=== PATIENT | female | born 1960 | race Caucasian/White ===

== ENCOUNTER 2017-07-09 08:04 | Inpatient (IN) | payer OTHER ==
[2017-07-09] MEDS ORDERED: FUROSEMIDE 40 MG/4 ML VIAL ONE (08:46)
[2017-07-09 08:59] LABS: Absolute Lymphocytes (CBC) 2.3 K/uL (0.7-4.9); Absolute Monocytes 1.1 K/uL (0.1-1.3); Absolute Neutrophil 6.8 K/uL (1.8-8.0); Basophils % 0.7 % (0-1.3); Eosinophils % 1.8 % (0-4.4); Hematocrit 38.8 % (36.0-45.0); Lymphocytes % 22.2 % (15.3-44.8); MCH 28.9 pg (27.0-35.0); MPV 8.7 fL (7.6-11.3); Monocytes % 10.4 % (3.3-12.3); RBC Red Blood Cell Count 4.31 M/uL (3.86-4.86)
[2017-07-09 09:05] LABS: Arterial Blood Carboxyhemoglob 4.2 % (0-1.5); Blood Gas Oxyhemoglobin 83.3 % (94-97)
[2017-07-09 09:08] LABS: Protime INR 0.97
--- NOTE | 2017-07-09 09:11 | RAD REPORT ---
EXAM DESCRIPTION: RAD - Chest Single View - 07/09/2017 9:00 am CLINICAL HISTORY: Shortness of breath, lower extremity swelling COMPARISON: July 2014 TECHNIQUE: AP portable chest image was obtained 0844 hours . FINDINGS: The interstitial markings are prominent and there are patchy alveolar opacities throughout the lung verma. Cardiomegaly is present even for portable imaging. Heart size is not substantially different from the prior study. Vascular engorgement is present. No pneumothorax seen. No large pleur al effusions seen. Small posterior gutter pleural effusions could still be present. Trachea is midlin e. No gross bony abnormality seen. No acute aortic findings suspected. IMPRESSION: Moderate CHF/ volume overload pattern.
--- NOTE | 2017-07-09 09:26 | RAD REPORT ---
EXAM DESCRIPTION: CT - Head Brain Wo Cont - 07/09/2017 9:20 am CLINICAL HISTORY: Trauma, transient alteration of awareness COMPARISON: CT head May 2008 TECHNIQUE: Axial 5 mm thick images of the head were obtained without IV contrast. All CT scans are performed using dose optimization technique as appropriate and may include automated exposure control or mA/KV adjustment according to patient size. FINDINGS: No intracranial hemorrhage, mass, edema or shift of mid-line structures. No acute infarcti on changes seen. No abnormal extra-axial fluid collections. Ventricles are normal. Mastoid air cells and visualized portions of the paranasal sinuses are clear. No acute bony findings. No significant change from the comparison. IMPRESSION: Negative non-contrast CT head examination.
[2017-07-09] MEDS ORDERED: ALBUTEROL 2.5 MG/3 ML NEB SOL ONE (09:49)
[2017-07-09 10:01] LABS: Urine Blood NEGATIVE (NEG); Urine Glucose NEGATIVE (NEG); Urine Protein NEGATIVE (NEG); Urine Specific Gravity 1.015 (1.005-1.030); Urine pH 5.5 (5.0-7.0)
[2017-07-09] MEDS ORDERED: LIDOCAINE JELLY 2%- 5 ML TUBE ONE (10:17)
[2017-07-09] MEDS ORDERED: LORazepam 2 MG/ML VIAL ONE ×3 (10:17→14:13)
--- NOTE | 2017-07-09 10:40 | EDPHYS ---
Physician Documentation [facility] Name: Harriet Perera Age: 56 yrs Sex: Female : 1960 Arrival Date: 07/09/2017 Time: 08:07 Bed 8 Private MD: Néstor Givens E ED Physician Wil Gorman HPI: 07/09 10:41 This 56 yrs old Female presents to ER via Ambulatory with complaints of Feet snw Swelling, Shortness Of Breath, Confusion. 10:41 The patient has shortness of breath at rest. Onset: The symptoms/episode began/occurred snw suddenly. Duration: The symptoms are continuous, and are steadily getting worse. Associated signs and symptoms: Pertinent positives: non-productive cough, NUGENT. Severity of symptoms: At their worst the symptoms were severe this morning. The patient has not experienced similar symptoms in the past. The patient has been recently seen by a physician: the patient's primary care provider, Dr. Sony Pickett with similar presenting complaints, outpt labs and added lasix 20mg po daily. Historical: - Allergies: 08:30 surgical tape; hb 08:30 Motrin; hb - Home Meds: 08:54 tramadol 50 mg Oral tab twice a day [Active]; bupropion HCl 100 mg Oral tab daily iw [Active]; furosemide 20 mg Oral tab 1 tab once daily [Active]; metformin 500 mg Oral tr24 twice a day [Active]; metoprolol tartrate 50 mg Oral tab 1 tab 2 times per day [Active]; Ambien 10 mg Oral tab 1 tab once daily [Active]; - PMHx: 08:30 Diabetes - NIDDM; Hypertension; hb - PSHx: 08:30 Cholecystectomy; hb - Immunization history:: Adult Immunizations up to date. - Social history:: Smoking status: Patient uses tobacco products, smokes one pack cigarettes per day. - Ebola Screening: : No symptoms or risks identified at this time. ROS: 10:21 Eyes: Negative for injury, pain, redness, and discharge, ENT: Negative for injury, snw pain, and discharge, Neck: Negative for injury, pain, and swelling, Cardiovascular: Negative for chest pain, palpitations, and edema. 10:21 Abdomen/GI: Negative for abdominal pain, nausea, vomiting, diarrhea, and constipation, Back: Negative for injury and pain, : Negative for injury, bleeding, discharge, and swelling, MS/Extremity: Negative for injury and deformity, Skin: Negative for injury, rash, and discoloration, Neuro: Negative for headache, weakness, numbness, tingling, and seizure, Psych: Negative for depression, anxiety, suicide ideation, homicidal ideation, and hallucinations. 10:21 Constitutional: Positive for body aches, fatigue, malaise, poor PO intake. 10:21 Respiratory: Positive for shortness of breath, on exertion. Exam: 08:37 Eyes: Pupils equal round and reactive to light, extra-ocular motions intact. Lids and snw lashes normal. Conjunctiva and sclera are non-icteric and not injected. Cornea within normal limits. Periorbital areas with no swelling, redness, or edema. ENT: Nares patent. No nasal discharge, no septal abnormalities noted. Tympanic membranes are normal and external auditory canals are clear. Oropharynx with no redness, swelling, or masses, exudates, or evidence of obstruction, uvula midline. Mucous membranes moist. Neck: Trachea midline, no thyromegaly or masses palpated, and no cervical lymphadenopathy. Supple, full range of motion without nuchal rigidity, or vertebral point tenderness. No Meningismus. Chest/axilla: Normal chest wall appearance and motion. Nontender with no deformity. No lesions are appreciated. 08:37 Abdomen/GI: Soft, non-tender, with normal bowel sounds. No distension or tympany. No guarding or rebound. No evidence of tenderness throughout. Back: No spinal tenderness. No costovertebral tenderness. Full range of motion. 08:37 Constitutional: The patient appears awake, obese, in obvious distress, obviously ill, unkempt. 08:37 Constitutional: The patient appears diaphoretic. 08:37 Head/face: Noted is abrasion(s), that are moderate, of the right cheek. 08:37 Cardiovascular: Rhythm: regular, Pulses: no pulse deficits are appreciated, Heart sounds: murmur, Edema: 3+ edema to level of , JVD: is noted bilaterally. 08:37 Respiratory: moderate respiratory distress is noted, Respirations: shallow respirations, tachypnea, Breath sounds: decreased breath sounds, are located in both bases. 08:37 Skin: lower extremities bilaterally with erythema, warmth. 08:37 Neuro: Orientation: to person, confused, awake and talking but speech does not flow and pt has difficulty answering questions, Motor: Vital Signs: 08:23 BP 130 / 78; Pulse 74; Resp 21; Temp 98.1(O); Pulse Ox 75% on R/A; Pain 4/10; hb 08:30 Pulse Ox 90% on 3 lpm NC; hb 09:25 BP 130 / 75; Pulse 76; Resp 17; Pulse Ox 96% on 35% BiPAP; hb 10:06 BP 126 / 67; Pulse 64; Resp 20; Pulse Ox 93% on 35% BiPAP; hb 11:00 BP 120 / 65; Pulse 69; Resp 68; Pulse Ox 92% on 35% BiPAP; hb 11:45 BP 154 / 65; Pulse 66; Resp 22; Pulse Ox 92% on 35% BiPAP; hb 12:30 BP 141 / 73; Pulse 77; Resp 22; Pulse Ox 95% on 35% BiPAP; hb MDM: 08:20 Patient medically screened. snw 10:39 Data reviewed: vital signs, nurses notes. Data interpreted: Pulse oximetry: on room air snw is 77 %. Interpretation: hypoxia. Plan: will initiate a nebulizer treatment. placed on bi-pap. Counseling: I had a detailed discussion with the patient and/or guardian regarding: the historical points, exam findings, and any diagnostic results supporting the discharge/admit diagnosis, lab results, radiology results, the need for further work-up and treatment in the hospital. Physician consultation: Citlaly Medina MD was called at 10:00, was contacted at 10:00, regarding admission, to the ICU, patient's condition. 07/09 08:35 Order name: Basic Metabolic Panel; Complete Time: 11:28 snw 07/09 08:35 Order name: Blood Culture Adult (2) snw 07/09 08:35 Order name: BNP; Complete Time: 09:20 snw 07/09 08:35 Order name: C-Reactive Protein; Complete Time: 11:28 snw 07/09 08:35 Order name: CBC with Diff; Complete Time: 09:07 snw 07/09 08:35 Order name: Ckmb; Complete Time: 11:28 snw 07/09 08:35 Order name: CPK; Complete Time: 11:28 snw 07/09 08:35 Order name: Lactate; Complete Time: 09:16 snw 07/09 08:35 Order name: LFT's; Complete Time: 11:28 snw 07/09 08:35 Order name: Lipase; Complete Time: 11:28 snw 07/09 08:35 Order name: Procalcitonin; Complete Time: 10:18 snw 07/09 08:35 Order name: Protime (+inr); Complete Time: 09:16 snw 07/09 08:35 Order name: Ptt, Activated; Complete Time: 09:16 snw 07/09 08:35 Order name: Troponin (emerg Dept Use Only); Complete Time: 09:18 snw 07/09 08:35 Order name: CT Head Brain wo Cont; Complete Time: 09:29 snw 07/09 08:35 Order name: Chest Single View XRAY; Complete Time: 09:16 snw 07/09 08:43 Order name: Glucose, Ancillary Testing; Complete Time: 08:44 EDMS 07/09 08:58 Order name: BIPAP snw 07/09 09:05 Order name: ABG Arterial Blood Gas; Complete Time: 09:07 EDMS 07/09 09:13 Order name: Urine Dipstick--Ancillary (enter results); Complete Time: 10:13 bd 07/09 09:53 Order name: Echo w/ Doppler snw 07/09 10:45 Order name: CONS Physician Consult EDMS 07/09 10:45 Order name: CONS Physician Consult EDMS 07/09 12:35 Order name: Glucose, Ancillary Testing; Complete Time: 12:45 EDMS 07/09 12:55 Order name: Lactate Sepsis 2 HR Follow-up; Complete Time: 13:04 EDMS 07/09 08:35 Order name: Accucheck; Complete Time: 08:42 snw 07/09 08:35 Order name: Cardiac monitoring; Complete Time: 08:42 snw 07/09 08:35 Order name: EKG - Nurse/Tech; Complete Time: 08:42 snw 07/09 08:35 Order name: IV Saline Lock - Large Bore; Complete Time: 08:42 snw 07/09 08:35 Order name: Labs collected and sent; Complete Time: 08:42 snw 07/09 08:35 Order name: O2 Per Protocol; Complete Time: 08:42 snw 07/09 08:35 Order name: O2 Sat Monitoring; Complete Time: 08:42 [facility] 07/09 08:35 Order name: Urine Dipstick-Ancillary (obtain specimen); Complete Time: 09:06 [facility] 07/09 08:35 Order name: Watkins; Complete Time: 09:06 [facility] 07/09 10:45 Order name: NPO EDMS Administered Medications: 08:45 Drug: Lasix 40 mg Route: IVP; Site: right antecubital; hb 09:28 Follow up: Response: No adverse reaction hb 09:53 Drug: Albuterol 2.5 mg Route: Inhalation; ph 10:20 Drug: Albuterol 2.5 mg Route: Inhalation; hb 10:20 Drug: Lidocaine Solution (4%) 1 application Route: Topical; Site: affected area; hb 10:22 Drug: Ativan 1 mg Route: IVP; Site: right antecubital; hb 10:45 Follow up: Response: No adverse reaction hb 10:44 Drug: Albuterol 2.5 mg Route: Inhalation; hb 11:42 Drug: Ativan 1 mg Route: IVP; Site: right antecubital; hb Point of Care Testing: Blood Glucose: 08:42 Blood Glucose: 141 mg/dL; hb 12:34 Blood Glucose: 132 mg/dL; hb Ranges: Critical Glucose Levels:Adult <50 mg/dl or >400 mg/dl <40 mg/dl or >180 mg/dl Disposition: 15:14 Co-signature as Attending Physician, Wil Gorman MD I agree with the assessment and pao plan of care. Disposition: 07/09/17 10:39 Hospitalization ordered by Citlaly Medina for Inpatient Admission. Preliminary diagnosis are Unspecified systolic (congestive) heart failure, Respiratory failure, unspecified with hypoxia. - Bed requested for Intensive Care Unit. - Status is Inpatient Admission. hb - Condition is Serious. - Problem is an acute exacerbation. - Symptoms are unchanged. UTI on Admission? No Signatures: Dispatcher [employer] EDMS Nia Gong Corey, MD MD cha Therrien, Shelly, QUILL WINDER-C QUILL WINDER-Csnw Shayna Espinosa RN RN Diane Bunch RN RN ph Baxter, Heather, RN RN hb Corrections: (The following items were deleted from the chart) 11:42 10:39 Hospitalization Ordered by Citlaly Medina MD for Inpatient Admission. Preliminary bd diagnosis is Unspecified systolic (congestive) heart failure; Respiratory failure, unspecified with hypoxia. Bed requested for Intensive Care Unit. Status is Inpatient Admission. Condition is Serious. Problem is an acute exacerbation. Symptoms are unchanged. UTI on Admission? No. snw 13:04 11:42 07/09/2017 10:39 Hospitalization Ordered by Citlaly Medina MD for Inpatient hb Admission. Preliminary diagnosis is Unspecified systolic (congestive) heart failure; Respiratory failure, unspecified with hypoxia. Bed requested for Intensive Care Unit. Status is Inpatient Admission. Condition is Serious. Problem is an acute exacerbation. Symptoms are unchanged. UTI on Admission? No. bd
--- NOTE | 2017-07-09 10:40 | ER ---
Nurse's Notes [facility] Name: Harriet Perera Age: 56 yrs Sex: Female : 1960 Arrival Date: 07/09/2017 Time: 08:07 Bed 8 Private MD: Néstor Givens E Diagnosis: Unspecified systolic (congestive) heart failure;Respiratory failure, unspecified with hypoxia Presentation: 07/09 08:27 Presenting complaint: Patient states: BLE swelling and SOB x 2-3 days. at bedside also reports pt seems confused, home SpO2 60s, does not use home O2. Transition of care: patient was not received from another setting of care. Onset of symptoms is unknown. Risk Assessment: Do you want to hurt yourself or someone else? Patient reports no desire to harm self or others. Note Diaphoretic, SpO2 75% on RA. Care prior to arrival: None. 08:27 Method Of Arrival: Ambulatory 08:27 Acuity: CHRIS 2 hb Historical: - Allergies: 08:30 surgical tape; hb 08:30 Motrin; hb - Home Meds: 08:54 tramadol 50 mg Oral tab twice a day [Active]; bupropion HCl 100 mg Oral tab daily iw [Active]; furosemide 20 mg Oral tab 1 tab once daily [Active]; metformin 500 mg Oral tr24 twice a day [Active]; metoprolol tartrate 50 mg Oral tab 1 tab 2 times per day [Active]; Ambien 10 mg Oral tab 1 tab once daily [Active]; - PMHx: 08:30 Diabetes - NIDDM; Hypertension; hb - PSHx: 08:30 Cholecystectomy; hb - Immunization history:: Adult Immunizations up to date. - Social history:: Smoking status: Patient uses tobacco products, smokes one pack cigarettes per day. - Ebola Screening: : No symptoms or risks identified at this time. Screenin:31 Abuse screen: Denies threats or abuse. Denies injuries from another. Nutritional hb screening: No deficits noted. Tuberculosis screening: No symptoms or risk factors identified. Fall Risk Total Glasgow Fall Scale indicates Low Risk Score (25-44 pts). Fall prevention measures have been instituted. Side Rails Up X 2 Frequent Obs/Assesments occuring Family Present and informed to notify staff if they need to leave bedside As available Patient and Family Educated on Fall Prevention Program and strategies. Assessment: 08:25 General: Appears distressed, ill, Behavior is cooperative, anxious. Pain: Complains of hb pain in right leg and left leg Pain currently is 4 out of 10 on a pain scale. Neuro: Level of Consciousness is awake, obeys commands, confused, Oriented to person, Pupils are PERRLA. Cardiovascular: Heart tones S1 S2 present Capillary refill < 3 seconds Edema is 4+ to left ankle and right ankle Rhythm is regular. Respiratory: Airway is patent Trachea midline Respiratory effort is labored, Respiratory pattern is tachypnea Breath sounds are diminished bilaterally. GI: No signs and/or symptoms were reported involving the gastrointestinal system. : No signs and/or symptoms were reported regarding the genitourinary system. EENT: No signs and/or symptoms were reported regarding the EENT system. Derm: No signs and/or symptoms reported regarding the dermatologic system. Skin has blisters on left lower leg Skin is diaphoretic, Skin is pale, Skin temperature is cool. Musculoskeletal: No signs and/or symptoms reported regarding the musculoskeletal system. 09:00 Reassessment: Pt to CT via stretcher with tech. hb 09:16 Reassessment: Pt returned from CT via stretcher with tech. BIPAP applied. hb 10:07 Reassessment: No changes from previously documented assessment. Patient and/or family hb updated on plan of care and expected duration. Pain level reassessed. Lactate 24, sepsis bolus not ordered due to fluid overload per RIRI العراقي. 10:40 Reassessment: Pt agitated, confused, attempting to to climb out of bed, says she is hb fine and wants to go home, SpO2 70s after she pulled of BIPAP. SUSTAINABLE SYSTEMS ANALYST Dulce Maria notified, Ativan administered as ordered. remains at bedside. 11:39 Reassessment: Pt trying to get out of bed, insisting she has to urinate, refusing to hb keep BIPAP on, says she wants to go home now. at bedside attempting to reorient pt and keep her in bed. SpO2 70s without BIPAP. RIRI العراقي notified, repeat Ativan administered as ordered. Pt placed on bedpan and BIPAP reapplied. remains at bedside. Admission ordered, awaiting room assignment. 12:30 Reassessment: No changes from previously documented assessment. Patient and/or family hb updated on plan of care and expected duration. Pain level reassessed. Vital Signs: 08:23 BP 130 / 78; Pulse 74; Resp 21; Temp 98.1(O); Pulse Ox 75% on R/A; Pain 4/10; hb 08:30 Pulse Ox 90% on 3 lpm NC; hb 09:25 BP 130 / 75; Pulse 76; Resp 17; Pulse Ox 96% on 35% BiPAP; hb 10:06 BP 126 / 67; Pulse 64; Resp 20; Pulse Ox 93% on 35% BiPAP; hb 11:00 BP 120 / 65; Pulse 69; Resp 68; Pulse Ox 92% on 35% BiPAP; hb 11:45 BP 154 / 65; Pulse 66; Resp 22; Pulse Ox 92% on 35% BiPAP; hb 12:30 BP 141 / 73; Pulse 77; Resp 22; Pulse Ox 95% on 35% BiPAP; hb ED Course: 08:07 Patient arrived in ED. mr 08:08 Néstor Givens MD is Private Physician. mr 08:20 Dulce Maria Loomis [facility]C [facility] snw 08:20 Wil Gorman MD is Attending Physician. snw 08:26 Patient has correct armband on for positive identification. Placed in gown. Bed in low hb position. Call light in reach. Side rails up X2. Adult w/ patient. 08:29 Triage completed. hb 08:30 First set of blood cultures drawn by me. jb1 08:31 Arm band placed on right wrist. hb 08:41 Arabella Izaguirre, RN is Primary Nurse. hb 08:45 Second set of blood cultures drawn by me. jb1 08:47 Initial lab(s) drawn, by me, sent to lab. Inserted saline lock: 22 gauge in right jb1 forearm, using aseptic technique. Blood collected. 08:52 X-ray completed. Portable x-ray completed in exam room. Patient tolerated procedure jb2 well. 08:53 Chest Single View XRAY In Process Unspecified. EDMS 09:01 Watkins cath inserted, using sterile technique, 16 Fr., by me, balloon inflated, to ph gravity drainage, urine specimen collected. returned clear yellow urine. Patient tolerated well. 09:20 CT Head Brain wo Cont In Process Unspecified. EDMS 09:20 Notified Nurse Practitioner and/or Physician Pad Making Machine Operator of a critical lab result(s), iw Lactate=24. 10:38 Citlaly Medina MD is Hospitalizing Provider. snw 11:43 BIPAP Sent. hb 12:39 Dr. Bruce was notified about the consult. bd Administered Medications: 08:45 Drug: Lasix 40 mg Route: IVP; Site: right antecubital; hb 09:28 Follow up: Response: No adverse reaction hb 09:53 Drug: Albuterol 2.5 mg Route: Inhalation; ph 10:20 Drug: Albuterol 2.5 mg Route: Inhalation; hb 10:20 Drug: Lidocaine Solution (4%) 1 application Route: Topical; Site: affected area; hb 10:22 Drug: Ativan 1 mg Route: IVP; Site: right antecubital; hb 10:45 Follow up: Response: No adverse reaction hb 10:44 Drug: Albuterol 2.5 mg Route: Inhalation; hb 11:42 Drug: Ativan 1 mg Route: IVP; Site: right antecubital; hb Point of Care Testing: Blood Glucose: 08:42 Blood Glucose: 141 mg/dL; hb 12:34 Blood Glucose: 132 mg/dL; hb Ranges: Output: 10:06 Urine: 1200ml (Watkins); Total: 1200ml. hb 11:54 Urine: 1400ml (Watkins); Total: 2600ml. hb Outcome: 10:39 Decision to Hospitalize by Provider. snw 13:04 Patient left the ED. hb Signatures: Dispatcher [employer] EDMS Heath Duckworth jb1 Nia Gong Shelly, INTEGRITY ANALYST-C INTEGRITY ANALYST-Xenia Hazel Montrell Donnelly pranay2 Shayna Espinosa, SARA RUIZ iw Diane Bunch RN RN ph Baxter, Heather, RN RN hb Corrections: (The following items were deleted from the chart) 08:30 08:25 BP 130 / 78; Pulse 74bpm; Resp 21bpm; Pulse Ox 75% RA; Temp 98.1F Oral; Pain hb 4/10; hb 09:32 09:25 BP 130 / 75; Pulse 76bpm; Resp 17bpm; Pulse Ox 97% 02 35% BiPAP; hb hb
[2017-07-09] MEDS ORDERED: ACETAMINOPHEN 500 MG TAB PO PRN (10:41)
[2017-07-09] MEDS ORDERED: ONDANSETRON 4 MG/2 ML VIAL IV PRN (10:41)
[2017-07-09 11:19] LABS: CKMB Creatine Kinase MB 5.5 ng/ml (0.3-4.0); Potassium 4.5 mEq/L (3.6-5.0)
[2017-07-09 11:27] LABS: Albumin 3.9 g/dL (3.2-5.5); Bilirubin Direct 0.1 mg/dL (0-0.2); Bilirubin Total 0.4 mg/dL (0.3-1.2); C-Reactive Protein 40.2 mg/L (<10.0); Protein, Total 7.9 g/dL (6.0-8.3)
[2017-07-09] MEDS: INSULIN -REGULAR HUMAN 50 UNIT/0.5 ML ML SQ SCH ×3 (11:30→20:10)
--- NOTE | 2017-07-09 11:30 | P.HP ---
Certification for Inpatient Patient admitted to: Inpatient With expected LOS: >2 Midnights Patient will require the following post-hospital care: None Practitioner: I am a practitioner with admitting privileges, knowledge of patient current condition, hospital course, and medical plan of care. Services: Services provided to patient in accordance with Admission requirements found in Title 42 Section 412.3 of the Code of Federal Regulations Patient History Date of Service: 07/09/17 Primary Care Provider: Dr Givens Reason for admission: Dyspnea and AMS History of Present Illness: This is a 56-year-old female with significant past medical history of obstructive sleep apnea, hypertension, diabetes, obesity, generalized anxiety disorder who presented to the ED with altered mental status and dyspnea. Patient's was at bedside who provided most of the history. Per the at bedside patient has been on altered and Dyspnea for about 1-2 weeks which has gotten progressively worse. Patient started acting different since last night and thus he decided to bring her in to the hospital today. Patient has been sleeping more during the day time and has been appearing more confused for past 1 week. Patient has a long history of obstructive sleep apnea however does not wearing the CPAP machine at night time and has not got her sleep study done which was recommended for her for years ago per . also complains of BL LE and UE swelling. Family member called the primary care office and told them about the swelling. PCP prescribed furosemide 20 mg, however the swelling did not go down and thus was brought over to the ER for further care. In the ER patient was hypoxic very lethargic and was thus placed on BiPAP. Initial ABG was consistent with hypercapnic respiratory failure. Generalized anasarca was also noted. Patient was then referred for admission for acute respiratory failure and AMS. Allergies ibuprofen Allergy (Intermediate, Verified 07/14/14 22:01) Hives/Rash surgical tape Allergy (Uncoded 05/11/16 08:10) Unknown Home Medications: Metoprolol Tartrate [Lopressor*] 25 mg PO BID #60 tab 07/19/14 - Past Medical/Surgical History Diabetic: No -: HTN -: CHRONIC BACK PAIN -: DEUARDA - Family History Mother Notes: DENIES ANY FAMILY HISTORY - Social History Alcohol use: No CD- Drugs: No Caffeine use: No Review of Systems General: As per HPI Physical Examination - Physical Exam General: Alert, Moderate distress, Confused, Obese, Other (On BIPAP) HEENT: Atraumatic, Other (Dilated Pupils BL), EOMI Neck: Supple, JVD distended Respiratory: Normal air movement, Crackles/rales Cardiovascular: Regular rate/rhythm, Normal S1 S2, Systolic murmur Gastrointestinal: Normal bowel sounds, No tenderness, Distended Musculoskeletal: No tenderness, Swelling (BL UE and LE 2+ Edema ), Other ( Generalzied Anasarca) Integumentary: No rashes Neurological: Normal speech, Normal tone, Abnormal strength Lymphatics: No axilla or inguinal lymphadenopathy - Studies Laboratory Data (last 24 hrs) 07/09/17 08:45: PT 11.5, INR 0.97, APTT 24.9 07/09/17 08:45: WBC 10.5, Hgb 12.5, Hct 38.8, Plt Count 242 07/09/17 08:45: B-Natriuretic Peptide 82 07/09/17 08:45: Sodium 137, Potassium 4.5, Glucose 156 H, Lipase 30 Assessment and Plan - Problems (Diagnosis) (1) Acute respiratory failure Current Visit: Yes Status: Acute Plan: Hypercapnic Hyoxemic Respiratory Failure, Most likely related to her NELLY vs CHF exacerbation -Currently on BIPAP. Will try to wean to NC -Pulmonology consulted. Reccs awaiting -Pt will need an Outpt Sleep study done. She was advised to get it done in 2014 but has not done so. she has been using home oxygen at night time. Pt is noncompliant with her medication as well. -Educated on Diet modification and life modification to improve quality of life. Qualifiers: Respiratory failure complication: hypoxia and hypercapnia Qualified Code(s) : J96.01 - Acute respiratory failure with hypoxia; J96.02 - Acute respiratory failure with hypercapnia (2) Altered mental status Current Visit: Yes Status: Acute Plan: Lethargic and AAOx 2. Most Likely 2.2 to Hypercapnic RF. -See # 1 -UA negative for acute infectious process -Xray with Volume overload. -Blood culture pending Qualifiers: Altered mental status type: disorientation Qualified Code(s): R41.0 - Disorientation, unspecified (3) NELLY (obstructive sleep apnea) Current Visit: Yes Status: Acute Plan: See # 1 (4) Acute exacerbation of CHF (congestive heart failure) Current Visit: Yes Status: Acute Plan: Acute Exacerbation of CHF. -Last Echo in 2014 was WNL with EF of 56% and no Diastolic dysfunction. Patient however does have severe cardiomegaly on the xray and Volume overload pattern on the xray. Pt's Dyspnea most likely is 2.2 to hypercapnia resulting from her NELLY and her noncompliance with CPAP. However at this time Pt may need to be evaluated again for CHF. -Will repeat ECHO at this time -Lasix 40mg BID for now -Cardiology consulted. Will Await Reccs -Pt on BB but noncompliant with medication. 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
[2017-07-09 13:22] VITALS: BMI 55.0
--- NOTE | 2017-07-09 14:37 | ECHO ---
HEIGHT: 5 ft 5 in WEIGHT: 331 lb 2 oz DATE OF STUDY: 07/09/[address]: Dulce Maria Loomis STUDIO ASSOCIATE-BC 2-DIMENSIONAL: YES M.MODE: YES DOPPLER: YES COLOR FLOW: YES TDS: YES PORTABLE: YES DEFINITY: NO BUBBLE STUDY: NO DIAGNOSIS: MURMUR, CONGESTIVE HEART FAILURE CARDIAC HISTORY: CATHERIZATION: SURGERY: PROSTHETIC VALVE: PACEMAKER: MEASUREMENTS (cm) DIASTOLIC (NORMALS) SYSTOLIC (NORMALS) IVSd 1.3 (0.6-1.2) LA Diam 4.7 (1.9-4.0) LVEF 60-69% LVIDd 5.0 (3.5-5.7) LVIDs 3.4 (2.0-3.5) %FS 31% LVPWd 1.4 (0.6-1.2) Ao Diam 2.8 (2.0-3.7) 2 DIMENSIONAL ASSESSMENT: RIGHT ATRIUM: NORMAL LEFT ATRIUM: DILATED RIGHT VENTRICLE: NORMAL LEFT VENTRICLE: LEFT VENTRICULAR HYPERTROPHY TRICUSPID VALVE: NORMAL MITRAL VALVE: NORMAL PULMONIC VALVE: NORMAL AORTIC VALVE: NORMAL PERICARDIAL EFFUSION: NONE AORTIC ROOT: NORMAL LEFT VENTRICULAR WALL MOTION: NORMAL DOPPLER/COLOR FLOW: MILD TRICUSPID REGURGITATION. NORMAL RIGHT VENTRICULAR SYSTOLIC PRESSURE. COMMENTS: NORMAL LEFT VENTRICULAR EJECTION FRACTION. LEFT VENTRICULAR HYPERTROPHY. DILATED LEFT ATRIUM. MILD TRICUSPID REGURGITATION. TECHNOLOGIST: Bernie RAMIREZ
[2017-07-09] MEDS: FUROSEMIDE 40 MG/4 ML VIAL IV SCH (16:55)
[2017-07-09] MEDS: LORazepam 2 MG/ML VIAL IV PRN ×2 (16:56→22:23)
[2017-07-09] MEDS: ENOXAPARIN 40 MG/0.4 ML SQ SCH (16:56)
--- NOTE | 2017-07-09 18:00 | CON ---
History Of Present Illness: Ms. Perera is very confused. She cannot provide a history or review of sy stems herself. Reports from the emergency room and from the nurses who spoke with family. Family is not here. Note that the main reason for coming here was swelling, but I think the actually brought her because she was getting more confused. The patient has a history of sleep apnea and Pick wickian syndrome. She is morbidly obese. She has underlying hypertension. She uses CPAP machine. She uses Lasix as an outpatient, but just 20 mg once a day, apparently does not use that sometimes. She also uses tramadol, bupropion, metoprolol 50 b.i.d., Ambien. She apparently has not required mor e aggressive therapy and metformin 500 mg twice a day for her diabetes. Physical Examination: General: The patient is morbidly obese. She is somnolent, easily arousable. She will speak, does n ot make much sense. Lungs: Reveal normal breath sounds on both sides. Heart: Unremarkable. Her chest x-ray does not reveal pulmonary edema. There is a lot of tissue to penetrate and I think t here may be a little bit of interstitial fluid, but certainly not much. A CAT scan of the head is un remarkable. It is without contrast. The patient's laboratory exam is quite revealing. She has a normal hemoglobin and hematocrit. Her B -natriuretic peptide and troponins are all normal, but she has a very elevated partial pressure of CO 2. It was 78.4. Her pH was 7.31, base excess 11.8, so she has a severe respiratory acidosis with pa rtial compensation metabolically and I believe right now she is probably CO2 narcotic. She will prob ably need to be on BiPAP or intubated fairly soon if these things do not improve. The patient's ejec tion fraction is normal both today and 3 years ago. She has never had myocardial infarction, stroke. She uses no tobacco. No illegal drugs, rare alcohol. I suspect the patient's main problem now is respiratory failure from Pickwickian syndrome, CO2 retention, and resulting respi ratory acidosis and CO2 narcosis. SH/MODL Voice ID: [id number] Report ID: [id number]
[2017-07-09 19:36] LABS: Arterial Blood Carboxyhemoglob 3.1 % (0-1.5); Blood Gas Oxyhemoglobin 87.8 % (94-97); Blood O2 Saturation 91.5 % (92-98.5)
[2017-07-09] MEDS: GABAPENTIN 300 MG CAP PO SCH (20:09)
[2017-07-09] MEDS: METOPROLOL TAR 50 MG TAB PO SCH (20:09)
[2017-07-09] MEDS: ZOLPIDEM TARTRATE 10 MG TABLET PO SCH (20:09)
[2017-07-10] MEDS: LORazepam 2 MG/ML VIAL IV PRN (04:48)
[2017-07-10 05:06] LABS: Absolute Lymphocytes (CBC) 1.7 K/uL (0.7-4.9); Absolute Monocytes 0.8 K/uL (0.1-1.3); Absolute Neutrophil 6.2 K/uL (1.8-8.0); Basophils % 0.4 % (0-1.3); Eosinophils % 2.1 % (0-4.4); Hematocrit 39.2 % (36.0-45.0); Lymphocytes % 19.1 % (15.3-44.8); MCV 89.6 fL (80-100); MPV 8.3 fL (7.6-11.3); RBC Red Blood Cell Count 4.37 M/uL (3.86-4.86)
[2017-07-10 05:14] LABS: ALT/SGPT 29 IU/L (10-60); AST/SGOT 29 IU/L (10-42); Albumin 3.7 g/dL (3.2-5.5); Alkaline Phosphatase 61 IU/L (42-121); BUN Blood Urea Nitrogen 17 mg/dL (6-20); Bicarbonate 40 mEq/L (21-31); Bilirubin Total 0.9 mg/dL (0.3-1.2); Glucose Level 144 mg/dL (65-120); Potassium 4.1 mEq/L (3.6-5.0); Protein, Total 7.4 g/dL (6.0-8.3); Sodium Level 137 mEq/L (135-145)
[2017-07-10] MEDS: INSULIN -REGULAR HUMAN 50 UNIT/0.5 ML ML SQ SCH ×4 (07:30→21:00)
--- NOTE | 2017-07-10 07:53 | P.CNS ---
Date of Consult: 07/10/17 Reason for Consult: Respiratory failure Primary Care Provider: Dr Givens Chief Complaint: Dyspnea and AMS History of Present Illness: Patient is 56 years of age a poor historian apparently he came here [place] and then ended up here in the ICU patient does not recall the events that precipitated her admission and she denies shortness of breath. Review of for medical record stated that her shortness of breath altered mental status and got progressively worse excessive daytime somnolence. Patient has oxygen at home was informed to have a sleep study done does not have CPAP at home sleeps in a recliner Allergies ibuprofen Allergy (Intermediate, Verified 07/14/14 22:01) Hives/Rash surgical tape Allergy (Uncoded 05/11/16 08:10) Unknown Home Medications: Bupropion HCl 100 mg PO DAILY 07/09/17 Furosemide [Lasix] 20 mg PO DAILY 07/09/17 Gabapentin [Neurontin] 300 mg PO BID 07/09/17 Lisinopril 20 mg PO DAILY 07/09/17 Metformin HCl 500 mg PO BID 07/09/17 Metoprolol Tartrate [Lopressor] 50 mg PO BID 07/09/17 Tramadol HCl [Ultram] 50 mg PO BID PRN 07/09/17 Zolpidem Tartrate [Ambien] 10 mg PO BEDTIME 07/09/17 - Past Medical/Surgical History Diabetic: Yes -: HTN -: CHRONIC BACK PAIN -: dm -: 1ppd smoker -: obstructive sleep apnea -: obesity -: anxiety -: back pain -: oxygen use at night -: EDUARDA - Family History Mother Notes: DENIES ANY FAMILY HISTORY - Social History Smoking Status: Current every day smoker Alcohol use: Yes CD- Drugs: Yes Caffeine use: Yes Place of Residence: Home Review of Systems 10-point ROS is otherwise unremarkable General: Weakness Respiratory: Shortness of Breath Physical Examination Temp Pulse Resp BP Pulse Ox 98.6 F 76 16 126/72 98 07/10/17 04:00 07/10/17 07:00 07/10/17 07:00 07/10/17 07:00 07/10/17 07:00 General: Alert, Oriented x2 Neck: Supple Respiratory: Clear to auscultation bilaterally, Diminished Cardiovascular: No edema, Regular rate/rhythm Gastrointestinal: Normal bowel sounds, Soft and benign Laboratory Data (last 24 hrs) 07/09/17 08:45: PT 11.5, INR 0.97, APTT 24.9 07/09/17 08:45: WBC 10.5, Hgb 12.5, Hct 38.8, Plt Count 242 07/09/17 08:45: B-Natriuretic Peptide 82 07/09/17 08:45: Sodium 137, Potassium 4.5, BUN 21 H, Creatinine 0.70, Glucose 156 H, Total Bilirubin 0.4, AST 31, ALT 30, Alkaline Phosphatase 69, Lipase 30 - Problems (1) Respiratory failure Current Visit: Yes Status: Acute Plan: Patient is 56 years of age has respiratory failure I suspect chronic is hypercapnic active smoker history of COPD probably has obesity hyperventilation syndrome including obstructive airways disease chest x-ray bilateral haziness for bypass suspect from our obesity echocardiogram left ventricular function is normal left ventricular hypertrophy BNP normal patient is bronchodilators. Patient will qualify for home O2 she will need an outpatient sleep study high risk for obstructive sleep apnea Qualifiers: Chronicity: acute on chronic Respiratory failure complication: hypoxia and hypercapnia Qualified Code(s): J96.21 - Acute and chronic respiratory failure with hypoxia; J96.22 - Acute and chronic respiratory failure with hypercapnia
[2017-07-10] MEDS: GABAPENTIN 300 MG CAP PO SCH ×2 (08:03→20:25)
[2017-07-10] MEDS: METOPROLOL TAR 50 MG TAB PO SCH ×2 (08:03→20:25)
[2017-07-10] MEDS: LISINOPRIL 20 MG TAB PO SCH (08:04)
[2017-07-10] MEDS: FUROSEMIDE 40 MG/4 ML VIAL IV SCH ×2 (08:06→17:59)
[2017-07-10] MEDS: acetaZOLAMIDE 250 MG TAB PO SCH ×2 (08:08→20:25)
[2017-07-10] MEDS: buPROPion HCl 100 MG TAB PO SCH (08:10)
[2017-07-10] MEDS ORDERED: PANTOPRAZOLE 40 MG INJ IVP SCH (09:00)
--- NOTE | 2017-07-10 09:27 | RAD REPORT ---
EXAM DESCRIPTION: RAD - Chest Single View - 07/10/2017 6:28 am CLINICAL HISTORY: Shortness of breath. COMPARISON: 07/09/2017 FINDINGS: Portable technique limits examination quality. Mild improvement in these pulmonary edema pattern is seen. The heart is moderately enlarged in size. No displaced fractures. IMPRESSION: Mild improvement in CHF/ volume overload since the prior study.
[2017-07-10] MEDS: ARFORMOTEROL TARTRATE 15 MCG/2 ML VIAL.NEB NEB SCH ×2 (09:46→20:04)
[2017-07-10] MEDS: IPRATROPIUM BROM 0.5MG/2.5ML NEB SCH ×3 (09:46→20:05)
[2017-07-10 10:10] LABS: Phosphorus 4.4 mg/dL (2.5-4.3)
[2017-07-10 10:30] LABS: Arterial Blood Carboxyhemoglob 2.4 % (0-1.5); Blood Gas Oxyhemoglobin 78.6 % (94-97); Blood O2 Saturation 81.1 % (92-98.5)
--- NOTE | 2017-07-10 11:57 | P.PN ---
Subjective Date of Service: 07/10/17 Primary Care Provider: Dr Givens Chief Complaint: Dyspnea and AMS Patient seen and examined at bedside with RN. Chart reviewed. Case discussed with pulmonology and cardiology at this time. Patient currently has been weaned off to nasal cannula doing well overall. Patient states that she does not remember what happen yesterday but however feels much better today and is ready to go home. Patient educated on the importance of staying here in the hospital for appropriate diuresis. Patient also educated extensively on smoking cessation. Review of Systems General: As per HPI Physical Examination - Vital Signs Temperature: 98.0 F Blood Pressure: 116/81 Pulse: 75 Respirations: 21 Pulse Ox (%): 99 - Physical Exam General: Alert, Oriented x3, Mild distress, Obese HEENT: Atraumatic Neck: Supple, JVD not distended Respiratory: Normal air movement, Rhonchi/gurgles Cardiovascular: Regular rate/rhythm, Normal S1 S2 Gastrointestinal: Normal bowel sounds, Soft and benign, No tenderness, Distended Musculoskeletal: No tenderness, Swelling Integumentary: No rashes Neurological: Normal speech, Normal tone, Normal affect Lymphatics: No axilla or inguinal lymphadenopathy - Studies Medications List Reviewed: Yes Assessment & Plan - Problems (Diagnosis) (1) Acute respiratory failure Onset Date: 07/10/17 Current Visit: Yes Status: Acute Plan: Hypercapnic Hyoxemic Respiratory Failure, Most likely related to her NELLY vs OHS vs CHF exacerbation -Currently on NC. ABG pending -Pulmonology consulted. Reccs Appreciated -Sleep study for CPAP at home -Tranfer to floor -Diamox for Diuersis -Pt will need an Outpt Sleep study done. She was advised to get it done in 2014 but has not done so. she has been using home oxygen at night time. Pt is noncompliant with her medication as well. -Educated on Diet modification and life modification to improve quality of life. Qualifiers: Respiratory failure complication: hypoxia and hypercapnia Qualified Code(s) : J96.01 - Acute respiratory failure with hypoxia; J96.02 - Acute respiratory failure with hypercapnia (2) Altered mental status Onset Date: 07/10/17 Current Visit: Yes Status: Resolved Plan: Lethargic and AAOx 2 in ED. Most Likely 2.2 to Hypercapnic RF. Now AAO x 3 -See # 1 -UA negative for acute infectious process -Xray with Volume overload. -Blood culture pending Qualifiers: Altered mental status type: disorientation Qualified Code(s): R41.0 - Disorientation, unspecified (3) NELLY (obstructive sleep apnea) Onset Date: 07/10/17 Current Visit: Yes Status: Acute Plan: NELLY vs OHS -See # 1 (4) Acute exacerbation of CHF (congestive heart failure) Onset Date: 07/10/17 Current Visit: Yes Status: Acute Plan: Acute Exacerbation of CHF. -Patient does have severe cardiomegaly on the xray and Volume overload pattern on the xray. Pt's Dyspnea most likely is 2.2 to hypercapnia resulting from her NELLY and her noncompliance with CPAP. However at this time Pt may need to be evaluated again for CHF. -ECHO with Diastolic Dysfunction with Preserved EF function -Lasix 40mg BID and Diamox for now -Cardiology consulted. Reccs appreciated. -Pt on BB but noncompliant with medication. Last taken unknown. Will Hold in lieu of Respiratory Distress -Low NA and Fluid restriction in diet Qualifiers: Heart failure type: unspecified Qualified Code(s): I50.9 - Heart failure, unspecified (5) Anasarca Onset Date: 07/10/17 Current Visit: Yes Status: Acute Plan: Generalized Anasarca most likely related to her NELLY vs CHF -lasix BID 40mg and Diamox for now (6) Diabetes Onset Date: 07/10/17 Current Visit: Yes Status: Chronic Plan: ISS Qualifiers: Diabetes mellitus type: type 2 Diabetes mellitus [facility] insulin use: without long term care social worker use Diabetes mellitus complication status: without complication Qualified Code(s): E11.9 - Type 2 diabetes mellitus without complications (7) KEVIN (generalized anxiety disorder) Onset Date: 07/10/17 Current Visit: Yes Status: Chronic Plan: Restart Home medication (8) Morbid obesity Onset Date: 07/10/17 Current Visit: Yes Status: Chronic Discharge Plan: Home Plan to discharge in: 48 Hours - Code Status/Comfort Care Code Status Assessed: Yes Critical Care: Yes
[2017-07-10] MEDS: ENOXAPARIN 40 MG/0.4 ML SQ SCH (18:00)
[2017-07-10] MEDS: ZOLPIDEM TARTRATE 10 MG TABLET PO SCH (20:24)
--- NOTE | 2017-07-10 22:13 | PN ---
Date of Progress Note: 07/10/2017 Subjective: Ms. Perera was seen yesterday by Dr. Bruce for hypoxia, hypercapnia, and respiratory acid osis. She was on facial BiPAP. Overnight off the BiPAP on nasal cannula. No further arrhythmias no citlali. Echocardiogram did not reveal any congestive heart failure. Her problem included COPD and CO2 retention secondary to Pickwickian syndrome. We will sign off her case. SALVADOR/JOHN Voice ID: [id number] Report ID: [id number]
[2017-07-11] MEDS: IPRATROPIUM BROM 0.5MG/2.5ML NEB SCH ×3 (01:43→13:32)
[2017-07-11 05:20] LABS: Absolute Lymphocytes (CBC) 1.9 K/uL (0.7-4.9); Absolute Monocytes 0.9 K/uL (0.1-1.3); Absolute Neutrophil 6.9 K/uL (1.8-8.0); Basophils % 0.4 % (0-1.3); Eosinophils % 1.6 % (0-4.4); Hematocrit 41.1 % (36.0-45.0); Lymphocytes % 19.3 % (15.3-44.8); MCH 29.3 pg (27.0-35.0); MCV 89.7 fL (80-100); MPV 8.5 fL (7.6-11.3); RBC Red Blood Cell Count 4.59 M/uL (3.86-4.86)
[2017-07-11 05:51] LABS: Albumin 3.8 g/dL (3.2-5.5); Bilirubin Total 0.7 mg/dL (0.3-1.2); Potassium 4.5 mEq/L (3.6-5.0); Protein, Total 7.7 g/dL (6.0-8.3)
[2017-07-11] MEDS: INSULIN -REGULAR HUMAN 50 UNIT/0.5 ML ML SQ SCH ×2 (07:30→11:30)
--- NOTE | 2017-07-11 07:36 | RAD REPORT ---
EXAM DESCRIPTION: Binh Single View07/11/2017 6:55 am CLINICAL HISTORY: Shortness of breath COMPARISON: July 10, 2017 FINDINGS: The l pulmonary opacities appear resolved. The heart is moderately enlarged IMPRESSION: No acute abnormalities displayed
[2017-07-11] MEDS: ARFORMOTEROL TARTRATE 15 MCG/2 ML VIAL.NEB NEB SCH (07:57)
[2017-07-11 08:30] VITALS: O2SAT 96
[2017-07-11] MEDS: buPROPion HCl 100 MG TAB PO SCH (08:51)
[2017-07-11] MEDS: METOPROLOL TAR 50 MG TAB PO SCH (08:52)
[2017-07-11] MEDS: acetaZOLAMIDE 250 MG TAB PO SCH (08:53)
[2017-07-11] MEDS: LISINOPRIL 20 MG TAB PO SCH (08:53)
[2017-07-11] MEDS: GABAPENTIN 300 MG CAP PO SCH (08:53)
[2017-07-11] MEDS: FUROSEMIDE 40 MG/4 ML VIAL IV SCH (09:00)
[2017-07-11] MEDS ORDERED: NICOTINE 21 MG/PAT TD SCH (09:00)
--- NOTE | 2017-07-11 14:30 | P.DS ---
Admission Date: 07/09/17 Discharge Date: 07/11/17 Primary Care Provider: Dr Givens Disposition: ROUTINE DISCHARGE Discharge Condition: GOOD Reason for Admission: Dyspnea and AMS Consultations: Pulmonology Cardiology - Problems (1) Acute respiratory failure Onset Date: 07/10/17 Current Visit: Yes Status: Resolved Qualifiers: Respiratory failure complication: hypoxia and hypercapnia Qualified Code(s) : J96.01 - Acute respiratory failure with hypoxia; J96.02 - Acute respiratory failure with hypercapnia (2) Altered mental status Onset Date: 07/10/17 Current Visit: Yes Status: Resolved Qualifiers: Altered mental status type: disorientation Qualified Code(s): R41.0 - Disorientation, unspecified (3) NELLY (obstructive sleep apnea) Onset Date: 07/10/17 Current Visit: Yes Status: Chronic (4) Acute exacerbation of CHF (congestive heart failure) Onset Date: 07/10/17 Current Visit: Yes Status: Ruled-out Qualifiers: Heart failure type: unspecified Qualified Code(s): I50.9 - Heart failure, unspecified (5) Anasarca Onset Date: 07/10/17 Current Visit: Yes Status: Resolved (6) Diabetes Onset Date: 07/10/17 Current Visit: Yes Status: Chronic Qualifiers: Diabetes mellitus type: type 2 Diabetes mellitus technician terminal and repeater insulin use: without custodial use Diabetes mellitus complication status: without complication Qualified Code(s): E11.9 - Type 2 diabetes mellitus without complications (7) KEVIN (generalized anxiety disorder) Onset Date: 07/10/17 Current Visit: Yes Status: Chronic (8) Morbid obesity Onset Date: 07/10/17 Current Visit: Yes Status: Chronic Brief History of Present Illness: This is a 56-year-old female with significant past medical history of obstructive sleep apnea, hypertension, diabetes, obesity, generalized anxiety disorder who presented to the ED with altered mental status and dyspnea. Patient's was at bedside who provided most of the history. Per the at bedside patient has been on altered and Dyspnea for about 1-2 weeks which has gotten progressively worse. Patient started acting different since last night and thus he decided to bring her in to the hospital today. Patient has been sleeping more during the day time and has been appearing more confused for past 1 week. Patient has a long history of obstructive sleep apnea however does not wearing the CPAP machine at night time and has not got her sleep study done which was recommended for her for years ago per . also complains of BL LE and UE swelling. Family member called the primary care office and told them about the swelling. PCP prescribed furosemide 20 mg, however the swelling did not go down and thus was brought over to the ER for further care. In the ER patient was hypoxic very lethargic and was thus placed on BiPAP. Initial ABG was consistent with hypercapnic respiratory failure. Generalized anasarca was also noted. Patient was then referred for admission for acute respiratory failure and AMS. Hospital Course: Overall during the hospital stay patient remained stable Patient was initially admitted to the hospital for altered mental status and acute respiratory failure. For patient's acute respiratory failure which was most likely secondary to hypercapnia due to patient not having a CPAP machine at home due to her noncompliance with the study. Patient was found to have elevated CO2 on ABGs and was initially placed on BiPAP in the ER. Patient was initially very combative and was not able to keep the BiPAP on however as her CO2 went down she was more cooperative with a BiPAP machine and kept it on for a full 24 hr. Patient was then successfully be able to weaned off to nasal cannula and was transferred to the floor for further care. On the floor patient was educated extensively on the importance of getting a sleep study done to the that she came qualified to get a CPAP machine due to her history of NELLY which is most likely causing her chronic hypercapnia failure respiratory failure. Patient demonstrated understanding and stated that she would go get her sleep study done. Patient was initially altered mental due to hypercapnic respiratory failure which resolved once her respiratory failure resolved as well. Vital Signs/Physical Exam: Temp Pulse Resp BP Pulse Ox 97.8 F 65 20 96/42 L 93 07/11/17 08:00 07/11/17 08:53 07/11/17 08:00 07/11/17 08:53 07/11/17 08:00 General: Alert, In no apparent distress, Obese HEENT: Atraumatic, PERRLA, EOMI Neck: Supple, JVD not distended Respiratory: Clear to auscultation bilaterally, Normal air movement Cardiovascular: Regular rate/rhythm, Normal S1 S2 Gastrointestinal: Normal bowel sounds, No tenderness Musculoskeletal: No tenderness Integumentary: No rashes Neurological: Normal speech, Normal tone, Normal affect Lymphatics: No axilla or inguinal lymphadenopathy Laboratory Data at Discharge: WBC 9.9 K/uL (4.3-10.9) 07/11/17 04:49 Hgb 13.4 g/dL (12.0-15.0) 07/11/17 04:49 Hct 41.1 % (36.0-45.0) 07/11/17 04:49 Plt Count 249 K/uL (152-406) 07/11/17 04:49 PT 11.5 SECONDS (9.5-12.5) 07/09/17 08:45 INR 0.97 07/09/17 08:45 APTT 24.9 SECONDS (24.3-36.9) 07/09/17 08:45 Sodium 137 mEq/L (135-145) 07/11/17 04:49 Potassium 4.5 mEq/L (3.6-5.0) 07/11/17 04:49 BUN 25 mg/dL (6-20) H 07/11/17 04:49 Creatinine 1.03 mg/dL (0.44-1.00) H 07/11/17 04:49 Glucose 164 mg/dL (65-120) H 07/11/17 04:49 Phosphorus 4.4 mg/dL (2.5-4.3) H 07/10/17 04:50 Magnesium 2.0 mg/dL (1.8-2.5) 07/10/17 04:50 Total Bilirubin 0.7 mg/dL (0.3-1.2) 07/11/17 04:49 AST 29 IU/L (10-42) 07/11/17 04:49 ALT 32 IU/L (10-60) 07/11/17 04:49 Alkaline Phosphatase 69 IU/L (42-121) 07/11/17 04:49 B-Natriuretic Peptide 82 pg/ml (<=100) 07/09/17 08:45 Lipase 30 U/L (22-51) 07/09/17 08:45 Home Medications: Furosemide [Lasix*] 20 mg PO DAILY 07/09/17 Gabapentin [Neurontin*] 300 mg PO BID 07/09/17 Lisinopril 20 mg PO DAILY 07/09/17 Metformin HCl 500 mg PO BID 07/09/17 Metoprolol Tartrate [Lopressor*] 50 mg PO BID 07/09/17 Tramadol HCl [Ultram] 50 mg PO BID PRN 07/09/17 Zolpidem Tartrate [Ambien*] 10 mg PO BEDTIME 07/09/17 buPROPion HCl [Bupropion HCl] 100 mg PO DAILY 07/09/17 acetaZOLAMIDE [Diamox*] 125 mg PO BID #60 tab 07/11/17 New Medications: acetaZOLAMIDE [Diamox*] 125 mg PO BID #60 tab Patient Discharge Instructions: Please f.u with PCP to be setup for sleep study to get CPAP machine for your NELLY. New medication. Lasix 20mg Daily. Diamox 125mg BID. Continue taking. Metoprolol and lisinopril as prescribed by PCP. Call PCP if you need refills on them. Diet: Regular Activity: Ad silva Followup: Watson Mosher MD [ACTIVE - CAN ADMIT] - 1 Week (Call for appointment)
[2017-07-11 14:50] VITALS: BP 100/51; TEMP 97.6
== END 2017-07-11 14:15 | disposition home or self-care (01) | DRG 189 ==
LOC: ER 08:04 → ERHOLD 10:43 → 3RD-ICU 12:26 → 2ND 07-10 10:50
PROVIDERS: ADMIT Family Medicine; ATTEND Family Medicine
PROC: 5A09457 Assistance with Respiratory Ventilation, 24-96 Consecutive Hours, Continuous Positive Airway Pressure (ICD-10-PCS; principal; 2017-07-09)
DX: J96.02 Acute respiratory failure with hypercapnia (principal); Z68.43 Body mass index [BMI] 50.0-59.9, adult; J96.01 Acute respiratory failure with hypoxia; R41.82 Altered mental status, unspecified; G47.33 Obstructive sleep apnea (adult) (pediatric); E11.9 Type 2 diabetes mellitus without complications; F41.1 Generalized anxiety disorder; R60.1 Generalized edema; E66.01 Morbid (severe) obesity due to excess calories; F17.210 Nicotine dependence, cigarettes, uncomplicated; I10 Essential (primary) hypertension
CPT/HCPCS: 36415; 51702; 70450; 71045; 80048; 80053; 80076; 81003; 82550; 82553; 82805; 82962; 83605; 83690; 83735; 83880; 84100; 84145; 84443; 84484; 85025; 85610; 85730; 86140; 87040; 93306; 94640; 94660; 94760; 96374; 96375; 97163; 99285; C9113; J1650; J2405; J7605

== ENCOUNTER 2021-01-26 06:01 | Emergency (ER) | payer OTHER ==
[2021-01-26 07:19] LABS: Absolute Lymphocytes (CBC) 2.1 K/uL (0.7-4.9); Basophils % 0.7 % (0-1.3); Hematocrit 37.6 % (36.0-45.0); MPV 10.9 fL (7.6-11.3); RBC Red Blood Cell Count 4.22 M/uL (3.86-4.86)
[2021-01-26 07:20] LABS: Protime INR 0.99
[2021-01-26 07:46] LABS: ALT/SGPT 45 U/L (12-78); Albumin 3.1 g/dL (3.4-5.0); Alkaline Phosphatase 79 U/L (45-117); BUN Blood Urea Nitrogen 21 mg/dL (7-18); Bicarbonate 26 mmol/L (21-32); Bilirubin Direct < 0.1 mg/dL (0-0.2); Bilirubin Total 0.3 mg/dL (0.2-1.0); Glucose Level 200 mg/dL (74-106); NT PRO-BNP 2023 pg/mL (<125); Potassium 4.3 mmol/L (3.5-5.1); Protein, Total 7.9 g/dL (6.4-8.2); Sodium Level 138 mmol/L (136-145); Troponin (Emerg Dept Use Only) 0.02 ng/mL (0.0-0.045)
[2021-01-26 07:47] LABS: AST/SGOT 28 U/L (15-37); Magnesium 1.6 mg/dL (1.8-2.4)
[2021-01-26] MEDS ORDERED: Magnesium Sulfate 2gm IVPB 2 G/50 ML BAG IV ONE (07:59)
--- NOTE | 2021-01-26 08:40 | RAD REPORT ---
EXAM DESCRIPTION: RAD - Chest Single View - 01/26/2021 6:50 am CLINICAL HISTORY: DYSPNEA Chest pain. COMPARISON: Chest Pa And Lat (2 Views) dated 08/18/2020; Chest Single View dated 07/11/2017; Chest Sing le View dated 07/10/2017; Chest Single View dated 07/09/2017 FINDINGS: Portable technique limits examination quality. Mild to moderate pulmonary edema is seen. The heart is enlarged. No displaced fractures. IMPRESSION: Mild to moderate CHF.
[2021-01-26] MEDS ORDERED: FUROSEMIDE 40 MG/4 ML VIAL ONE (08:52)
--- NOTE | 2021-01-26 08:53 | ER ---
Nurse's Notes [facility] Name: Harriet Perera Age: 60 yrs Sex: Female : 1960 Arrival Date: 01/26/2021 Time: 06:05 Bed 14 Private MD: Diagnosis: Bradycardia, unspecified;Other specified heart block;Acute systolic (congestive) heart failure Presentation: 01/26 06:09 Chief complaint: Patient states: "I am having dizziness, tonight I got so light headed tw5 I felt like I was going to faint.". Coronavirus screen: Vaccine status: Patient reports receiving the 2nd dose of the covid vaccine. ASYM III. Ebola Screen: Patient negative for fever greater than or equal to 101.5 degrees Fahrenheit, and additional compatible Ebola Virus Disease symptoms Patient denies exposure to infectious person. Patient denies travel to an Ebola-affected area in the 21 days before illness onset. Initial Sepsis Screen: Does the patient meet any 2 criteria? No. Patient's initial sepsis screen is negative. Does the patient have a suspected source of infection? No. Patient's initial sepsis screen is negative. Risk Assessment: Do you want to hurt yourself or someone else? Patient reports no desire to harm self or others. Onset of symptoms was January 25, 2021. 06:09 Method Of Arrival: Wheelchair tw5 06:09 Acuity: CHRIS 3 tw5 Triage Assessment: 06:14 General: Appears in no apparent distress. obese, Behavior is calm, cooperative. Pain: tw5 Denies pain. Historical: - Allergies: 06:14 Motrin; tw5 06:14 surgical tape; tw5 - Home Meds: 06:14 metformin 750 mg oral Tb24 [Active]; metoprolol tartrate 50 mg Oral tab 1 tab 2 times tw5 per day [Active]; lisinopril 20 mg Oral tab 1 tab once daily [Active]; gabapentin 100 mg oral cap 1 cap 3 times per day [Active]; glipizide 10 mg Oral tab 1 tab once daily [Active]; Ozempic 0.25 mg or 0.5 mg(2 mg/1.5 mL) subcutaneous pnij 0.2 mL every two weeks [Active]; Chantix 0.5 mg oral tab 1 tab 2 times per day [Active]; - PMHx: 06:14 Diabetes - NIDDM; Hypertension; tw5 - PSHx: 06:14 Cholecystectomy; tw5 - Immunization history:: Adult Immunizations up to date. - Social history:: Smoking status: Patient reports the use of cigarette tobacco products, smokes one-half pack cigarettes per day. Screenin:17 Abuse screen: Denies threats or abuse. Denies injuries from another. Nutritional tw5 screening: No deficits noted. Tuberculosis screening: No symptoms or risk factors identified. Fall Risk Fall in past 12 months (25 points). Secondary diagnosis (15 points) Assessment: 07:38 General: Appears in no apparent distress. obese, unkempt, Behavior is cooperative, tw2 appropriate for age. Pain: Denies pain. Neuro: Level of Consciousness is awake, alert, obeys commands, Oriented to person, place, time, situation, Reports dizziness. Cardiovascular: Patient's skin is warm and dry. Respiratory: Airway is patent Respiratory effort is even, unlabored, Respiratory pattern is regular, symmetrical. Derm: Skin is dry. Musculoskeletal: Range of motion: intact in all extremities. 07:56 Reassessment: provider at bedside at this time going over results and POC. tw2 08:39 Reassessment: Patient appears in no apparent distress at this time. Patient and/or tw2 family updated on plan of care and expected duration. Pain level reassessed. Patient is alert, oriented x 3, equal unlabored respirations, skin warm/dry/pink. 09:51 Reassessment: Patient appears in no apparent distress at this time. Patient and/or tw2 family updated on plan of care and expected duration. Pain level reassessed. Patient is alert, oriented x 3, equal unlabored respirations, skin warm/dry/pink. Vital Signs: 06:09 BP 132 / 92; Pulse 86; Resp 18; Temp 98.6; Pulse Ox 93% on R/A; Weight 136.08 kg; tw5 Height 5 ft. 6 in. (167.64 cm); Pain 0/10; 07:07 BP 130 / 63; Pulse 50; Resp 18; Pulse Ox 92% ; sv1 07:26 BP 165 / 57; Pulse 69; Resp 17; Pulse Ox 94% on R/A; tw2 08:38 BP 150 / 68; Pulse 75; Resp 17; Pulse Ox 94% on R/A; tw2 09:50 BP 158 / 97; Pulse 71; Resp 17; Pulse Ox 96% on R/A; tw2 06:09 Body Mass Index 48.42 (136.08 kg, 167.64 cm) tw5 ED Course: 06:05 Patient arrived in ED. ja2 06:13 Triage completed. tw5 06:14 Arm band placed on left wrist. tw5 06:18 Sanjeev Moreau PA is PHCP. jr8 06:18 Lito Oscar MD is Attending Physician. jr8 06:24 Yaya Murillo, RN is Primary Nurse. sv1 06:50 XRAY Chest (1 view) In Process Unspecified. EDMS 07:06 Basic Metabolic Panel Sent. sv1 07:06 CBC with Diff Sent. sv1 07:06 LFT's Sent. sv1 07:06 Magnesium Sent. sv1 07:06 NT PRO-BNP Sent. sv1 07:07 PT-INR Sent. sv1 07:07 Troponin (emerg Dept Use Only) Sent. sv1 07:08 Patient has correct armband on for positive identification. Placed in gown. Bed in low sv1 position. Call light in reach. Side rails up X 1. Adult w/ patient. 07:08 Inserted saline lock: 20 gauge in right hand, using aseptic technique. sv1 07:10 Watkins cath inserted, using sterile technique, 18 Fr., by ca, balloon inflated, to tw2 gravity drainage, other Rachael, Tech served as sand mixer machine. 07:17 Primary Nurse role handed off by Yaya Murillo, SARA tw2 07:17 Shirley Sylvester RN is Primary Nurse. tw2 09:08 Report given to SARA [facility]. tw2 09:18 No provider procedures requiring assistance completed. Patient transferred, IV remains tw2 in place. Administered Medications: 08:04 Drug: Magnesium Sulfate 2 grams Route: IVPB; Infused Over: 2 hrs; Site: right hand; tw2 09:59 Follow up: Response: No adverse reaction; IV Status: Completed infusion; IV Intake: [id number] 08:55 Drug: Lasix (furosemide) 40 mg Route: IVP; Site: right hand; tw2 09:13 Follow up: Response: No adverse reaction tw2 Intake: 09:59 IV: 50ml; Total: 50ml. tw2 Output: 09:08 Urine: 800ml (Watkins); Total: 800ml. tw2 10:18 Urine: 900ml (Watkins); Total: 1700ml. tw2 Outcome: 08:52 ER care complete, transfer ordered by MD. mcgraw 10:19 Transferred by ground EMS to [facility]. tw2 10:19 Condition: stable 10:19 Instructed on the need for transfer. 10:19 Patient left the ED. tw2 Signatures: Dispatcher [employer] EDMS Sanjeev Moreau PA PA jr8 Shirley Sylvester, RN RN tw2 Ann Marie Tatum Tiffany tw5 Yaya Murillo RN RN sv1
--- NOTE | 2021-01-26 08:53 | EDPHYS ---
Physician Documentation [facility] Name: Harriet Perera Age: 60 yrs Sex: Female : 1960 Arrival Date: 01/26/2021 Time: 06:05 Bed 14 Private MD: ED Physician Lito Oscar HPI: 01/26 08:01 This 60 yrs old Female presents to ER via Wheelchair with complaints of High Blood jr8 Pressure, Dizziness, Fainting. 08:01 This is a 60-year-old female with a history of chronic obstructive pulmonary disease jr8 the presents to the emergency room with 24-hour history of Shortness of breath with exertion along with dizziness and the feeling of near syncope. Patient denies having similar symptoms in the past. Patient denies any recent med change, recent travel, recent sick contacts. . Historical: - Allergies: 06:14 Motrin; tw5 06:14 surgical tape; tw5 - Home Meds: 06:14 metformin 750 mg oral Tb24 [Active]; metoprolol tartrate 50 mg Oral tab 1 tab 2 times tw5 per day [Active]; lisinopril 20 mg Oral tab 1 tab once daily [Active]; gabapentin 100 mg oral cap 1 cap 3 times per day [Active]; glipizide 10 mg Oral tab 1 tab once daily [Active]; Ozempic 0.25 mg or 0.5 mg(2 mg/1.5 mL) subcutaneous pnij 0.2 mL every two weeks [Active]; Chantix 0.5 mg oral tab 1 tab 2 times per day [Active]; - PMHx: 06:14 Diabetes - NIDDM; Hypertension; tw5 - PSHx: 06:14 Cholecystectomy; tw5 - Immunization history:: Adult Immunizations up to date. - Social history:: Smoking status: Patient reports the use of cigarette tobacco products, smokes one-half pack cigarettes per day. ROS: 08:01 Eyes: Negative for injury, pain, redness, and discharge, ENT: Negative for injury, jr8 pain, and discharge, Neck: Negative for injury, pain, and swelling, Cardiovascular: Negative for chest pain, palpitations, and edema, Abdomen/GI: Negative for abdominal pain, nausea, vomiting, diarrhea, and constipation, Back: Negative for injury and pain, MS/Extremity: Negative for injury and deformity, Skin: Negative for injury, rash, and discoloration. 08:01 Respiratory: Positive for dyspnea on exertion, Negative for shortness of breath, sputum production, wheezing. 08:01 Neuro: Positive for dizziness, near syncope. Exam: 08:01 Constitutional: This is a well developed, well nourished patient who is awake, alert, jr8 and in no acute distress. Neck: Trachea midline, no thyromegaly or masses palpated, and no cervical lymphadenopathy. Supple, full range of motion without nuchal rigidity, or vertebral point tenderness. No Meningismus. 08:01 Abdomen/GI: Soft, non-tender, with normal bowel sounds. No distension or tympany. No guarding or rebound. No evidence of tenderness throughout. Skin: Warm, dry with normal turgor. Normal color with no rashes, no lesions, and no evidence of cellulitis. MS/ Extremity: Pulses equal, no cyanosis. Neurovascular intact. Full, normal range of motion. Neuro: Awake and alert, GCS 15, oriented to person, place, time, and situation. Cranial nerves II-XII grossly intact. Motor strength 5/5 in all extremities. Sensory grossly intact. 08:01 Cardiovascular: Rate: bradycardic, Rhythm: irregular, Pulses: Pulses are 2+ in right radial artery and left radial artery. Heart sounds: murmur, systolic, grade 3 over 6, Edema: is not appreciated, JVD: is not appreciated. 08:01 Respiratory: the patient does not display signs of respiratory distress, Respirations: normal, Breath sounds: are clear throughout, no bronchial sounds, no decreased breath sounds, no rales, rhonchi, no stridor, no wheezing. Vital Signs: 06:09 BP 132 / 92; Pulse 86; Resp 18; Temp 98.6; Pulse Ox 93% on R/A; Weight 136.08 kg; tw5 Height 5 ft. 6 in. (167.64 cm); Pain 0/10; 07:07 BP 130 / 63; Pulse 50; Resp 18; Pulse Ox 92% ; sv1 07:26 BP 165 / 57; Pulse 69; Resp 17; Pulse Ox 94% on R/A; tw2 08:38 BP 150 / 68; Pulse 75; Resp 17; Pulse Ox 94% on R/A; tw2 09:50 BP 158 / 97; Pulse 71; Resp 17; Pulse Ox 96% on R/A; tw2 06:09 Body Mass Index 48.42 (136.08 kg, 167.64 cm) tw5 MDM: 06:18 Patient medically screened. [facility] 08:01 Data reviewed: vital signs, nurses notes, lab test result(s), EKG, radiologic studies, jr8 plain films. Data interpreted: Pulse oximetry: on room air is 93 %. Interpretation: acceptable. Counseling: I had a detailed discussion with the patient and/or guardian regarding: the historical points, exam findings, and any diagnostic results supporting the discharge/admit diagnosis, lab results, radiology results, the need to transfer to another facility, [facility] does not immediately have the required specialist. ED course: Spoke with her occupational analyst about EKG obtained. At this time would be best to send to the [facility] in case patient needs a pacemaker.. 01/26 06:32 Order name: Basic Metabolic Panel; Complete Time: 07:50 01/26 06:32 Order name: CBC with Diff; Complete Time: 07:35 01/26 06:32 Order name: LFT's; Complete Time: 07:50 01/26 06:32 Order name: Magnesium; Complete Time: 07:50 01/26 06:32 Order name: NT PRO-BNP; Complete Time: 07:50 01/26 06:32 Order name: PT-INR; Complete Time: 07:35 01/26 06:32 Order name: Troponin (emerg Dept Use Only); Complete Time: 07:50 01/26 06:32 Order name: XRAY Chest (1 view); Complete Time: 08:45 01/26 06:32 Order name: Cardiac monitoring; Complete Time: 07:05 01/26 06:32 Order name: EKG - Nurse/Tech; Complete Time: 07:06 01/26 06:32 Order name: COVID-19 SARS RT PCR (Document "Date of Onset" if Symptomatic); Complete Time: 07:50 01/26 06:32 Order name: IV Saline Lock; Complete Time: 07:06 01/26 06:32 Order name: Labs collected and sent; Complete Time: 07:06 01/26 06:32 Order name: O2 Per Protocol; Complete Time: 07:06 8 01/26 06:32 Order name: O2 Sat Monitoring; Complete Time: 07:06 8 01/26 07:16 Order name: Watkins; Complete Time: 07:17 tw2 Administered Medications: 08:04 Drug: Magnesium Sulfate 2 grams Route: IVPB; Infused Over: 2 hrs; Site: right hand; tw2 09:59 Follow up: Response: No adverse reaction; IV Status: Completed infusion; IV Intake: [id number] 08:55 Drug: Lasix (furosemide) 40 mg Route: IVP; Site: right hand; tw2 09:13 Follow up: Response: No adverse reaction tw2 Disposition Summary: 01/26/21 08:52 Transfer Ordered Transfer Location: [facility] jr8 Reason: Higher level of care jr8 Condition: Stable jr8 Problem: new jr8 Symptoms: have improved jr8 Accepting Physician: Dr. Jon (01/26/21 10:19) tw2 Diagnosis - Bradycardia, unspecified jr8 - Other specified heart block jr8 - Acute systolic (congestive) heart failure jr8 Discharge Instructions: - Discharge Summary Sheet tw2 Forms: - Medication Reconciliation Form jr8 - SBAR form tw2 Signatures: Dispatcher [employer] EDSanjeev Chowdary PA PA jr8 Shirley Sylvester RN RN tw2 Michelle Sampson tw5 Corrections: (The following items were deleted from the chart) 10:19 08:52 Dr. Jon jr8 tw2
[2021-01-26 10:31] VITALS: TEMP 98.6
[2021-01-26 10:37] VITALS: BP 158/97; O2SAT 96
== END 2021-01-26 10:19 | disposition short-term general hospital (02) ==
LOC: ER 06:01
DX: I45.5 Other specified heart block (principal); I50.21 Acute systolic (congestive) heart failure; R00.1 Bradycardia, unspecified; E11.9 Type 2 diabetes mellitus without complications; I10 Essential (primary) hypertension; F17.210 Nicotine dependence, cigarettes, uncomplicated; Z20.822 Contact with and (suspected) exposure to COVID-19
CPT/HCPCS: 96365; 93005 ×4; 85025; 80048; 36415; 83735; 85610; 80076; 84484; 83880; 71045; 51702; 96375; 99285; 96366; U0003; J1940; J3475

== ENCOUNTER 2022-02-07 13:48 | Emergency (ER) | payer OTHER ==
[2022-02-07] MEDS ORDERED: ETOMIDATE 20 MG/10 ML VIAL IV ONE (13:49)
[2022-02-07] MEDS ORDERED: ROCURONIUM 50 MG/5 ML VIAL IV ONE ×2 (13:49→18:14)
--- OUTSIDE RECORDS SUMMARY | 2022-02-07 13:50 | XMS REPORT | Continuity of Care Document ---
:1960 Author Organization [facility] t Address [address] [place] [address] Care Team Providers Name Role Phone ARMIDA GIBSON Attending Clinician Unavailable DALY PENN Attending Clinician Unavailable GRISEL GARCIA Admitting Clinician Unavailable Payers Payer Name Policy Type Policy Number Effective Date Expiration Date Danielle SMITH [id number] 2021 00:00:00 Problems Condition Condition Condition Status Onset Resolution Last Treating Co mments Source Name Details Category Date Date Treatment Clinician Date Hypertensi Hypertensi Disease Active 2020-[address] [facility] 00 [place] Type 2 Type 2 Disease Active 2020-[address] [facility] diabetes diabetes 03-29 [facility] mellitus mellitus 00:00: Medica l 00 Center Diabetic Diabetic Disease Active 2020[facility] neuropathy [facility] 00:[facility]: [facility] 00 [place] Tobacco Tobacco Disease Active 2020-[address] [facility] abuse abuse 03-29 [facility] 00 [place] Chronic Chronic Disease Active 2020-[address] [facility] respirator respirator 03-29 [facility] y failure y failure 00:00: Medi yung with with 00 Center hypoxia hypoxia AV block AV block Disease Active 2020-02 [facility] Center Allergies, Adverse Reactions, Alerts Allergy Allergy Status Severity Reaction(s) Onset Inactive Treating Comm ents Source Name Type Date Date Clinician IBUPROFE Allergy Active Low Itching 2020-02 [facility] N-OXYCOD 2-23 ONE 00:00: 00 NO KNOWN Allergy Active [facility] Social History Social Habit Start Date Stop Date Quantity Comments Source Cigarettes smoked 2021-01-26 2021-01-[address] [facility] current (pack per 00:00:00 00:00:00 Medical Center day) - Reported Cigarette 2021-01-26 2021-01-[address] [facility] pack-years 00:00:00 00:00:00 [facility] Tobacco use and 2021-01-26 2021-01-[address] [facility] exposure 00:00:00 00:00:00 [facility] Center History of tobacco 1979-10-07 2021-01-[address] [facility] use [facility]00:00 [facility] Sex Assigned At [address] [facility] 00:00:00 00:00:00 [facility] Center Smoking Status Start Date Stop Date Source Former smoker 2021-01-26 00:00:00 2021-01-26 00:00:00 [facility] Medications Ordered Filled Start Stop Current Ordering Indication Dosage Frequency Signature Comments Components Source Medication Medication Date Date Medication? Clinician (SIG) Name Name metoprolol 2020-02 Yes 50mg Q.5D Take [address] tartrate 2-24 by mouth 2 [facility] (LOPRESSOR) 12:31: (two) Medic al 50 MG 19 times Center tablet daily. lisinopriL 2020-02 Yes 20mg QD Take [address] (PRINIVIL,Z 2-24 by mouth Luke s ESTRIL) 20 12:31: daily. Medic al MG tablet 19 Center metFORMIN 2020-02 Yes 750mg Take [address] [facility] [address] (GLUCOPHAGE 2-24 mg by [facility] -XR) 750 MG 12:31: mouth Medic al 24 hr 19 daily with Center tablet breakfast. gabapentin 2020-02 Yes 300mg Q.5D Take [address] (NEURONTIN) 2-24 mg by [facility] 100 MG 12:31: mouth 2 Medical capsule 19 (two) Center times daily . gabapentin 2020-02 Yes 200mg QD Take [address] (NEURONTIN) 2-24 mg by [facility] 100 MG 12:31: mouth Medical capsule 19 nightly. Center glipiZIDE 2020-02 Yes 10mg Take [address] (GLUCOTROL) 2-24 by mouth 2 [facility] 10 MG 12:31: (two) Medical tablet 19 times Center daily before meals. semaglutide 2020-[address] [facility] (Ozempic) 2-24 subcutaneo Luke s 0.25 mg or 12:31: usly. Medica l 0.5 mg(2 19 Center mg/1.5 mL) PnIj varenicline 2020-02 Yes .5mg Q.5D Take 0.[address] (CHANTIX) 2-24 mg by [facility] 0.5 MG 12:31: mouth 2 Medical tablet 19 (two) Center times daily Give with meals and with a full glass of water. . fluticasone 2020-02 Yes QD Inhale [address] -umeclidin- 2-24 Inhalation [facility] vilanter 12:31: by mouth Medic al (Trelegy 19 via Center Ellipta) inhaler 200-62.5-25 daily. mcg DsDv aspirin 81 2020-02 Yes 81mg QD Take [address] MG EC 2-24 by mouth [facility] tablet 12:31: daily. Medical 19 Center furosemide 2020-02- No 20mg Take [address] (LASIX) 20 2-24 12-24 tablet (20 [facility] MG tablet 00:00: 23:59 mg total) Me dical 00 :00 by mouth 2 Center (two) times daily. HYDROcodone 2020-02- No 1{tbl} Take [address] -acetaminop 2-24 -03 tablet by [facility] (NORCO 00:00: 23:59 mouth Medic al 5-325) 00 :00 every 6 Center 5-325 mg (six) per tablet hours as needed for up to 10 days. Max Daily Amount: 4 tablets Immunizations Ordered Immunization Filled Immunization Date Status Commen ts Source Name Name Covid-19 Vaccine 2021-01-[address] [facility] MRNA (PF) 12yr+ 00:00:00 Medical C enter ([employer]reezy)(IM M601) Vital Signs Vital Name Observation Time Observation Value Comments Source HEIGHT 2021-01-26 15:00:00 167.6 cm WEIGHT 2021-01-26 15:00:00 144.3 kg HEIGHT 2021-01-26 15:00:00 167.6 cm WEIGHT 2021-01-26 15:00:00 144.3 kg Procedures This patient has no known procedures. Plan of Care Planned Activity Planned Date Details Comments Source Future Scheduled 2024-01-28 Lipid panel (procedure) [facility] Test 00:00:00 [code = 78721391] Medical Ce nter Future Scheduled 2021-10-06 INFLUENZA VACCINE (#1) [facility] 00:00:00 [code = INFLUENZA Medical Ce nter VACCINE (#1)] Future Scheduled 2021-05-29 COVID-19 VACCINE (4 - [facility] Test 00:00:00 Booster for Pfizer Medical C enter series) [code = COVID-19 VACCINE (4 - Booster for Pfizer series)] Future Scheduled 2021-04-[address] [facility] Test 00:00:00 measurement (procedure) [facility] [code = 03224724] Future Scheduled 2021-02-[address] [facility] Test 00:00:00 (12+) [code = Medical Center DEPRESSION SCREENING (12+)] Future Scheduled 2012 SHINGLES VACCINES ([address] [facility] Test 00:00:00 2) [code = SHINGLES Medical Center VACCINES (1 of 2)] Future Scheduled 1983-10-03 Screening for malignant [facility] Test 00:00:00 neoplasm of cervix Medical C enter (procedure) [code = 907444636] Future Scheduled 1981 DTAP/TDAP/TD VACCINES [facility] 00:00:00 (1 - Tdap) [code = Medical C enter DTAP/TDAP/TD VACCINES (1 - Tdap)] Future Scheduled 1980 HEPATITIS C SCREENING [facility] 00:00:00 [code = HEPATITIS C Medical Center SCREENING] Future Scheduled [address] [facility] Test 00:00:00 Counseling and Medical Cente r Screening (12+) [code = Tobacco Cessation Counseling and Screening (12+)] Future Scheduled 1972 DIABETIC EYE EXAM [code [facility] 00:00:00 = DIABETIC EYE EXAM] Medical Center Future Scheduled [address] [facility] Test 00:00:00 examination Medical Center (regime/therapy) [code = 531310560] Future Scheduled 1972 Urine screening for [facility] Test 00:00:00 protein (procedure) Medical Center [code = 188643621] Future Scheduled [address] [facility] Test 00:00:00 0-64 YRS (1 - PCV) Medical C enter [code = PNEUMOCOCCAL VACCINE 0-64 YRS (1 - PCV)] Future Scheduled 1962 Screening for malignant [facility] Test 00:00:00 neoplasm of breast Medical C enter (procedure) [code = 735795488] Future Scheduled 1962 CT Colonography (combo) [facility] Test 00:00:00 [code = CT Colonography [facility] Center (combo)] Future Scheduled 1962 Screening for malignant [facility] Test 00:00:00 neoplasm of colon Medical Ce nter (procedure) [code = 793234551] Future Scheduled 1962 Screening for malignant [facility] Test 00:00:00 neoplasm of colon Medical Ce nter (procedure) [code = 101898591] Future Scheduled 1962 Screening for malignant [facility] Test 00:00:00 neoplasm of colon Medical Ce nter (procedure) [code = 697230350] Future Scheduled 1962 Screening for malignant [facility] Test 00:00:00 neoplasm of colon Medical Ce nter (procedure) [code = 587871175] Future Scheduled 1960 Sigmoidoscopy [code = [facility] 00:[facility]:00 Sigmoidoscopy] Medical Cente r Encounters Start End Encounter Admission Attending Care Care Encounter Source Date/Time Date/Time Type Type Clinicians Facility Department ID 2021-01-26 2021-01-28 Inpatient ER PUMA PENN Cardiology 2 [id number] [facility] 11:30:00 10:48:00 DALY 2021-01-27 2021-01-27 Outpatient [facility] [id number] [facility] 00:00:00 23[facility]59:00 [facility] 2021-01-26 2021-01-26 Outpatient [facility] [id number] [facility] 11:30:00 23:59:00 [facility] Results Test Description Test Time Test Comments Results Result Comments Source MISCELLANEOUS LAB ORDER 2021-02-03 09:26:42 Test Item Value Reference Range Interpretation Comme nts SCAN RESULT (test code = 4657029) POCT-GLUCOSE [id number] 12:32:49 Test Item Value Reference Range Interpretation Comments POC-GLUCOSE METER 139 mg/dL 70-110 H : TESTED A T [facility] 6720 (BEAKER) (test code = [facility], 1538) 36643: Engineering Surveyor/Techni roseline ID = [id number] for Desi Cox POCT-GLUCOSE [id number] 08:13:43 Test Item Value Reference Range Interpretation Comments POC-GLUCOSE METER 171 mg/dL 70-110 H : TESTED A T [facility] 6720 (BEAKER) (test code = [facility], 1538) 50086: Engineering Surveyor/Techni roseline ID = [id number] for ARA MAZA POCT-GLUCOSE [id number] 17:39:20 Test Item Value Reference Range Interpretation Comments POC-GLUCOSE METER 251 mg/dL 70-110 H : TESTED A T [facility] 6720 ([employer]) (test code = [facility], 1538) 41505: Engineering Surveyor/Techni roseline ID = [id number] for Sa ntos, Nallely RAD, CHEST, 1 VIEW, NON [id number] 15:39:00Reason for exam:->pacemaker implantShould this be performed at the bedside?->[facility] 1960 Sex: FFINAL REPORT TECHNIQUE: Frontal view of the chest. INDICATION: pacemaker implant COMPARISON: None. FINDINGS: LINES/TUBES: There is a left subclavian approach pacer device.. LUNGS: There are increased interstitial opacities in the bilateral lungs.. No focal consolidation.. PLEURA: No pneumothorax or significant pleural effusion. HEART AND MEDIASTINUM: The cardiomediastinal silhouetteis enlarged. SOFT TISSUES AND BONES: Unremarkable. IMPRESSION:Status post placement of left subclavian approach pacer device. No pneumothorax Cardiomegaly with Pulmonary edema. No significant pleural effusion.. Signed: Macy [place] MDReport Verified Date/Time: 01/27/2021 15:39:28 Reading Location: [address] Consult Reading Room POCT-GLUCOSE [id number] 10:00:32 Test Item Value Reference Range Interpretation Comments POC-GLUCOSE METER 137 mg/dL 70-110 H : TESTED A T [facility] 6720 (BEAKER) (test code = [facility] [place], 1538) 055[address]: Engineering Surveyor/Techni roseline ID = [id number] for [place] Fry [id number] 08:10:27 Test Item Value Reference Range Interpretation Comments PHOSPHORUS (BEAKER) (test code = 4.9 mg/dL 2.3-4.7 H 604) Engineering Surveyor ID - BETTIE MLIPID [id number] 08:10:27 Test Item Value Reference Range Interpretation Comments TRIGLYCERIDES (BEAKER) (test code = 146 mg/dL 540) CHOLESTEROL (BEAKER) (test code = 122 mg/dL 631) HDL CHOLESTEROL (BEAKER) (test code 37 mg/dL = 976) LDL CHOLESTEROL CALCULATED (BEAKER) 56 mg/dL (test code = 633) Triglyceride Reference Range: Low Risk <150 Borderline 150-199 High Risk 200- 499 Very High Risk >=500Cholesterol Reference Range: Low Risk <200 Borderline 200-239 High Risk >240HDL Cholesterol Reference Range: Low Risk >=60 High Risk <40LDL Cholesterol Reference Range: Optimal <100 Near Optimal 100-129 Borderline 130-159 High 160-189 Very High >=190 Engineering Surveyor ID - BETTIE [id number] 08:10:26 Test Item Value Reference Range Interpretation Comments MAGNESIUM (BEAKER) (test code = 1.5 mg/dL 1.6-2.6 L 627) Engineering Surveyor ID - BETTIE MBASIC METABOLIC [id number] 08:10:25 Test Item Value Reference Range Interpretation Comments SODIUM (BEAKER) 139 meq/L 136-145 (test code = 381) POTASSIUM (BEAKER) 3.6 meq/L 3.5-5.1 (test code = 379) CHLORIDE (BEAKER) 102 meq/L 98-107 (test code = 382) CO2 (BEAKER) (test 25 meq/L 22-29 code = 355) BLOOD UREA NITROGEN 14 mg/dL 7-21 (BEAKER) (test code = 354) CREATININE (BEAKER) 0.77 mg/dL 0.57-1.25 (test code = 358) GLUCOSE RANDOM 132 mg/dL 70-105 H (BEAKER) (test code = 652) CALCIUM (BEAKER) 9.0 mg/dL 8.4-10.2 (test code = 697) EGFR (BEAKER) (test 77 mL/min/1.73 ESTIMA MICHELLE GFR IS code = 1092) sq m NOT ACCURATE CREATININE CLEARANCE IN PREDICTING GLOMERULAR FILTRATION RATE . ESTIMATED GFR I S NOT APPLICABLE FOR DIALYSIS PATIEN TS. Engineering Surveyor ID - BETTIE MPROTHROMBIN [id number] 04:58:03 Test Item Value Reference Range Interpretation Comments PROTIME (BEAKER) 14.6 seconds 11.9-14.2 H (test code = 759) INR (BEAKER) (test 1.16 See_Comment [Automat ed message] code = 370) The system [employer] generated this result transmitted ref erence range: <=5.90. The reference range was not used to int erpret this result as normal/abnormal . RECOMMENDED COUMADIN/WARFARIN INR THERAPY RANGESSTANDARD DOSE: 2.0 - 3.0 Includes: PROPHYLAXIS for venous thrombosis, systemic embolization; TREATMENT for venous thrombosis and/or pulmonary embolus.HIGH RISK: Target INR is 2.5-3.5 for patients with mechanical heart valves.CBC W/PLT COUNT & AUTO [id number] 04:49:23 Test Item Value Reference Range Interpretation Comments WHITE BLOOD CELL COUNT (BEAKER) 8.8 K/ L 3.5-10.5 (test code = 775) RED BLOOD CELL COUNT (BEAKER) 4.21 M/ L 3.93-5.22 (test code = 761) HEMOGLOBIN (BEAKER) (test code = 11.8 GM/DL 11.2-15.7 410) HEMATOCRIT (BEAKER) (test code = 38.7 % 34.1-44.9 411) MEAN CORPUSCULAR VOLUME (BEAKER) 91.9 fL 79.4-94.8 (test code = 753) MEAN CORPUSCULAR HEMOGLOBIN 28.0 pg 25.6-32.2 (BEAKER) (test code = 751) MEAN CORPUSCULAR HEMOGLOBIN CONC 30.5 GM/DL 32.2-35.5 L (BEAKER) (test code = 752) RED CELL DISTRIBUTION WIDTH 14.9 % 11.7-14.4 H (BEAKER) (test code = 412) PLATELET COUNT (BEAKER) (test 199 K/CU MM 150-450 code = 756) MEAN PLATELET VOLUME (BEAKER) 11.8 fL 9.4-12.3 (test code = 754) NUCLEATED RED BLOOD CELLS 0 /100 WBC 0-0 (BEAKER) (test code = 413) NEUTROPHILS RELATIVE PERCENT 64 % (BEAKER) (test code = 429) LYMPHOCYTES RELATIVE PERCENT 26 % (BEAKER) (test code = 430) MONOCYTES RELATIVE PERCENT 9 % (BEAKER) (test code = 431) EOSINOPHILS RELATIVE PERCENT 2 % (BEAKER) (test code = 432) BASOPHILS RELATIVE PERCENT 0 % (BEAKER) (test code = 437) NEUTROPHILS ABSOLUTE COUNT 5.56 K/ L 1.56-6.13 (BEAKER) (test code = 670) LYMPHOCYTES ABSOLUTE COUNT 2.23 K/ L 1.18-3.74 (BEAKER) (test code = 414) MONOCYTES ABSOLUTE COUNT (BEAKER) 0.75 K/ L 0.24-0.36 H (test code = 415) EOSINOPHILS ABSOLUTE COUNT 0.15 K/ L 0.04-0.36 (BEAKER) (test code = 416) BASOPHILS ABSOLUTE COUNT (BEAKER) 0.02 K/ L 0.01-0.08 (test code = 417) IMMATURE GRANULOCYTES-RELATIVE 1 % 0-1 PERCENT (BEAKER) (test code = 2801) SARS-COV2/RT-PCR ([facility])2021-01-26 22:45:28 Test Item Value Reference Range Interpretation Comments SARS-COV2/RT-PCR (test Negative Not Detected, Negative, code = 9708596) See external report for linked test SARS-COV-2 PERFORMING LAB [facility] (test code = 4506961) Negative result for this test determines that SARS-CoV-2 RNA was not present in the specimen above the Limit of Detection (LOD). However, Negative results do not preclude SARS-CoV-2 infection and should not be used as the sole basis for treatment or patient management decisions. Negative results must be combined with clinical observations, patient history, and epidemiological information. A false negative result may occur if a specimen is improperly collected, transported or handled. A false negative result should be considered if patient's recent exposures or clinical presentation indicate that COVID-19 (SARS-CoV-2) is likely and diagnostic tests for other causes of illness are negative. Re-testing should be considered in cases of suspected false negatives.The limit of detection for this assay is 800 copies/mL.This SARS CoV-2 test is a real-time RT-PCR test intended for the qualitative detection of nucleic acid from SARS-CoV-2 in a nasopharyngeal swab specimen collected from individuals suspected of COVID-19 by their healthcare provider.This test has not been Food and Drug Administration (FDA) cleared or approved. This is a modified version of an approved Emergency Use Authorization (EUA) and is in the process of review by the FDA. Once authorized by the FDA, the issued EUA will be effective until the declaration that circumstances exist justifying the authorization of the emergency use ofin vitro diagnostic tests for detection and/or diagnosis of COVID-19 is terminated under Section 564(b)(2) of the Act or the EUA is revoked under Section 564(g) of the Act.Fact Sheet for Healthcare Prov iders:https://www.[employer]/sites/default/files/product/documents/Fact_Sheet_HC _Runlppohf_Phor_SYIO-OjV-9.pdfFact Sheet for Healthcare Patients:https://www.[employer]/sites/default/files/product/docume nts/Owys_Briys_Ptgoagaw_Syrm_JPSF-HcO-9.pdfPerforming Laboratory:[place] [address], [place] [address]VQHI-JJDREVR METER 2021-01-26 21:59:27 Test Item Value Reference Range Interpretation Comments POC-GLUCOSE METER 153 mg/dL 70-110 H : [facility] (BEAKER) (test code = [facility], 1538) 23606: Engineering Surveyor/Techni roseline ID = [id number] for MADHURI CRISTINA HEMOGLOBIN [id number] 21:33:53 Test Item Value Reference Range Interpretation Comments HEMOGLOBIN A1C (BEAKER) (test code = 10.3 % 4.3-6.1 H 368) TSH/FREE T4 IF [id number] 18:15:41 Test Item Value Reference Range Interpretation Comments THYROID STIMULATING HORMONE 0.816 uIU/mL 0.350-4.940 (BEAKER) (test code = 772) Engineering Surveyor ID - [id number] 17:57:59 Test Item Value Reference Range Interpretation Comments MAGNESIUM (BEAKER) (test code = 1.5 mg/dL 1.6-2.6 L 627) Engineering Surveyor ID - [id number] 17:57:59 Test Item Value Reference Range Interpretation Comments PHOSPHORUS (BEAKER) (test code = 3.1 mg/dL 2.3-4.7 604) Engineering Surveyor ID - BSBASIC METABOLIC [id number] 17:57:58 Test Item Value Reference Range Interpretation Comments SODIUM (BEAKER) 141 meq/L 136-145 (test code = 381) POTASSIUM (BEAKER) 4.1 meq/L 3.5-5.1 (test code = 379) CHLORIDE (BEAKER) 101 meq/L 98-107 (test code = 382) CO2 (BEAKER) (test 29 meq/L 22-29 code = 355) BLOOD UREA NITROGEN 15 mg/dL 7-21 (BEAKER) (test code = 354) CREATININE (BEAKER) 0.84 mg/dL 0.57-1.25 (test code = 358) GLUCOSE RANDOM 213 mg/dL 70-105 H (BEAKER) (test code = 652) CALCIUM (BEAKER) 9.4 mg/dL 8.4-10.2 (test code = 697) EGFR (BEAKER) (test 70 mL/min/1.73 ESTIMA MICHELLE GFR IS code = 1092) sq m NOT ACCURATE CREATININE CLEARANCE IN PREDICTING GLOMERULAR FILTRATION RATE . ESTIMATED GFR I S NOT APPLICABLE FOR DIALYSIS PATIEN TS. Engineering Surveyor ID - BSPOCT-GLUCOSE [id number] 17:44:45 Test Item Value Reference Range Interpretation Comments POC-GLUCOSE METER 199 mg/dL 70-110 H : Notified RN/MD: (WAQAS) (test code = TESTED AT [facility] [id number]) [facility], [address]: Engineering Surveyor/Techni roseline ID = [id number] for GABI MYLES
[2022-02-07] MEDS ORDERED: METHYLPREDNISOLONE 125 MG INJ ONE (14:42)
[2022-02-07] MEDS ORDERED: IPRATROPIUM BROM 0.5MG/2.5ML ONE (14:43)
[2022-02-07] MEDS ORDERED: ALBUTEROL 2.5 MG/3 ML NEB SOL ONE (14:43)
[2022-02-07 15:27] LABS: Albumin 3.3 g/dL (3.4-5.0); Bilirubin Total 0.3 mg/dL (0.2-1.0); Protein, Total 8.7 g/dL (6.4-8.2)
--- NOTE | 2022-02-07 15:27 | RAD REPORT ---
EXAM DESCRIPTION: RAD - Chest Single View - 02/07/2022 3:21 pm CLINICAL HISTORY: COPD COMPARISON: Chest Single View dated 01/26/2021; Chest Pa And Lat (2 Views) dated 08/18/2020; Chest Si ngle View dated 07/11/2017; Chest Single View dated 07/10/2017 FINDINGS: Lines: None. Lungs: Diffuse bilateral hazy opacities. Pleural: Small effusions difficult to exclude. Cardiac: Cardiomegaly. Pacemaker. Mediastinum: Within normal limits. Bones: No acute fractures. Other: None IMPRESSION: Moderate pulmonary edema.
[2022-02-07 15:28] LABS: Potassium 5.2 mmol/L (3.5-5.1)
[2022-02-07 15:29] LABS: Absolute Lymphocytes (CBC) 1.2 K/uL (0.7-4.9); Hematocrit 43.2 % (36.0-45.0); Lymphocytes % 8.6 % (15.3-44.8); MCV 88.9 fL (80-100); RBC Red Blood Cell Count 4.86 M/uL (3.86-4.86)
[2022-02-07 15:40] LABS: Troponin High Sensitivity 113.6 pg/mL (<58.9)
--- NOTE | 2022-02-07 16:22 | ER ---
Nurse's Notes [facility] Name: Harriet Perera Age: 61 yrs Sex: Female : 1960 Arrival Date: 02/07/2022 Time: 14:26 Bed 3 Private MD: Diagnosis: Respiratory failure, CHF Presentation: 02/07 14:46 Chief complaint: EMS states: clients left to the grocery store at about 9am kc6 this morning, she wwas connected to her home O2. returned at about 11:30am, O2 was no longer connected, client was 80%. FSBS 173 en route. Coronavirus screen: Vaccine status: Patient reports receiving the 2nd dose of the covid vaccine. Ebola Screen: No symptoms or risks identified at this time. Initial Sepsis Screen: Does the patient meet any 2 criteria? No. Patient's initial sepsis screen is negative. Does the patient have a suspected source of infection? No. Patient's initial sepsis screen is negative. Risk Assessment: Do you want to hurt yourself or someone else? Patient reports no desire to harm self or others. Onset of symptoms was February 07, 2022. 14:46 Method Of Arrival: EMS: [facility] kc6 14:46 Acuity: CHRIS 2 kc6 Triage Assessment: 14:50 General: Appears distressed, obese, Behavior is unresponsive. Pain: Denies pain. EENT: kc6 No signs and/or symptoms were reported regarding the EENT system. Neuro: [place] Agitation-Sedation Scale (RASS): -1 Drowsy Level of Consciousness is unresponsive, Oriented to person, place. Cardiovascular: Heart tones S1 S2 present Capillary refill < 3 seconds. Respiratory: Airway is patent Trachea midline Respiratory effort is even, unlabored, Respiratory pattern is regular, symmetrical, Breath sounds with crackles bilaterally. GI: No signs and/or symptoms were reported involving the gastrointestinal system. : No signs and/or symptoms were reported regarding the genitourinary system. Derm: No signs and/or symptoms reported regarding the dermatologic system. Skin is intact, Skin is pink, warm \T\ dry. Musculoskeletal: No signs and/or symptoms reported regarding the musculoskeletal system. Circulation, motion, and sensation intact. Capillary refill < 3 seconds, Range of motion: intact in all extremities. Historical: - Allergies: 14:49 Motrin; kc6 14:49 surgical tape; kc6 - Home Meds: 14:49 glipizide 10 mg Oral tab 1 tab once daily [Active]; metoprolol tartrate 50 mg Oral tab kc6 1 tab 2 times per day [Active]; Chantix 0.5 mg Oral tab 1 tab 2 times per day [Active]; gabapentin 100 mg Oral cap 1 cap 3 times per day [Active]; lisinopril 20 mg Oral tab 1 tab once daily [Active]; metformin 750 mg Oral Tb24 [Active]; Ozempic 0.25 mg or 0.5 mg(2 mg/1.5 mL) subcutaneous pnij 0.2 mL every two weeks [Active]; - PMHx: 14:49 Diabetes - NIDDM; Hypertension; Congestive heart failure; Chronic obstructive lung 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 - Social history:: Smoking status: Patient reports the use of cigarette tobacco products, smokes one pack cigarettes per day. - Unable to obtain history due to: altered mental status. Screenin:54 [facility] ED Fall Risk Assessment (Adult) History of falling in the last 3 months, kc6 including since admission No falls in past 3 months (0 pts) Confusion or Disorientation Yes (5 pts) Intoxicated or Sedated No (0 pts) Impaired Gait No (0 pts) Mobility Assist Device Used No (0 pt) Altered Elimination No (0 pt) Score/Fall Risk Level 3 or more points = High Risk Oriented to surroundings, Maintained a safe environment, Educated pt \T\ family on fall prevention, incl call for assistance when getting out of bed, Assessed \T\ reinforced patient's understanding of fall precautions, Provided non-skid footwear, Hourly rounding (assess needs \T\ fall precautionary measures) done, Used ambulatory aids as needed (educated on \T\ assisted with), Used gait belt as appropriate Implemented a Fall Risk Plan of Care, Apply high fall risk patient identification: yellow non skid footwear/ fall signage, Placed fall mat w/ non beveled edge next to bed, Activated bed/chair alarm, Remained w/in arm's length of patient and in sight while toileting, Offered frequent toileting (1:1 observation), Remained with patient while ambulating, Utilized family, sitter, or virtual hog feeder as indicated. Abuse screen: Denies threats or abuse. Denies injuries from another. Nutritional screening: No deficits noted. Tuberculosis screening: No symptoms or risk factors identified. Assessment: 14:53 Reassessment: please see triage assessment. [facility] 15:46 Reassessment: Patient appears in no apparent distress at this time. No changes from [facility] previously documented assessment. Patient and/or family updated on plan of care and expected duration. Pain level reassessed. Patient is alert, oriented x 3, equal unlabored respirations, skin warm/dry/pink. Patient denies pain at this time. 16:46 Reassessment: Patient appears in no apparent distress at this time. No changes from [facility] previously documented assessment. Patient and/or family updated on plan of care and expected duration. Pain level reassessed. Patient is alert, oriented x 3, equal unlabored respirations, skin warm/dry/pink. Patient denies pain at this time. 17:46 Reassessment: Patient appears in no apparent distress at this time. No changes from [facility] previously documented assessment. Patient and/or family updated on plan of care and expected duration. Pain level reassessed. Patient is alert, oriented x 3, equal unlabored respirations, skin warm/dry/pink. Patient denies pain at this time. 18:32 Reassessment: Indra Perera () [phone]. [facility] 18:46 Reassessment: Patient appears in no apparent distress at this time. No changes from [facility] previously documented assessment. Patient and/or family updated on plan of care and expected duration. Pain level reassessed. Patient is alert, oriented x 3, equal unlabored respirations, skin warm/dry/pink. Patient denies pain at this time. 19:31 General: Appears in no apparent distress. obese. Respiratory: Ventilator assessment: ET kl Tube: 7.5 23 cm at lip. HOB > 30 degrees. Suction provided. Color of output clear Breath sounds are diminished bilaterally. 20:47 Cardiovascular: Edema is 3+ to left midcalf, left ankle, left foot, left toes, right kl midcalf, right ankle, right foot and right toes. 20:51 Respiratory: Ventilator assessment: Ventilator Mode: Assist Control (AC) Tidal Volume: kl 400 Respiratory Rate: 20 FiO2: 65 PEEP: 5. 21:53 Respiratory: Ventilator assessment: Tidal Volume: 600 PEEP: 8 Oral care provided. kl 23:04 Reassessment: Patient appears in no apparent distress at this time. Patient and/or kl family updated on plan of care and expected duration. Pain level reassessed. Patient is alert, oriented x 3, equal unlabored respirations, skin warm/dry/pink. Patient states symptoms have improved. Vital Signs: 14:46 BP 137 / 77; Pulse 84; Resp 22 S; Temp 97.8(O); Pulse Ox 96% on Non-rebreather mask; kc6 Weight 158.76 kg (R); Height 5 ft. 8 in. (172.72 cm) (R); Pain 0/10; 15:33 BP 148 / 78; Pulse 86; Resp 22 S; Pulse Ox 97% on BiPAP; kc6 16:33 BP 119 / 93; Pulse 90; Resp 17 S; Pulse Ox 100% on BiPAP; Pain 0/10; kc6 17:56 BP 113 / 63; Pulse 86; Resp 19 S; Pulse Ox 94% on BiPAP; Pain 0/10; kc6 18:33 BP 111 / 65; Pulse 85; Resp 19 S; Pulse Ox 95% on BiPAP; kc6 18:45 BP 155 / 80; Pulse 98; Resp 24 S; Pulse Ox 95% on BiPAP; kc6 19:32 BP 165 / 104; Pulse 93; Resp 20; Pulse Ox 96% on 60% FiO2 ETT vent; kl 20:37 Weight 144.24 kg (M); kl 20:50 BP 178 / 95; Pulse 82; Resp 28; Pulse Ox 95% on 65% FiO2 ETT vent; kl 22:25 BP 143 / 83; Pulse 92; Resp 20; Pulse Ox 97% on 80% FiO2 ETT vent; jb4 23:03 BP 139 / 63; Pulse 84; Resp 20; Temp 98.2(TE); Pulse Ox 96% on 80% FiO2 ETT vent; kl 20:37 Body Mass Index 48.35 (144.24 kg, 172.72 cm) ED Course: 14:26 Patient arrived in ED. vg1 14:27 James Gallego MD is Attending Physician. rt 14:36 Perera, Jayshree, RN is Primary Nurse. kc6 14:49 Triage completed. kc6 14:57 Arm band placed on. kc6 14:57 Patient has correct armband on for positive identification. Placed in gown. Bed in low kc6 position. Call light in reach. Side rails up X2. Adult w/ patient. 15:22 Chest Single View XRAY In Process Unspecified. EDMS 16:20 Natanael Rodriguez MD is Hospitalizing Provider. rt 17:18 pure-wick in place. kc6 18:13 initiated transfer to [facility]. bd 18:15 pt denied at [facility] due to all hospitals being at capacity. bd 18:19 initiated transfer to [facility]. bd 18:59 Assisted provider with intubation using 7.5 mm ETT via oral route. ET tube secured at kc6 23cm at the teeth. Set up intubation tray. Intubated by James Gallego MD Placement verified by CO2 detector w/ + color change, auscultating bilateral breath sounds, Patient tolerated well. 19:07 pt denied at [facility]. bd 19:12 Attending Physician role handed off by James Gallego MD sp3 19:12 Jacek Medina MD is Attending Physician. sp3 19:24 [facility] denied the patient. mw2 19:31 Inserted saline lock: 20 gauge in right upper arm, using aseptic technique. kl 19:33 initiated a transfer with Rosanne Osuna from [facility]. They need the mw2 patients abdominal girth. 19:56 patient has an abdominal girth of 30 inches. mw2 19:57 called [facility] spoke with Rosanne to give her the patient's abdominal mw2 girth and covid result. 19:58 CXR XRAY In Process Unspecified. EDMS 20:18 Lactate w/ 2H reflex if indic. Sent. kl 21:13 NGT: inserted 18 Fr. via left nare. verified placement of air over stomach, verified kl return of gastric contents, to intermittent suction. Returned gastric contents. Patient tolerated well. 21:[address] Medina with the Doctor from [facility]. mw2 22:06 administrative approval given by Rosanne Osuna/ patient has been accepted to [address] to CCU 2 bed 13/ Dr. Garcia accepted the patient in transfer/report to be called to [phone]. 23:05 Patient transferred, IV remains in place. kl Administered Medications: 14:46 Drug: DuoNeb (albuterol 2.5 mg, ipratropium 0.5 mg) (3:1) (2.5 mg - 0.5 mg) 3 ml Route: kc6 Nebulizer; 16:49 Follow up: Response: No adverse reaction kc6 14:59 Drug: SOLU-Medrol (methylPrednisoLONE) 125 mg Route: IVP; Site: right upper arm; kc6 16:50 Follow up: Response: No adverse reaction kc6 16:49 Drug: Lasix (furosemide) 40 mg Route: IVP; Site: right antecubital; kc6 17:49 Follow up: Response: No adverse reaction kc6 18:56 Drug: Etomidate 20 mg Route: IVP; Site: right antecubital; kc6 18:58 Drug: Rocuronium 150 mg Route: IVP; Site: right antecubital; kc6 20:34 Drug: Propofol 0.5 mg/kg Route: IVP; Site: right upper arm; kl 20:34 Drug: Propofol 30 mg {Note: BP 168/93.} Route: IVP; Site: right upper arm; kl Medication: 18:33 VIS not applicable for this client. kc6 Outcome: 16:21 Decision to Hospitalize by Provider. rt 21:52 ER care complete, transfer ordered by . sp3 23:04 Transferred by ground EMS to [facility], Transfer form completed. kl X-rays sent w/ patient. 23:04 Condition: improved 23:04 Discharge instructions given to family, Instructed on the need for transfer, Demonstrated understanding of instructions. 23:35 Patient left the ED. Signatures: Dispatcher [employer] EDMS Nia Gong Kimberly, RN RN kl Bryson, James, RN RN [id number] Gay Wilkes mw2 Kayleen Alvares RN RN vg1 Jacek Medina MD MD sp3 Jayshree Perera RN RN kc6 James Gallego MD MD rt
--- NOTE | 2022-02-07 16:22 | EDPHYS ---
Physician Documentation [facility] Name: Harriet Perera Age: 61 yrs Sex: Female : 1960 Arrival Date: 02/07/2022 Time: 14:26 Bed 3 Private MD: ED Physician Jacek Medina HPI: 02/07 15:20 This 61 yrs old Female presents to ER via EMS with complaints of shortness of breath, rt AMS. 15:20 The patient has shortness of breath at rest. Onset: The symptoms/episode began/occurred rt at an unknown time. Duration: The symptoms are continuous. The patient's shortness of breath has no apparent modifying factors. Associated signs and symptoms: Pertinent positives: AMS, Pertinent negatives: chest pain. Severity of symptoms: At their worst the symptoms were severe. Unable to obtain HPI due to altered mental status. History limited due to patient with altered mental status. Patient reportedly chronically wears per 4.5 mL of oxygen, with a normal sat of about 90%. The patient reportedly removed the oxygen, went down to about 70%, patient was found to be very altered at that time. EMS started the patient on 15 L by nonrebreather as the patient was only satting about 80% on her usual dose. History otherwise limited due to patient with altered mental status. Symptoms are severe in severity, no other reported aggravating or alleviating factors.. Historical: - Allergies: 14:49 Motrin; kc6 14:49 surgical tape; kc6 - Home Meds: 14:49 glipizide 10 mg Oral tab 1 tab once daily [Active]; metoprolol tartrate 50 mg Oral tab kc6 1 tab 2 times per day [Active]; Chantix 0.5 mg Oral tab 1 tab 2 times per day [Active]; gabapentin 100 mg Oral cap 1 cap 3 times per day [Active]; lisinopril 20 mg Oral tab 1 tab once daily [Active]; metformin 750 mg Oral Tb24 [Active]; Ozempic 0.25 mg or 0.5 mg(2 mg/1.5 mL) subcutaneous pnij 0.2 mL every two weeks [Active]; - PMHx: 14:49 Diabetes - NIDDM; Hypertension; Congestive heart failure; Chronic obstructive lung 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 - Social history:: Smoking status: Patient reports the use of cigarette tobacco products, smokes one pack cigarettes per day. - Unable to obtain history due to: altered mental status. ROS: 15:20 Unable to obtain ROS due to altered mental status. rt Exam: 15:20 Head/Face: Normocephalic, atraumatic. Eyes: Pupils equal round and reactive to light, rt extra-ocular motions intact. Lids and lashes normal. Conjunctiva and sclera are non-icteric and not injected. Cornea within normal limits. Periorbital areas with no swelling, redness, or edema. ENT: Nares patent. No nasal discharge, no septal abnormalities noted. Tympanic membranes are normal and external auditory canals are clear. Oropharynx with no redness, swelling, or masses, exudates, or evidence of obstruction, uvula midline. Mucous membranes moist. Neck: Trachea midline, no thyromegaly or masses palpated, and no cervical lymphadenopathy. Supple, full range of motion without nuchal rigidity, or vertebral point tenderness. No Meningismus. Chest/axilla: Normal chest wall appearance and motion. Nontender with no deformity. No lesions are appreciated. Cardiovascular: Regular rate and rhythm with a normal S1 and S2. No gallops, murmurs, or rubs. Normal PMI, no JVD. No pulse deficits. Abdomen/GI: Soft, non-tender, with normal bowel sounds. No distension or tympany. No guarding or rebound. No evidence of tenderness throughout. Skin: Warm, dry with normal turgor. Normal color with no rashes, no lesions, and no evidence of cellulitis. MS/ Extremity: Pulses equal, no cyanosis. Neurovascular intact. Full, normal range of motion. 15:20 Constitutional: The patient appears Somnolent, mild respiratory distress 15:20 ECG was reviewed by the Attending Physician. 15:20 Respiratory: Wheezes and diminished breath sounds heard in all lung verma, mild to moderate respiratory distress. 15:20 Neuro: Confused, responsive to verbal stimuli, moves all 4 extremities equally.. 15:20 Psych: not assessable. Vital Signs: 14:46 BP 137 / 77; Pulse 84; Resp 22 S; Temp 97.8(O); Pulse Ox 96% on Non-rebreather mask; kc6 Weight 158.76 kg (R); Height 5 ft. 8 in. (172.72 cm) (R); Pain 0/10; 15:33 BP 148 / 78; Pulse 86; Resp 22 S; Pulse Ox 97% on BiPAP; kc6 16:33 BP 119 / 93; Pulse 90; Resp 17 S; Pulse Ox 100% on BiPAP; Pain 0/10; kc6 17:56 BP 113 / 63; Pulse 86; Resp 19 S; Pulse Ox 94% on BiPAP; Pain 0/10; kc6 18:33 BP 111 / 65; Pulse 85; Resp 19 S; Pulse Ox 95% on BiPAP; kc6 18:45 BP 155 / 80; Pulse 98; Resp 24 S; Pulse Ox 95% on BiPAP; kc6 19:32 BP 165 / 104; Pulse 93; Resp 20; Pulse Ox 96% on 60% FiO2 ETT vent; kl 20:37 Weight 144.24 kg (M); kl 20:50 BP 178 / 95; Pulse 82; Resp 28; Pulse Ox 95% on 65% FiO2 ETT vent; kl 22:25 BP 143 / 83; Pulse 92; Resp 20; Pulse Ox 97% on 80% FiO2 ETT vent; jb4 23:03 BP 139 / 63; Pulse 84; Resp 20; Temp 98.2(TE); Pulse Ox 96% on 80% FiO2 ETT vent; kl 20:37 Body Mass Index 48.35 (144.24 kg, 172.72 cm) Procedures: 19:07 Intubation: Intubated orally using glidescope with 7.5 mm ETT. was successful on first rt attempt. Ventilated with Ambu bag. Tube secured with ETT simpson Placement verified by CXR, CO2 detector with (+) color change, auscultating bilateral breath sounds, Patient tolerated well. MDM: 14:29 Patient medically screened. rt 16:30 Differential diagnosis: Bronchitis CHF exacerbation, Chronic Obstructive Pulmonary rt Disease pulmonary edema, Pulmonary Embolism Unstable Angina. Data reviewed: vital signs, nurses notes, lab test result(s), EKG, radiologic studies. ED course: Patient presents to the ED with dyspnea, altered mental status. Patient found to be hypoxemic and hypercarbic, started on BiPAP. Patient was with pulmonary edema, elevated troponin, BNP. Suspect combination of COPD exacerbation with concomitant pulmonary edema. Patient with increasing creatinine over baseline, will give dose of diuretics. Patient to be admitted for further care.. 20:10 ED course: Patient signed out to me by daytime physician. 61-year-old female with COPD sp3 and CHF now respiratory failure with a primary respiratory acidosis and and also likely mild lactic acidosis. Lactate is pending which I added on. Patient was intubated right at shift change and chest x-ray postintubation demonstrates proper positioning of the ET tube 2 cm above the tamara. Repeat blood gases also pending. We are still attempting to find ICU bed placement for this patient and will manage and monitor her in the meantime. Patient is sedated on propofol adequately with blood pressure in the 180/100 range and heart rate 94 regular in nature.. 02/07 14:30 Order name: CBC with Diff; Complete Time: 16:05 rt 02/07 14:30 Order name: CMP; Complete Time: 16:05 rt 02/07 14:30 Order name: Troponin High Sensitivity; Complete Time: 16:05 rt 02/07 14:30 Order name: BNP; Complete Time: 16:05 rt 02/07 14:30 Order name: ABG; Complete Time: 17:01 rt 02/07 17:07 Order name: ABG rt 02/07 14:30 Order name: Chest Single View XRAY; Complete Time: 16:05 rt 02/07 14:30 Order name: BIPAP rt 02/07 17:53 Order name: SARS-COV-2 Antigen Rapid; Complete Time: 20:04 bd 02/07 19:34 Order name: CXR XRAY; Complete Time: 21:27 sp3 02/07 20:05 Order name: Lactate w/ 2H reflex if indic.; Complete Time: 21:27 sp3 02/07 20:05 Order name: ABG sp3 EC:20 Rate is 87 beats/min. Rhythm is regular, Normal Sinus Rhythm with No ectopy, Right rt bundle branch block. SC interval is normal. QT interval is normal. No Q waves. Interpreted by me. Administered Medications: 14:46 Drug: DuoNeb (albuterol 2.5 mg, ipratropium 0.5 mg) (3:1) (2.5 mg - 0.5 mg) 3 ml Route: kc6 Nebulizer; 16:49 Follow up: Response: No adverse reaction kc6 14:59 Drug: SOLU-Medrol (methylPrednisoLONE) 125 mg Route: IVP; Site: right upper arm; kc6 16:50 Follow up: Response: No adverse reaction kc6 16:49 Drug: Lasix (furosemide) 40 mg Route: IVP; Site: right antecubital; kc6 17:49 Follow up: Response: No adverse reaction kc6 18:56 Drug: Etomidate 20 mg Route: IVP; Site: right antecubital; kc6 18:58 Drug: Rocuronium 150 mg Route: IVP; Site: right antecubital; kc6 20:34 Drug: Propofol 0.5 mg/kg Route: IVP; Site: right upper arm; kl 20:34 Drug: Propofol 30 mg {Note: BP 168/93.} Route: IVP; Site: right upper arm; kl Disposition: 16:30 Critical Care:. rt Disposition Summary: 02/07/22 21:52 Transfer Ordered Transfer Location: [facility] sp3 Reason: Higher level of care sp3 Condition: Critical(02/07/22 21:52) sp3 Problem: an acute exacerbation(02/07/22 21:52) sp3 Symptoms: have worsened(02/07/22 21:52) sp3 Accepting Physician: Dr. Monroe at [facility](02/07/22 23:35) Diagnosis - Respiratory failure, CHF sp3 Forms: - Medication Reconciliation Form sp3 - SBAR form sp3 Critical care time excluding procedures: 16:30 Critical care time: Bedside Care: 30 minutes, Consultation: 5 minutes. Total time: 35 rt minutes Signatures: Dispatcher [employer] Anna Garcia, HOUSE CALLS NURSE-C HOUSE CALLS NURSE-CkSima Bonilla RN RN Jacek Ruiz MD MD sp3 Jayshree Perera RN RN [id number] James Gallego MD MD rt Corrections: (The following items were deleted from the chart) 19:07 16:21 Inpatient Admission rt rt 19: 16:21 Natanael Rodriguez rt rt 19: 16:21 Telemetry/MedSurg (Inpatient) rt rt 19: 16:21 Fair rt rt 19: 16:21 an acute exacerbation rt rt 19: 16:21 have improved rt rt 19:07 16:21 Standard rt rt 16:21 rt rt 16:21 Acute respiratory failure with hypercapnia rt rt 16:21 Acute respiratory failure with hypoxia rt rt 16:21 Acute kidney failure, unspecified rt rt 23:35 21:[address] [facility] sp3 kl
[2022-02-07] MEDS ORDERED: FUROSEMIDE 40 MG/4 ML VIAL ONE (16:44)
[2022-02-07 16:57] LABS: Arterial Blood Carboxyhemoglob 2.1 % (0-1.5); Blood Gas Oxyhemoglobin 88.1 % (94-97); Blood O2 Saturation 91.2 % (92-98.5)
[2022-02-07] MEDS ORDERED: RSI MEDICATION KIT IV ONE (18:14)
[2022-02-07 19:41] LABS: SARS-CoV-2 Antigen Rapid Res Negative (Negative)
--- NOTE | 2022-02-07 20:18 | RAD REPORT ---
EXAM DESCRIPTION: RAD - Chest Single View - 02/07/2022 7:56 pm CLINICAL HISTORY: Post intubation COMPARISON: Chest Single View dated 02/07/2022; Chest Single View dated 01/26/2021; Chest Pa And Lat ( 2 Views) dated 08/18/2020; Chest Single View dated 07/11/2017 FINDINGS: Lines: Endotracheal tube at the aortic arch. Pacemaker. Lungs: Similar pulmonary edema. Lung volumes are modestly improved. Pleural: No significant pleural effusions or pneumothorax. Cardiac: Cardiomegaly. Mediastinum: Within normal limits. Bones: No acute fractures. Other: None IMPRESSION: Endotracheal tube in satisfactory position at the aortic arch. Pulmonary edema. Mild imp roved lung volumes.
[2022-02-07] MEDS ORDERED: propofoL 1,000 MG/100 ML VIAL IV ONE ×2 (20:31→23:02)
[2022-02-07 23:00] LABS: Arterial Blood Carboxyhemoglob 1.7 % (0-1.5); Blood Gas Oxyhemoglobin 87.3 % (94-97); Blood O2 Saturation 89.9 % (92-98.5)
[2022-02-08 00:19] VITALS: BP 139/63; TEMP 98.2; O2SAT 96
--- NOTE | 2022-02-08 16:04 | EKG ---
Test Date: 2022-02-07 Test Time: 15:01:35 [employer]: [employer]AB[employer] MEASUREMENT RESULTS: Intervals: Rate: 87 MS: 204 QRSD: 166 QT: 412 QTc: 495 [place]: P: 54 MS: 204 QRS: 102 T: -48 INTERPRETIVE STATEMENTS: Normal sinus rhythm Right bundle branch block T wave abnormality, consider inferolateral ischemia Abnormal ECG Compared to ECG 01/26/2021 06:57:06 Ventricular premature complex(es) no longer present Myocardial infarct finding no longer present T-wave abnormality still present Possible ischemia still present Electronically Signed On 02-08-22 16:03:39 MEDICAL OFFICE TECHNICIAN by James Peña
== END 2022-02-07 23:35 | disposition short-term general hospital (02) ==
LOC: ER 13:48
DX: J96.90 Respiratory failure, unspecified, unspecified whether with hypoxia or hypercapnia (principal); I50.9 Heart failure, unspecified; R41.82 Altered mental status, unspecified; J44.9 Chronic obstructive pulmonary disease, unspecified; E11.9 Type 2 diabetes mellitus without complications; I10 Essential (primary) hypertension; F17.210 Nicotine dependence, cigarettes, uncomplicated; Z20.822 Contact with and (suspected) exposure to COVID-19; Z88.6 Allergy status to analgesic agent; Z91.048 Other nonmedicinal substance allergy status
CPT/HCPCS: 93005; 85025; 36415; 83605; 84484; 80053; 83880; 71045 ×2; 94002; 94640; 82805 ×2; 94660; 94003; 31500; 99291; 99292; 87811; J1940; J2704 ×2; J7613; J7644; J2930

== ENCOUNTER 2022-02-15 14:09 | Inpatient (IN) | payer OTHER ==
--- OUTSIDE RECORDS SUMMARY | 2022-02-15 14:18 | XMS REPORT | Continuity of Care Document ---
:1960 Author Organization [facility] t Address [address] [place] [address] Care Team Providers Name Role Phone Samm Monroe MD Attending Clinician Patricia Cardoso MD Attending Clinician [phone] Zeinab Nova MD Attending Clinician Rhea Interiano MD Attending Clinician [phone] RHEA INTERIANO Attending Clinician Unavailable SAMM MONROE Attending Clinician Unavailable DALY PENN Attending Clinician Unavailable ARMIDA GIBSON Attending Clinician Unavailable SAMM MONROE Admitting Clinician Unavailable GRISEL GARCIA Admitting Clinician Unavailable Payers Payer Name Policy Type Policy Number Effective Date Expiration Date S ource Problems Condition Condition Condition Status Onset Resolution Last Treating Co mments Source Name Details Category Date Date Treatment Clinician Date Respirator Respirator Disease Active [facility] failure y failure 1- [facility] 00:[facility]: [facility] 00 [place] AV block AV block Disease [facility] 2020-[facility] Hypertensi Hypertensi Disease Active 2020-[address] on on 03-29 [facility] 00:[facility]: [facility] 00 [place] Type 2 Type 2 Disease Active 2020-[address] [facility] diabetes diabetes 03-29 [facility] mellitus mellitus 00:00: Medica l 00 Center Diabetic Diabetic Disease Active 2020-02 [facility] neuropathy neuropathy 03-29 [facility] 00:[facility]: Medical 00 Center Tobacco Tobacco Disease Active 2020-[address] [facility] abuse abuse 2[facility] 00 Center Chronic Chronic Disease Active 2020-[address] respirator respirator - [facility] y failure y failure 00:00: Medi yung with with 00 Center hypoxia hypoxia Allergies, Adverse Reactions, Alerts Allergy Allergy Status Severity Reaction(s) Onset Inactive Treating Comm ents Source Name Type Date Date Clinician Adhesive Propensi Active Anaphylaxis [facility] Tape ty to 02-08 [facility] adverse 00:00: Medical reaction 00 Center s Ibuprofe Propensi Active Anaphylaxis [facility] n ty to 02-08 [facility] adverse 00:00: Medical reaction 00 Center s ADHESIVE Allergy Active High Anaphylaxis [facility] TAPE 02-08 [facility] 00:[facility]: Medical 00 [place] IBUPROFE Allergy Active High Anaphylaxis [facility] N 02-08 [facility] 00:[facility]: Medical 00 [place] IBUPROFE Allergy Active Low Itching 2020-02 [facility] N-OXYCOD 03-30 ONE 00:00: 00 NO KNOWN Allergy Active [facility] Social History Social Habit Start Date Stop Date Quantity Comments Source History SDOH [facility] Alcohol Std Drinks Medica l Center History SDOH [facility] Alcohol Binge Medical Alix ter History SDOH [facility] Alcohol Comment Medical C enter Exposure to 2022-01-31 2022-02-[address] [facility] SARS-CoV-2 (event) 00:00:00 13:06:00 Medica l [place] Alcohol intake 2022-02-10 2022-02-[address] [facility] 00:[facility]:00 00:00:00 non-drinker Medical Cente r (finding) History SDOH 2022-02-10 2022-02-[address] [facility] Alcohol Frequency 00:00:00 00:00:00 [facility] Cigarettes smoked 2021-01-26 2021-01-[address] [facility] current (pack per 00:00:00 00:00:00 Medical Center day) - Reported Cigarette 2021-01-26 2021-01-[address] [facility] pack-years 00:00:00 00:00:00 [facility] Tobacco use and 2021-01-26 2021-01-[address] [facility] exposure 00:00:00 00:00:00 Medical Center History of tobacco 1979-10-07 2021-01-[address] [facility] use 00:00:00 00:00:00 [facility] Sex Assigned At [address] Nina kejese 00:00:00 00:00:00 [facility] Smoking Status Start Date Stop Date Source Former smoker 2021-01-26 00:00:00 2021-01-26 00:00:00 [facility] Medications Ordered Filled Start Stop Current Ordering Indication Dosage Frequency Signature Comments Components Source Medication Medication Date Date Medication? Clinician (SIG) Name Name lisinopriL Yes 20mg QD Take 1 [facility] (PRINIVIL,Z -09 tablet (20 [facility] ESTRIL) 20 00:00: mg total) Me dical MG tablet 00 by mouth Center daily. empaglifloz 2022-0 2024- Yes 10mg QD Take [address] in 02-12 tablet (10 [facility] (JARDIANCE) 00:00: 23:59 mg total) Medical 10 mg 00 :00 by mouth Center tablet daily. levoFLOXaci 2022-0 2023- Yes 750mg Q24H Take [address] [facility] 02-12 tablet [facility] (LEVAQUIN) 00:00: 23:59 (750 mg Med ical 750 MG 00 :00 total) by Center tablet mouth daily for 4 days. levoFLOXaci 2022-0 2023- No 750mg Q24H Take [address] [facility] 02-12 tablet [facility] (LEVAQUIN) 00:00: 00:00 (750 mg Med ical 750 MG 00 :00 total) by Center tablet mouth daily for 4 days. empaglifloz 2022-0 2023- No 10mg QD Take [address] in 02-12 tablet (10 [facility] (JARDIANCE) 00:00: 00:00 mg total) Medical 10 mg 00 :00 by mouth Center tablet daily. metFORMIN 2022-0 Yes 750mg Take [address] [facility] (GLUCOPHAGE 1-07 mg by [facility] -XR) 750 MG 13:02: mouth Medic al 24 hr 58 daily with Center tablet breakfast. gabapentin 2022-0 Yes 300mg Q.5D Take [address] (NEURONTIN) 1-07 mg by [facility] 100 MG 13:02: mouth 2 Medical capsule 58 (two) Center times daily . gabapentin 0 Yes 200mg QD Take [address] (NEURONTIN) 1-07 mg by [facility] 100 MG 13:02: mouth Medical capsule 58 nightly. Center glipiZIDE 0 Yes 10mg Take [address] (GLUCOTROL) 1-07 by mouth 2 [facility] 10 MG 13:02: (two) Medical tablet 58 times Center daily before meals. semaglutide [address] [facility] (Ozempic) -07 subcutaneo Luke [facility] 0.25 mg or 13:02: usly. Medica l 0.5 mg(2 58 Center mg/1.5 mL) PnIj fluticasone 0 Yes QD Inhale [address] -umeclidin- 1-07 Inhalation [facility] vilanter 13:02: by mouth Medic al (Trelegy 58 via Center Ellipta) inhaler 200-62.5-25 daily. mcg DsDv aspirin 81 0 Yes 81mg QD Take [address] MG EC -07 by mouth [facility] tablet 13:02: daily. Medical 58 Center metoprolol 0 2022- No 50mg Q.5D Take [address] tartrate 02-11- by mouth 2 [facility] (LOPRESSOR) 12:02: 00:00 (two) Medi yung 50 MG 17 :00 times Center tablet daily. lisinopriL 0 2022- No 20mg QD Take [address] (PRINIVIL,Z 02-11- by mouth Matt es ESTRIL) 20 12:02: 00:00 daily. Medi yung MG tablet 17 :00 Center varenicline 0 2022- No .5mg Q.5D Take 0.[address] (CHANTIX) 02-11-07 mg by [facility] 0.5 MG 11:54: 00:00 mouth 2 Medical tablet 16 :00 (two) Center times daily Give with meals and with a full glass of water. . metoprolol 0 Yes 25mg Q.5D Take 0.[address] tartrate 1-07 tablets [facility] (LOPRESSOR) 00:00: (25 mg Medi yung 50 MG 00 total) by Center tablet mouth 2 (two) times daily. torsemide 2023- Yes 40mg QD Take 2 [facility] (DEMADEX) 02-11 tablets [facility] 20 MG 00:00: 23:59 (40 mg Medical tablet 00 :00 total) by Center mouth daily. potassium 2023- Yes 20meq QD Take [address] chloride SA 02-11 tablet (20 [facility] (K-DUR,KLOR 00:00: 23:59 mEq total) Medical -CON-M) 20 00 :00 by mouth Cente r MEQ tablet daily. torsemide 2022- No 40mg QD Take 2 [facility] (DEMADEX) 02-11 tablets [facility] 20 MG 00:00: 00:00 (40 mg Medical tablet 00 :00 total) by Center mouth daily. potassium 2022- No 20meq QD Take [address] chloride SA 02-11 tablet (20 [facility] (K-DUR,KLOR 00:00: 00:00 mEq total) Medical -CON-M) 20 00 :00 by mouth Cente r MEQ tablet daily. atorvastati Yes 10mg QD Take [address] n (LIPITOR) 1-02 by mouth Luke s 10 MG 00:00: daily. Medical tablet 00 Center metoprolol 2020-02 Yes 50mg Q.5D Take 50 [...] [facility] -umeclidin- 2-24 Inhalation [facility]ger vilanter 12:31: by mouth Medic al (Trelegy 19 via Center [facility]) inhaler 200-62.5-25 daily. mcg DsDv aspirin 81 2020-02 Yes 81mg QD Take [address] MG EC 2-24 by mouth [facility] tablet 12:31: daily. Medical 19 Center furosemide 2020-02- No 20mg Take [address] [facility] (LASIX) 20 2-24 12-24 tablet (20 [facility] MG tablet 00:00: 23:59 mg total) Me dical 00 :00 by mouth 2 Center (two) times daily. furosemide 2020-02- No 20mg Take [address] (LASIX) 20 2-24 12-24 tablet (20 [facility] MG tablet 00:00: 23:59 mg total) Me dical 00 :00 by mouth 2 Center (two) times daily. HYDROcodone 2020-02- No 1{tbl} Take [address] -acetaminop 2-24 01-03 tablet by Kelle soares hen (NORCO 00:00: 23:59 mouth Medic al 5-325) 00 :00 every 6 Center 5-325 mg (six) per tablet hours as needed for up to 10 days. Max Daily Amount: 4 tablets Immunizations Ordered Immunization Filled Immunization Date Status Commen ts Source Name Name Covid-19 Vaccine 2021-01-[address] [facility] MRNA (PF) 12yr+ 00:00:00 Medical C enter (Pfizer/BioNTech)(IM M601) Covid-19 Vaccine 2021-01-[address] [facility] MRNA (PF) 12yr+ 00:00:00 Medical C enter (Pfizer/BioNTech)(IM M601) Vital Signs Vital Name Observation Time Observation Value Comments Source HEIGHT 2022-02-10 08:20:00 167.6 cm WEIGHT 2022-02-09 08:50:00 137.848 kg WEIGHT 2022-02-08 01:00:00 145 kg HEIGHT 2022-02-10 08:20:00 167.6 cm WEIGHT 2022-02-09 08:50:00 137.848 kg WEIGHT 2022-02-08 01:00:00 145 kg HEIGHT 2022-02-10 08:20:00 167.6 cm WEIGHT 2022-02-09 08:50:00 137.848 kg WEIGHT 2022-02-08 01:00:00 145 kg HEIGHT 2021-01-26 15:00:00 167.6 cm WEIGHT 2021-01-26 15:00:00 144.3 kg HEIGHT 2021-01-26 15:00:00 167.6 cm WEIGHT 2021-01-26 15:00:00 144.3 kg Systolic blood 2022-02-11 11:59:00 96 mm[Hg] [facility] Diastolic blood 2022-02-11 11:59:00 63 mm[Hg] [facility] Heart rate 2022-02-11 11:59:00 95 /min [facility] Body temperature 2022-02-11 11:59:00 36.22 [facility] Respiratory rate 2022-02-11 11:59:00 18 /min [facility] Oxygen saturation 2022-02-11 11:59:00 99 /min [facility] in Arterial blood Medical nter by Pulse oximetry Body height 2022-02-10 08:20:00 167.6 cm 167.6 cm (5' [facility] 6") as of Medical Center 01/26/2021 Body weight 2022-02-09 08:50:00 137.848 kg [facility] BMI 2022-02-09 08:50:00 49.05 kg/m2 [facility] Procedures Procedure Date / Time Performed Performing Clinician Sour e POCT-GLUCOSE METER 2022-02-11 11:57:[address] [facility] POCT-GLUCOSE METER 2022-02-11 06:25:00 Zeinab Nova [facility] CBC W/PLT COUNT & AUTO 2022-02-11 06:11:00 [facility] CBC W/PLT COUNT & AUTO 2022-02-11 06:11:00 Regi Longoria [facility] BASIC METABOLIC PANEL 2022-02-11 03:56:[address] [facility] MAGNESIUM 2022-02-11 03:56:[address] [facility] CALCIUM, IONIZED 2022-02-11 03:56:[address] [facility] PHOSPHORUS 2022-02-11 03:56:00 [facility] MAGNESIUM 2022-02-10 21:01:00 Rosario, [facility] BLOOD GAS, VENOUS 2022-02-10 21:01:00 Kiko Roberto [facility] BASIC METABOLIC PANEL 2022-02-10 21:01:[address] [facility] BASIC METABOLIC PANEL 2022-02-10 12:19:[address] [facility] MAGNESIUM 2022-02-10 12:19:[address] [facility] POCT-GLUCOSE METER 2022-02-10 11:19:00 Zeinab Nova [facility] POCT-GLUCOSE METER 2022-02-10 08:51:00 Merchant, [facility] POCT-GLUCOSE METER 2022-02-10 05:44:00 Merchant [facility] CBC W/PLT COUNT & AUTO 2022-02-10 04:21:00 Von Regi Magdaleno [facility] BASIC METABOLIC PANEL 2022-02-10 04:21:00 Rosario, Sdmargoth [facility] MAGNESIUM 2022-02-10 04:21:00 [facility] CALCIUM, IONIZED 2022-02-10 04:21:[address] [facility] PHOSPHORUS 2022-02-10 04:21:00 [facility] CBC W/PLT COUNT & AUTO 2022-02-10 04:21:00 Rosario, [facility] BLOOD GAS, VENOUS 2022-02-10 04:21:00 AdhKiko barnhart [facility] POCT-GLUCOSE METER 2022-02-10 00:10:00 Eufemiahanjarrell [facility] BLOOD GAS, VENOUS 2022-02-09 21:19:00 AdhKiko barnhart [facility] BASIC METABOLIC PANEL 2022-02-09 21:19:00 Rosario, Sdmargoth [facility] MAGNESIUM 2022-02-09 21:19:00 [facility] CALCIUM, IONIZED 2022-02-09 21:19:00 Madhuri Aguirre [facility] POCT-GLUCOSE METER 2022-02-09 19:33:00 [facility] POCT-GLUCOSE METER 2022-02-09 12:08:00 Samm Monroe [facility] BASIC METABOLIC PANEL 2022-02-09 10:22:00 Rosario Sdmargoth [facility] MAGNESIUM 2022-02-09 10:22:00 Rosario Kymargoth [facility] PROCALCITONIN 2022-02-09 10:22:00 Gisselle Whitehead [facility] XR CHEST 1 VIEW PORTABLE 2022-02-09 08:16:00 RosarioJosé Miguelericka CALVIN I [facility] / BEDSIDE [facility] ECG 12-LEAD 2022-02-09 07:44:27 Unknown, Hl7 Doctor [facility] ECG 12-LEAD 2022-02-09 07:44:05 Unknown, Hl7 Doctor [facility] ECG 12-LEAD 2022-02-09 07:44:05 Unknown, Hl7 Doctor [facility] BLOOD GAS, VENOUS 2022-02-09 06:51:00 Abril Doll [facility] POCT-GLUCOSE METER 2022-02-09 05:46:00 Samm Monroe [facility] CBC W/PLT COUNT & AUTO 2022-02-09 04:12:00 Regi Longoria [facility] BASIC METABOLIC PANEL 2022-02-09 04:12:00 Rosario Sdmargoth [facility] MAGNESIUM 2022-02-09 04:12:[address] [facility] CALCIUM, IONIZED 2022-02-09 04:12:00 Rosario [facility] PHOSPHORUS 2022-02-09 04:12:00 [facility] CBC W/PLT COUNT & AUTO 2022-02-09 04:12:00 [facility] BLOOD GAS, VENOUS 2022-02-09 04:12:00 AdhiKiko [facility] POCT-GLUCOSE METER 2022-02-08 23:48:00 Samm Monroe [facility] BLOOD GAS, VENOUS 2022-02-08 20:34:00 Adhi, Kiko Cannonrees [facility] BASIC METABOLIC PANEL 2022-02-08 20:34:00 Rosario Sdkvngericka [facility] MAGNESIUM 2022-02-08 20:34:00 [place] Kymargoth [facility] POCT-GLUCOSE METER 2022-02-08 20:11:00 Samm Monroe [facility] HIGH SENSITIVITY TROPONIN 2022-02-08 15:32:00 Regi Longoria [facility] BLOOD GAS, VENOUS 2022-02-08 15:32[facility]00 [facility] 2D ECHO W/ DOPPLER 2022-02-08 15:30:00 Adhobey Kiko Abrams [facility] (CW[facility]PW[facility]COLOR[facility] PACEMAKER CHECK 2022-02-08 11:59:28 Michelle Dotson [facility] HIGH SENSITIVITY TROPONIN 2022-02-08 11:18:00 [facility] BASIC METABOLIC PANEL 2022-02-08 11:18:00 [facility] MAGNESIUM 2022-02-08 11:18:00 [facility] BLOOD GAS, VENOUS 2022-02-08 11:18:00 Candis Leigh [facility] SPUTUM CULTURE + GRAM 2022-02-08 09:51:00 [facility] STAIN [facility] XR ABDOMEN/KUB 1 VIEW 2022-02-08 08:42:[address] [facility] BLOOD GAS, VENOUS 2022-02-08 08:01:00 Adhobey, Kiko Abrams [facility] POCT-GLUCOSE METER 2022-02-08 06:00:00 Samm Monroe [place] [facility] MRSA SCREEN 2022-02-08 04:40:00 [facility] APTT 2022-02-08 04:40:00 [facility] URINALYSIS WITH 2022-02-08 04:21:00 [facility] MICROSCOPIC IF INDICATED [facility] HIGH SENSITIVITY TROPONIN 2022-02-08 03:48:00 [facility] BLOOD CULTURE 2022-02-08 03:44:00 [facility] POCT-GLUCOSE METER 2022-02-08 02:22:00 Samm Monroe [facility] BLOOD CULTURE 2022-02-08 01:58:00 [facility] BLOOD CULTURE 2022-02-08 01:56:00 [facility] ECG 12-LEAD 2022-02-08 01:53:38 Unknown, Hl7 [facility] ECG 12-LEAD 2022-02-08 01:53:38 Unknown, 7 [facility] PROTHROMBIN TIME/INR 2022-02-08 01:52:00 [facility] CBC W/PLT COUNT & AUTO 2022-02-08 01:51:00 [facility] BASIC METABOLIC PANEL 2022-02-08 01:51:00 [facility] HEPATIC FUNCTION PANEL 2022-02-08 01:51:[address] [facility] MAGNESIUM 2022-02-08 01:51:00 [facility] PHOSPHORUS 2022-02-08 01:51:00 [facility] TSH/FREE T4 IF INDICATED 2022-02-08 01:51:00 [facility] HIGH SENSITIVITY TROPONIN 2022-02-08 01:51:00 [facility] B-TYPE NATRIURETIC FACTOR 2022-02-08 01:51:00 [facility] (BNP) [facility] C-REACTIVE PROTEIN 2022-02-08 01:51:[address] [facility] CBC W/PLT COUNT & AUTO 2022-02-08 01:51:00 [facility] LACTIC ACID, VENOUS 2022-02-08 01:51:[address] [facility] [address] [facility] T4, FREE 2022-02-08 01:51:[address] [facility] BLOOD GAS, VENOUS 2022-02-08 01:34:[address] [facility] [address] [facility] XR CHEST 1 VIEW PORTABLE 2022-02-08 00:57:[address] [facility] / BEDSIDE [facility] EKG-SCANNED 2022-02-08 00:00:[address] [facility] [address] [facility] Plan of Care Planned Activity Planned Date Details Comments Source Future Scheduled 2024-01-28 Lipid panel (procedure) [facility] Test 00:00:00 [code = 75900166] Medical Ce nter Future Scheduled 2024-01-28 Lipid panel (procedure) [facility] 00:00:00 [code = 95717756] Medical Ce nter Future Scheduled 2023-02-[address] [facility] Test 00:00:00 Counseling and Medical Cente r Screening (12+) [code = Tobacco Cessation Counseling and Screening (12+)] Future Scheduled 2022-02-[address] [facility] Test 00:00:00 (12+) [code = Medical Center DEPRESSION SCREENING (12+)] Future Scheduled 2021-10-06 INFLUENZA VACCINE (#1) [facility] 00:00:00 [code = INFLUENZA Medical Ce nter VACCINE (#1)] Future Scheduled 2021-10-06 INFLUENZA VACCINE (#1) [facility] 00:00:00 [code = INFLUENZA Medical Ce nter VACCINE (#1)] Future Scheduled 2021-05-29 COVID-19 VACCINE (4 [facility] 00:00:00 Booster for Pfizer Medical C enter series) [code = COVID-19 VACCINE (4 - Booster for Pfizer series)] Future Scheduled 2021-05-29 COVID-19 VACCINE (4 - [facility] Test 00:00:00 Booster for Pfizer Medical C enter series) [code = COVID-19 VACCINE (4 - Booster for Pfizer series)] Future Scheduled 2021-04-[address] [facility] Test 00:00:00 measurement (procedure) [facility] [code = 55653270] Future Scheduled 2021-04-[address] [facility] Test 00:00:00 measurement (procedure) [facility] [code = 12340357] Future Scheduled 2021-02-[address] [facility] Test 00:00:00 (12+) [code = Medical Center DEPRESSION SCREENING (12+)] Future Scheduled 2012 SHINGLES VACCINES ([address] [facility] Test 00:00:00 2) [code = SHINGLES Medical Center VACCINES (1 of 2)] Future Scheduled 2012 SHINGLES VACCINES ([address] [facility] Test 00:00:00 2) [code = SHINGLES [facility] VACCINES (1 of 2)] Future Scheduled 1983-10-03 Screening for malignant [facility] Test 00:00:00 neoplasm of cervix Medical C enter (procedure) [code = 331198356] Future Scheduled 1983-10-03 Screening for malignant [facility] Test 00:00:00 neoplasm of cervix Medical C enter (procedure) [code = 921693712] Future Scheduled 1981 DTAP/TDAP/TD VACCINES [facility] 00:00:00 (1 - Tdap) [code = Medical C enter DTAP/TDAP/TD VACCINES (1 - Tdap)] Future Scheduled 1981 DTAP/TDAP/TD VACCINES [facility] 00:00:00 (1 - Tdap) [code = Medical C enter DTAP/TDAP/TD VACCINES (1 - Tdap)] Future Scheduled 1980 HEPATITIS C [facility]CRE[facility]ING [facility] 00:00:00 [code = HEPATITIS C Medical Center SCREENING] Future Scheduled 1980 HEPATITIS C SCREENING CH [...] 00:00:00 examination Medical Center (regime/therapy) [code = 052580319] Future Scheduled 1972 Urine screening for [facility] 00:00:00 protein (procedure) Medical Center [code = 281458063] Future Scheduled 1972 DIABETIC EYE EXAM [code [facility] 00:00:00 = DIABETIC EYE EXAM] Medical Center Future Scheduled [address] [facility] 00:00:00 [facility] (regime/therapy) [code = 398134536] Future Scheduled 1972 Urine screening for [facility] 00:00:00 protein (procedure) Medical [place] [code = 190969870] Future Scheduled [address] [facility] Test 00:00:00 0-64 YRS (1 - PCV) Medical C enter [code = PNEUMOCOCCAL VACCINE 0-64 YRS (1 - PCV)] Future Scheduled [address] [facility] Test 00:00:00 0-64 YRS (1 - PCV) Medical C enter [code = PNEUMOCOCCAL VACCINE 0-64 YRS (1 - PCV)] Future Scheduled 1962 Screening for malignant [facility] Test 00:00:00 neoplasm of breast Medical C enter (procedure) [code = 931145060] Future Scheduled 1962 CT Colonography (combo) [facility] Test 00:00:00 [code = CT Colonography [facility] (combo)] Future Scheduled 1962 Screening for malignant [facility] Test 00:00:00 neoplasm of colon Medical Ce nter (procedure) [code = 091815996] Future Scheduled 1962 Screening for malignant [facility] Test 00:00:00 neoplasm of colon Medical Ce nter (procedure) [code = 768729391] Future Scheduled 1962 Screening for malignant [facility] 00:00:00 neoplasm of colon Medical Ce nter (procedure) [code = 900344070] Future Scheduled 1962 Screening for malignant [facility] 00:00:00 neoplasm of colon Medical Ce nter (procedure) [code = 562134042] Future Scheduled 1960 Sigmoidoscopy [code = [facility] Screening for malignant [facility] 00:00:00 neoplasm of breast Medical C enter (procedure) [code = 882856794] Future Scheduled 1962 CT Colonography (combo) [facility] 00:00:00 [code = CT Colonography [facility] (combo)] Future Scheduled 1962 Screening for malignant [facility] 00:00:00 neoplasm of colon Medical Ce nter (procedure) [code = 313943233] Future Scheduled 1962 Screening for malignant [facility] Test 00:00:00 neoplasm of colon Medical Ce nter (procedure) [code = 519187187] Future Scheduled 1962 Screening for malignant [facility] 00:00:00 neoplasm of colon Medical Ce nter (procedure) [code = 408086763] Future Scheduled 1962 Screening for malignant [facility] Test 00:00:00 neoplasm of colon Medical Ce nter (procedure) [code = 657475124] Future Scheduled 1960 Sigmoidoscopy [code = [facility] End Encounter Admission Attending Care Care Encounter Source Date/Time Date/Time Type Type Clinicians Facility Department ID 2022-02-08 2022-02-11 [facility] [id number] [facility] 00:[facility]00 13:02:00 Encounter Patricia Cardoso [facility] 2022-02-08 2022-02-11 Inpatient ER [facility] [id number] [facility] 00:32:00 13:02:00 RHEA 2022-02-10 2022-02-10 Travel [facility] [id number] [facility] 00[facility]00:00 [facility] 2022-02-08 2022-02-08 Orders [facility] [id number] 00:00:00 00:00:00 Only [facility] 2021-01-26 2021-01-28 Inpatient ER FILI [facility] Cardiology 2 [id number] [facility] 11:30:00 10:48:00 DALY 2021-01-27 2021-01-27 Outpatient [facility] [id number] [facility] 00:00:00 23:59:00 [facility] 2021-01-26 2021-01-26 Outpatient [facility] [id number] [facility] 11:30:00 23:59:00 [facility] Results Test Description Test Time Test Comments Results Result Comments Source BLOOD CULTURE 2022-02-13 06:00:55 Test Item Value Reference Range Interpretation Comme nts CULTURE (BEAKER) (test code = 1095) No growth in 5 days The specimen volume collected for this blood culture was below the optimum (10 mL per bottle or 20 mL total). Use of lower volumes may adversely affect recovery and/or detection times of some organisms.BLOOD [id number] 03:00:47 Test Item Value Reference Range Interpretation Comments CULTURE (BEAKER) (test No growth in 5 days code = 1095) BLOOD [id number] 03:00:47 Test Item Value Reference Range Interpretation Comments CULTURE (BEAKER) (test No growth in 5 days code = 1095) POC-Glucose [id number] 12:09:16 Test Item Value Reference Range Interpretation Comments POC-Glucose Meter (test 235 mg/dL 70-110 H : TE STED AT [facility] code = 1538) [address] [facility] [place], [address]: Instructor Of Spanish/Techni roseline ID = [id number] for STEVAN PALMER Lab Interpretation (test Abnormal code = 74062-2) [facility] [id number] 12:09:16 Test Item Value Reference Range Interpretation Comments POC-GLUCOSE METER 235 mg/dL 70-110 H : TESTED A T [facility] 6720 (BEAKER) (test code = [facility] [employer], 1538) [address]: Instructor Of Spanish/Techni roseline ID = [id number] for STEVAN GLASGOW SPUTUM CULTURE + GRAM [id number] 10:55:56 Test Item Value Reference Range Interpretation Comments CULTURE (BEAKER) (test PSEUDOMONAS A 1+ Ps eudomonas code = 1095) AERUGINOSA aeruginosa Amikacin (test code = See_Comment S [Auto mated 1) message] The system which generated this result transmitted reference range : Susceptible 0-1 6 , Resistant <0 or >16 . The reference range was not used to interpret this result as normal/abnormal . Aztreonam (test code = See_Comment S [Aut omated 32) message] The system which generated this result transmitted reference range : Susceptible 0-8 , Resistant <0 or >8 . The reference range was not used to interpret this result as normal/abnormal . Cefepime (test code = See_Comment S [Auto mated 51) message] The system which generated this result transmitted reference range : Susceptible 0-8 , Resistant <0 or >8 . The reference range was not used to interpret this result as normal/abnormal . Ceftazidime (test code See_Comment S [Aut omated = 27) message] The system which generated this result transmitted reference range : Susceptible 0-8 , Resistant <0 or >8 . The reference range was not used to interpret this result as normal/abnormal . Ciprofloxacin (test See_Comment S [Automa citlali code = 7) message] The system which generated this result transmitted reference range : Susceptible 0-0.5 , Resistant <0 or >.5 . The reference range was not used to interpret this result as normal/abnormal . Doripenem (test code = See_Comment S [Aut omated 100) message] The system which generated this result transmitted reference range : Susceptible 0-2 , Resistant <0 or >2 . The reference range was not used to interpret this result as normal/abnormal . Gentamicin (test code See_Comment S [Auto mated = 18) message] The system which generated this result transmitted reference range : Susceptible 0-4 , Resistant <0 or >4 . The reference range was not used to interpret this result as normal/abnormal . Imipenem (test code = See_Comment S [Auto mated 19) message] The system which generated this result transmitted reference range : Susceptible 0-2 , Resistant <0 or >2 . The reference range was not used to interpret this result as normal/abnormal . Levofloxacin (test See_Comment R [Automat ed code = 22) message] The system which generated this result transmitted reference range : Susceptible 0-1 , Resistant <0 or >1 . The reference range was not used to interpret this result as normal/abnormal . Meropenem (test code = See_Comment S [Aut omated 34) message] The system which generated this result transmitted reference range : Susceptible 0-2 , Resistant <0 or >2 . The reference range was not used to interpret this result as normal/abnormal . Piperacillin (test See_Comment S [Automat ed code = 24) message] The system which generated this result transmitted reference range : Susceptible 0-1 6 , Resistant <0 or >16 . The reference range was not used to interpret this result as normal/abnormal . Piperacillin + See_Comment S [Automated Tazobactam (test code messag e] The = 29) system which generated this result transmitted reference range : Susceptible 0-1 6 , Resistant <0 or >16 . The reference range was not used to interpret this result as normal/abnormal . CULTURE (BEAKER) (test CITROBACTER A <1+ C itrobacter code = 1095) KOSERI koseri Amikacin (test code = S 1) Aztreonam (test code = S 32) Cefepime (test code = S 51) Cefoxitin (test code = S 68) Ceftazidime (test code S = 27) Ceftriaxone (test code S = 52) Ertapenem (test code = S 38) Gentamicin (test code S = 18) Levofloxacin (test S code = 22) Meropenem (test code = S 34) Nitrofurantoin (test S code = 23) Piperacillin + S Tazobactam (test code = 29) Tetracycline (test S code = 2) Tobramycin (test code S = 25) Trimethoprim + S Sulfamethoxazole (test code = 47) GRAM STAIN RESULT 1+ WBCs (BEAKER) (test code = 1123) GRAM STAIN RESULT <1+ gram positive (BEAKER) (test code = rods 628867) GRAM STAIN RESULT 1+ gram positive (BEAKER) (test code = cocci in chains, 943334) pairs and clusters 1+ Normal respiratory malcolm [place]ERT[place] W/PLT COUNT & AUTO DIFFERENTIAL 2022-02-11 07:52:01 Test Item Value Reference Range Interpretation Comments WHITE BLOOD CELL COUNT (BEAKER) 13.0 K/ L 3.5-10.5 H (test code = 775) RED BLOOD CELL COUNT (BEAKER) 5.36 M/ L 3.93-5.22 H (test code = 761) HEMOGLOBIN (BEAKER) (test code = 14.3 GM/DL 11.2-15.7 410) HEMATOCRIT (BEAKER) (test code = 47.5 % 34.1-44.9 H 411) MEAN CORPUSCULAR VOLUME (BEAKER) 89 fL 79-95 (test code = 753) MEAN CORPUSCULAR HEMOGLOBIN 26.7 pg 25.6-32.2 (BEAKER) (test code = 751) MEAN CORPUSCULAR HEMOGLOBIN CONC 30.1 GM/DL 32.2-35.5 L (BEAKER) (test code = 752) RED CELL DISTRIBUTION WIDTH 18.7 % 11.7-14.4 H (BEAKER) (test code = 412) PLATELET COUNT (BEAKER) (test 363 K/CU MM 150-450 code = 756) MEAN PLATELET VOLUME (BEAKER) 10.7 fL 9.4-12.3 (test code = 754) NUCLEATED RED BLOOD CELLS 0 /100 WBC 0-0 (BEAKER) (test code = 413) NEUTROPHILS RELATIVE PERCENT 70 % (BEAKER) (test code = 429) LYMPHOCYTES RELATIVE PERCENT 18 % (BEAKER) (test code = 430) MONOCYTES RELATIVE PERCENT 11 % (BEAKER) (test code = 431) EOSINOPHILS RELATIVE PERCENT 1 % (BEAKER) (test code = 432) BASOPHILS RELATIVE PERCENT 1 % (BEAKER) (test code = 437) NEUTROPHILS ABSOLUTE COUNT 9.03 K/ L 1.56-6.13 H (BEAKER) (test code = 670) LYMPHOCYTES ABSOLUTE COUNT 2.27 K/ L 1.18-3.74 (BEAKER) (test code = 414) MONOCYTES ABSOLUTE COUNT (BEAKER) 1.39 K/ L 0.24-0.36 H (test code = 415) EOSINOPHILS ABSOLUTE COUNT 0.12 K/ L 0.04-0.36 (BEAKER) (test code = 416) BASOPHILS ABSOLUTE COUNT (BEAKER) 0.07 K/ L 0.01-0.08 (test code = 417) IMMATURE GRANULOCYTES-RELATIVE 0.90 % 0.00-1.00 PERCENT (BEAKER) (test code = 2801) POCT-GLUCOSE [id number] 06:37:10 Test Item Value Reference Range Interpretation Comments POC-GLUCOSE METER 236 mg/dL 70-110 H : TESTED A T [facility] 6720 (BEAKER) (test code [facility], = 1538) [address]: Instructor Of Spanish/Techni roseline ID = [id number] for Hayley Martínez BASIC METABOLIC [id number] 05:47:07 Test Item Value Reference Range Interpretation Comments SODIUM (BEAKER) 139 meq/L 136-145 (test code = 381) POTASSIUM 3.9 meq/L 3.5-5.1 Specimen slight ly (BEAKER) (test hemolyzed code = 379) CHLORIDE (BEAKER) 92 meq/L 98-107 L (test code = 382) CO2 (BEAKER) 34 meq/L 22-29 H (test code = 355) BLOOD UREA 37 mg/dL 7-21 H NITROGEN (BEAKER) (test code = 354) CREATININE 0.94 mg/dL 0.57-1.25 Specimen slight ly (BEAKER) (test hemolyzed code = 358) GLUCOSE RANDOM 162 mg/dL 70-105 H (BEAKER) (test code = 652) CALCIUM (BEAKER) 10.4 mg/dL 8.4-10.2 H (test code = 697) EGFR (BEAKER) 70 Interpretatio n of eGFR (test code = mL/min/1.73 values Stage De scription 1092) sq m Result G1 Bina l or high >=90 G2 Mildly decreased 60-89 G3a Mildl y to moderately 45-5 9 G3b Moderately to s everely 30-44 G4 Severl y decreased 15-29 G5 Kidney failure <15Reported eGF R is based on the CKD-EPI 2020 equation that d oes not use a race coefficientEsti mated GFR is not as accur ate as Creatinine Radha harry in predicting glom erular filtration rate . Estimated GFR is not appl icable for dialysis patien ts Instructor Of Spanish ID - PIAYA [id number] 05:45:35 Test Item Value Reference Range Interpretation Comments PHOSPHORUS (BEAKER) 4.5 mg/dL 2.3-4.7 Specimen slightly (test code = 604) hemolyzed Instructor Of Spanish ID - PIAYA [id number] 05:45:34 Test Item Value Reference Range Interpretation Comments MAGNESIUM (BEAKER) 2.5 mg/dL 1.6-2.6 Specimen slightly (test code = 627) hemolyzed Instructor Of Spanish ID - PIAYA LCALCIUM, [id number] 04:42:57 Test Item Value Reference Range Interpretation Comments CALCIUM IONIZED (BEAKER) (test 1.13 mmol/L 1.12-1.27 code = 698) PH, BLOOD (BEAKER) (test code = 7.41 1810) BASIC METABOLIC [id number] 21:29:14 Test Item Value Reference Range Interpretation Comments SODIUM (BEAKER) 142 meq/L 136-145 (test code = 381) POTASSIUM 3.0 meq/L 3.5-5.1 L (BEAKER) (test code = 379) CHLORIDE (BEAKER) 105 meq/L 98-107 (test code = 382) CO2 (BEAKER) 24 meq/L 22-29 (test code = 355) BLOOD UREA 27 mg/dL 7-21 H NITROGEN (BEAKER) (test code = 354) CREATININE 0.79 mg/dL 0.57-1.25 (BEAKER) (test code = 358) GLUCOSE RANDOM 207 mg/dL 70-105 H (BEAKER) (test code = 652) CALCIUM (BEAKER) 7.8 mg/dL 8.4-10.2 L (test code = 697) EGFR (BEAKER) 86 Interpretatio n of eGFR (test code = mL/min/1.73 values Stage D escription 1092) sq m Result G1 Bina l or high >=90 G2 Mildly decreased 60-89 G3a Mildl y to moderately 45-5 9 G3b Moderately to s everely 30-44 G4 Severl y decreased 15-29 G5 Kidney failure <15Reported eGF R is based on the CKD-EPI 2020 equation that d oes not use a race coefficientEsti mated GFR is not as accur ate as Creatinine Radha piero in predicting glom erular filtration rate . Estimated GFR is not appl icable for dialysis patien ts Instructor Of Spanish ID - [id number] 21:27:04 Test Item Value Reference Range Interpretation Comments MAGNESIUM (BEAKER) (test code = 1.5 mg/dL 1.6-2.6 L 627) Instructor Of Spanish ID - MARCOBLOOD GAS, [id number] 21:17:20 Test Item Value Reference Range Interpretation Comments PH VENOUS (BEAKER) (test code = 7.43 7.32-7.42 H 701) PCO2 VENOUS (BEAKER) (test code = 55 mm Hg 41-51 H 755) PO2 VENOUS (BEAKER) (test code = 90 mm Hg 25-40 H 702) O2 SATURATION VENOUS (BEAKER) 96.9 % 40.0-70.0 H (test code = 703) HCO3 VENOUS (BEAKER) (test code = 36 mmol/L 21-29 H 705) BASE EXCESS VENOUS (BEAKER) (test 9.4 mmol/L -2.0-3.0 H code = 704) PATIENT TEMPERATURE (BEAKER) (test 37.0 code = 1818) BASIC METABOLIC [id number] 12:49:25 Test Item Value Reference Range Interpretation Comments SODIUM (BEAKER) 139 meq/L 136-145 (test code = 381) POTASSIUM 4.4 meq/L 3.5-5.1 Specimen slight ly (BEAKER) (test hemolyzed code = 379) CHLORIDE (BEAKER) 92 meq/L 98-107 L (test code = 382) CO2 (BEAKER) 31 meq/L 22-29 H (test code = 355) BLOOD UREA 27 mg/dL 7-21 H NITROGEN (BEAKER) (test code = 354) CREATININE 0.94 mg/dL 0.57-1.25 Specimen slight ly (BEAKER) (test hemolyzed code = 358) GLUCOSE RANDOM 243 mg/dL 70-105 H (BEAKER) (test code = 652) CALCIUM (BEAKER) 10.9 mg/dL 8.4-10.2 H (test code = 697) EGFR (BEAKER) 70 Interpretatio n of eGFR (test code = mL/min/1.73 values Stage De scription 1092) sq m Result G1 Bina l or high >=90 G2 Mildly decreased 60-89 G3a Mildl y to moderately 45-5 9 G3b Moderately to s everely 30-44 G4 Severl y decreased 15-29 G5 Kidney failure <15Reported eGF R is based on the CKD-EPI 202 equation that d oes not use a race coefficientEsti mated GFR is not as accur ate as Creatinine Radha piero in predicting glom erular filtration rate . Estimated GFR is not appl icable for dialysis patien ts Instructor Of Spanish ID - [id number] 12:49:24 Test Item Value Reference Range Interpretation Comments MAGNESIUM (BEAKER) 2.0 mg/dL 1.6-2.6 Specimen slightly (test code = 627) hemolyzed Instructor Of Spanish ID - MARCOPOCT-GLUCOSE [id number] 11:36:36 Test Item Value Reference Range Interpretation Comments POC-GLUCOSE METER 247 mg/dL 70-110 H : TESTED A T [facility] 6720 (BEAKER) (test code = [facility], 1538) [address]: Instructor Of Spanish/Techni roseline ID = [id number] for Meena Miller MRSA [id number] 11:22:03 Test Item Value Reference Range Interpretation Comments Result (test code = 6463-4) No MRSA isolated [facility] CenterMRSA [id number] 11:22:03 Test Item Value Reference Range Interpretation Comments CULTURE (BEAKER) (test code No MRSA isolated = 1095) POCT-GLUCOSE [id number] 09:02:18 Test Item Value Reference Range Interpretation Comments POC-GLUCOSE METER 184 mg/dL 70-110 H : TESTED A T [facility] 6720 (BEAKER) (test code = [facility], 1538) [address]: Instructor Of Spanish/Techni roseline ID = [id number] for GE AMBERLYE (V) ROLDAN POCT-GLUCOSE [id number] 05:56:07 Test Item Value Reference Range Interpretation Comments POC-GLUCOSE METER 169 mg/dL 70-110 H : TESTED A T [facility] 6720 (BEAKER) (test code = [facility], 1538) [address]: Instructor Of Spanish/Techni roseline ID = [id number] for LEIDA HEBERT BASIC METABOLIC [id number] 05:24:39 Test Item Value Reference Range Interpretation Comments SODIUM (BEAKER) 140 meq/L 136-145 (test code = 381) POTASSIUM 3.8 meq/L 3.5-5.1 (BEAKER) (test code = 379) CHLORIDE (BEAKER) 93 meq/L 98-107 L (test code = 382) CO2 (BEAKER) 34 meq/L 22-29 H (test code = 355) BLOOD UREA 26 mg/dL 7-21 H NITROGEN (BEAKER) (test code = 354) CREATININE 0.83 mg/dL 0.57-1.25 (BEAKER) (test code = 358) GLUCOSE RANDOM 154 mg/dL 70-105 H (BEAKER) (test code = 652) CALCIUM (BEAKER) 9.9 mg/dL 8.4-10.2 (test code = 697) EGFR (BEAKER) 81 Interpretatio n of eGFR (test code = mL/min/1.73 values Stage De scription 1092) sq m Result G1 Bina l or high >=90 G2 Mildly decreased 60-89 G3a Mildl y to moderately 45-5 9 G3b Moderately to s everely 30-44 G4 Severl y decreased 15-29 G5 Kidney failure <15Reported eGF R is based on the CKD-EPI 2020 equation that d oes not use a race coefficientEsti mated GFR is not as accur ate as Creatinine Radha piero in predicting glom erular filtration rate . Estimated GFR is not appl icable for dialysis patien ts Instructor Of Spanish ID - [id number] 05:24:39 Test Item Value Reference Range Interpretation Comments MAGNESIUM (BEAKER) (test code = 2.1 mg/dL 1.6-2.6 627) Instructor Of Spanish ID - [id number] 05:24:39 Test Item Value Reference Range Interpretation Comments PHOSPHORUS (BEAKER) (test code = 4.9 mg/dL 2.3-4.7 H 604) Instructor Of Spanish ID - MARCOCALCIUM, [id number] 05:05:35 Test Item Value Reference Range Interpretation Comments CALCIUM IONIZED (BEAKER) (test 0.93 mmol/L 1.12-1.27 L code = 698) PH, BLOOD (BEAKER) (test code = 7.43 1810) BLOOD GAS, [id number] 05:05:35 Test Item Value Reference Range Interpretation Comments PH VENOUS (BEAKER) (test code = 7.43 7.32-7.42 H 701) PCO2 VENOUS (BEAKER) (test code = 61 mm Hg 41-51 H 755) PO2 VENOUS (BEAKER) (test code = 157 mm Hg 25-40 H 702) O2 SATURATION VENOUS (BEAKER) 99.0 % 40.0-70.0 H (test code = 703) HCO3 VENOUS (BEAKER) (test code = 39 mmol/L 21-29 H 705) BASE EXCESS VENOUS (BEAKER) (test 12.1 mmol/L -2.0-3.0 H code = 704) PATIENT TEMPERATURE (BEAKER) 37.0 (test code = 1818) CBC W/PLT COUNT & AUTO [id number] 04:59:55 Test Item Value Reference Range Interpretation Comments WHITE BLOOD CELL COUNT (BEAKER) 13.5 K/ L 3.5-10.5 H (test code = 775) RED BLOOD CELL COUNT (BEAKER) 5.04 M/ L 3.93-5.22 (test code = 761) HEMOGLOBIN (BEAKER) (test code = 13.3 GM/DL 11.2-15.7 410) HEMATOCRIT (BEAKER) (test code = 44.4 % 34.1-44.9 411) MEAN CORPUSCULAR VOLUME (BEAKER) 88 fL 79-95 (test code = 753) MEAN CORPUSCULAR HEMOGLOBIN 26.4 pg 25.6-32.2 (BEAKER) (test code = 751) MEAN CORPUSCULAR HEMOGLOBIN CONC 30.0 GM/DL 32.2-35.5 L (BEAKER) (test code = 752) RED CELL DISTRIBUTION WIDTH 18.7 % 11.7-14.4 H (BEAKER) (test code = 412) PLATELET COUNT (BEAKER) (test 314 K/CU MM 150-450 code = 756) MEAN PLATELET VOLUME (BEAKER) 10.1 fL 9.4-12.3 (test code = 754) NUCLEATED RED BLOOD CELLS 0 /100 WBC 0-0 (BEAKER) (test code = 413) NEUTROPHILS RELATIVE PERCENT 74 % (BEAKER) (test code = 429) LYMPHOCYTES RELATIVE PERCENT 15 % (BEAKER) (test code = 430) MONOCYTES RELATIVE PERCENT 10 % (BEAKER) (test code = 431) EOSINOPHILS RELATIVE PERCENT 1 % (BEAKER) (test code = 432) BASOPHILS RELATIVE PERCENT 0 % (BEAKER) (test code = 437) NEUTROPHILS ABSOLUTE COUNT 10.01 K/ L 1.56-6.13 H (BEAKER) (test code = 670) LYMPHOCYTES ABSOLUTE COUNT 1.96 K/ L 1.18-3.74 (BEAKER) (test code = 414) MONOCYTES ABSOLUTE COUNT (BEAKER) 1.32 K/ L 0.24-0.36 H (test code = 415) EOSINOPHILS ABSOLUTE COUNT 0.08 K/ L 0.04-0.36 (BEAKER) (test code = 416) BASOPHILS ABSOLUTE COUNT (BEAKER) 0.04 K/ L 0.01-0.08 (test code = 417) IMMATURE GRANULOCYTES-RELATIVE 0.40 % 0.00-1.00 PERCENT (BEAKER) (test code = 2801) POCT-GLUCOSE [id number] 00:25:58 Test Item Value Reference Range Interpretation Comments POC-GLUCOSE METER 166 mg/dL 70-110 H : TESTED A T [facility] 6720 (BEAKER) (test code = [facility] [employer], 1538) [address]: Instructor Of Spanish/Techni roseline ID = [id number] for RI PPLE, LEIDA BASIC METABOLIC [id number] 21:59:05 Test Item Value Reference Range Interpretation Comments SODIUM (BEAKER) 141 meq/L 136-145 (test code = 381) POTASSIUM 3.4 meq/L 3.5-5.1 L (BEAKER) (test code = 379) CHLORIDE (BEAKER) 91 meq/L 98-107 L (test code = 382) CO2 (BEAKER) 37 meq/L 22-29 H (test code = 355) BLOOD UREA 26 mg/dL 7-21 H NITROGEN (BEAKER) (test code = 354) CREATININE 0.97 mg/dL 0.57-1.25 (BEAKER) (test code = 358) GLUCOSE RANDOM 177 mg/dL 70-105 H (BEAKER) (test code = 652) CALCIUM (BEAKER) 9.6 mg/dL 8.4-10.2 (test code = 697) EGFR (BEAKER) 67 Interpretatio n of eGFR (test code = mL/min/1.73 values Stage De scription 1092) sq m Result G1 Bina l or high >=90 G2 Mildly decreased 60-89 G3a Mildl y to moderately 45-5 9 G3b Moderately to s everely 30-44 G4 Severl y decreased 15-29 G5 Kidney failure <15Reported eGF R is based on the CKD-EPI 202 equation that d oes not use a race coefficientEsti mated GFR is not as accur ate as Creatinine Radha piero in predicting glom erular filtration rate . Estimated GFR is not appl icable for dialysis patien ts Instructor Of Spanish ID - [id number] 21:59:05 Test Item Value Reference Range Interpretation Comments MAGNESIUM (BEAKER) (test code = 2.4 mg/dL 1.6-2.6 627) Instructor Of Spanish ID - BSBLOOD GAS, [id number] 21:57:24 Test Item Value Reference Range Interpretation Comments PH VENOUS (BEAKER) (test code = 7.48 7.32-7.42 H 701) PCO2 VENOUS (BEAKER) (test code = 60 mm Hg 41-51 H 755) PO2 VENOUS (BEAKER) (test code = 55 mm Hg 25-40 H 702) O2 SATURATION VENOUS (BEAKER) 89.7 % 40.0-70.0 H (test code = 703) HCO3 VENOUS (BEAKER) (test code = 44 mmol/L 21-29 HH 705) BASE EXCESS VENOUS (BEAKER) (test 17.2 mmol/L -2.0-3.0 H code = 704) PATIENT TEMPERATURE (BEAKER) 37.0 (test code = 1818) FIO2 (BEAKER) (test code = 1819) 100.0 CALCIUM, [id number] 21:54:48 Test Item Value Reference Range Interpretation Comments CALCIUM IONIZED (BEAKER) (test 0.99 mmol/L 1.12-1.27 L code = 698) PH, BLOOD (BEAKER) (test code = 7.48 1810) POCT-GLUCOSE [id number] 19:44:55 Test Item Value Reference Range Interpretation Comments POC-GLUCOSE METER 211 mg/dL 70-110 H : TESTED A T [facility] 6720 (BEAKER) (test code = [facility], 1538) [address]: Instructor Of Spanish/Techni roseline ID = [id number] for NE MAINE COOKA POCT-GLUCOSE [id number] 12:20:24 Test Item Value Reference Range Interpretation Comments POC-GLUCOSE METER 224 mg/dL 70-110 H : TESTED A T [facility] 6720 (BEAKER) (test code = [facility], 1538) [address]: Instructor Of Spanish/Techni roseline ID = [id number] for AG UILAR, MARY [id number] 11:22:59 Test Item Value Reference Range Interpretation Comments PROCALCITONIN (BEAKER) (test code = < ng/mL <0.05 3036) SEPSIS RISK (ng/mL)Low: 0.05-0.50Intermediate: 0.51-2.00High: >=2.01MAGNESIUM 2022-02-09 11:13:48 Test Item Value Reference Range Interpretation Comments MAGNESIUM (BEAKER) 1.9 mg/dL 1.6-2.6 Specimen slightly (test code = 627) hemolyzed Instructor Of Spanish ID - MARCOBASIC METABOLIC [id number] 11:13:48 Test Item Value Reference Range Interpretation Comments SODIUM (BEAKER) 140 meq/L 136-145 (test code = 381) POTASSIUM 3.7 meq/L 3.5-5.1 Specimen slight ly (BEAKER) (test hemolyzed code = 379) CHLORIDE (BEAKER) 89 meq/L 98-107 L (test code = 382) CO2 (BEAKER) 39 meq/L 22-29 H (test code = 355) BLOOD UREA 21 mg/dL 7-21 NITROGEN (BEAKER) (test code = 354) CREATININE 0.86 mg/dL 0.57-1.25 Specimen slight ly (BEAKER) (test hemolyzed code = 358) GLUCOSE RANDOM 199 mg/dL 70-105 H (BEAKER) (test code = 652) CALCIUM (BEAKER) 9.7 mg/dL 8.4-10.2 (test code = 697) EGFR (BEAKER) 78 Interpretatio n of eGFR (test code = mL/min/1.73 values Stage De scription 1092) sq m Result G1 Bina l or high >=90 G2 Mildly decreased 60-89 G3a Mild ly to moderately 45-5 9 G3b Moderately to s everely 30-44 G4 Severl y decreased 15-29 G5 Kidney failure <15Reported eGF R is based on the CKD-EPI 2020 equation that d oes not use a race coefficientEsti mated GFR is not as accur ate as Creatinine Radha harry in predicting glom erular filtration rate . Estimated GFR is not appl icable for dialysis patien ts Instructor Of Spanish ID - STEVEND, CHEST, 1 VIEW, NON [id number] 09:44:00Reason for exam:->mechanical ventilation [facility] CENTERName: [facility] ORNELAS : 1960 Sex: FFINAL REPORT RAD, CHEST, 1 VIEW, NON DEPT INDICATION: mechanical ventilation COMPARISON: Prior day's exam FINDINGS: Portable frontal view of the chest. IMPRESSION: Support Lines: Pacer. ET tube tip is 4 cm superior to tamara. NG tube descends below the diaphragm. Lungs and pleura: Unchanged diffuse interstitial thickening, representing singly or in combination, interstitial edema and/or pneumonitis. No significant pneumothorax. Heart and mediastinum: Stable contours. Stable surgical changes. Additional findings: None. Signed: Josephine Pastor MDReport Verified Date/Time: 309:44:20 Reading Location: [address] Reading Room BLOOD GAS, [id number] 07:03:23 Test Item Value Reference Range Interpretation Comments PH VENOUS (BEAKER) (test code = 7.50 7.32-7.42 H 701) PCO2 VENOUS (BEAKER) (test code = 58 mm Hg 41-51 H 755) PO2 VENOUS (BEAKER) (test code = 63 mm Hg 25-40 H 702) O2 SATURATION VENOUS (BEAKER) 93.4 % 40.0-70.0 H (test code = 703) HCO3 VENOUS (BEAKER) (test code = 44 mmol/L 21-29 HH 705) BASE EXCESS VENOUS (BEAKER) (test 17.4 mmol/L -2.0-3.0 H code = 704) PATIENT TEMPERATURE (BEAKER) 37.0 (test code = 1818) FIO2 (BEAKER) (test code = 1819) 40.0 BASIC METABOLIC [id number] 06:37:07 Test Item Value Reference Range Interpretation Comments SODIUM (BEAKER) 141 meq/L 136-145 (test code = 381) POTASSIUM 3.5 meq/L 3.5-5.1 (BEAKER) (test code = 379) CHLORIDE (BEAKER) 92 meq/L 98-107 L (test code = 382) CO2 (BEAKER) 35 meq/L 22-29 H (test code = 355) BLOOD UREA 22 mg/dL 7-21 H NITROGEN (BEAKER) (test code = 354) CREATININE 0.84 mg/dL 0.57-1.25 (BEAKER) (test code = 358) GLUCOSE RANDOM 160 mg/dL 70-105 H (BEAKER) (test code = 652) CALCIUM (BEAKER) 9.0 mg/dL 8.4-10.2 (test code = 697) EGFR (BEAKER) 80 Interpretatio n of eGFR (test code = mL/min/1.73 values Stage De scription 1092) sq m Result G1 Bina l or high >=90 G2 Mildly decreased 60-89 G3a Mildl y to moderately 45-5 9 G3b Moderately to s everely 30-44 G4 Severl y decreased 15-29 G5 Kidney failure <15Reported eGF R is based on the CKD-EPI 2020 equation that d oes not use a race coefficientEsti mated GFR is not as accur ate as Creatinine Radha piero in predicting glom erular filtration rate . Estimated GFR is not appl icable for dialysis patien ts Instructor Of Spanish ID - [id number] 06:37:07 Test Item Value Reference Range Interpretation Comments MAGNESIUM (BEAKER) (test code = 2.0 mg/dL 1.6-2.6 627) Instructor Of Spanish ID - [id number] 06:37:07 Test Item Value Reference Range Interpretation Comments PHOSPHORUS (BEAKER) (test code = 3.6 mg/dL 2.3-4.7 604) Instructor Of Spanish ID - CESIAOPOCT-GLUCOSE [id number] 05:59:22 Test Item Value Reference Range Interpretation Comments POC-GLUCOSE METER 196 mg/dL 70-110 H : Notified RN/MD: (BEAKER) (test code = TESTED AT [facility] [id number]) [place], [address]: Instructor Of Spanish/Techni roseline ID = [id number] for FISH QUIROZ CBC W/PLT COUNT & AUTO [id number] 05:00:22 Test Item Value Reference Range Interpretation Comments WHITE BLOOD CELL COUNT 14.6 K/ L 3.5-10.5 H (BEAKER) (test code = 775) RED BLOOD CELL COUNT 4.59 M/ L 3.93-5.22 (BEAKER) (test code = 761) HEMOGLOBIN (BEAKER) 12.2 GM/DL 11.2-15.7 (test code = 410) HEMATOCRIT (BEAKER) 40.4 % 34.1-44.9 (test code = 411) MEAN CORPUSCULAR 88 fL 79-95 Discordant MCV VOLUME (BEAKER) (test result s compared to code = 753) previous result s; clinical correl ation required MEAN CORPUSCULAR 26.6 pg 25.6-32.2 HEMOGLOBIN (BEAKER) (test code = 751) MEAN CORPUSCULAR 30.2 GM/DL 32.2-35.5 L HEMOGLOBIN CONC (BEAKER) (test code = 752) RED CELL DISTRIBUTION 18.6 % 11.7-14.4 H WIDTH (BEAKER) (test code = 412) PLATELET COUNT 312 K/CU MM 150-450 (BEAKER) (test code = 756) MEAN PLATELET VOLUME 10.0 fL 9.4-12.3 (BEAKER) (test code = 754) NUCLEATED RED BLOOD 0 /100 WBC 0-0 CELLS (BEAKER) (test code = 413) NEUTROPHILS RELATIVE 73 % PERCENT (BEAKER) (test code = 429) LYMPHOCYTES RELATIVE 17 % PERCENT (BEAKER) (test code = 430) MONOCYTES RELATIVE 9 % PERCENT (BEAKER) (test code = 431) EOSINOPHILS RELATIVE 0 % PERCENT (BEAKER) (test code = 432) BASOPHILS RELATIVE 0 % PERCENT (BEAKER) (test code = 437) NEUTROPHILS ABSOLUTE 10.67 K/ L 1.56-6.13 H COUNT (BEAKER) (test code = 670) LYMPHOCYTES ABSOLUTE 2.46 K/ L 1.18-3.74 COUNT (BEAKER) (test code = 414) MONOCYTES ABSOLUTE 1.32 K/ L 0.24-0.36 H COUNT (BEAKER) (test code = 415) EOSINOPHILS ABSOLUTE 0.05 K/ L 0.04-0.36 COUNT (BEAKER) (test code = 416) BASOPHILS ABSOLUTE 0.04 K/ L 0.01-0.08 COUNT (BEAKER) (test code = 417) IMMATURE 0.60 % 0.00-1.00 GRANULOCYTES-RELATIVE PERCENT (BEAKER) (test code = 2801) BLOOD GAS, [id number] 04:44:59 Test Item Value Reference Range Interpretation Comments PH VENOUS (BEAKER) (test code = 7.49 7.32-7.42 H 701) PCO2 VENOUS (BEAKER) (test code = 63 mm Hg 41-51 H 755) PO2 VENOUS (BEAKER) (test code = 71 mm Hg 25-40 H 702) O2 SATURATION VENOUS (BEAKER) 94.8 % 40.0-70.0 H (test code = 703) HCO3 VENOUS (BEAKER) (test code = 47 mmol/L 21-29 HH 705) BASE EXCESS VENOUS (BEAKER) (test 19.6 mmol/L -2.0-3.0 H code = 704) PATIENT TEMPERATURE (BEAKER) 37.0 (test code = 1818) FIO2 (BEAKER) (test code = 1819) 100.0 CALCIUM, [id number] 04:42:39 Test Item Value Reference Range Interpretation Comments CALCIUM IONIZED (BEAKER) (test 0.96 mmol/L 1.12-1.27 L code = 698) PH, BLOOD (BEAKER) (test code = 7.49 1810) POCT-GLUCOSE [id number] 23:59:58 Test Item Value Reference Range Interpretation Comments POC-GLUCOSE METER 183 mg/dL 70-110 H : Notified RN/MD: (BEAKER) (test code = TESTED AT [facility] [id number]) [place] [employer], [address]: Instructor Of Spanish/Techni roseline ID = [id number] for FISH ORTA BASIC METABOLIC [id number] 21:33:43 Test Item Value Reference Range Interpretation Comments SODIUM (BEAKER) 143 meq/L 136-145 (test code = 381) POTASSIUM 3.6 meq/L 3.5-5.1 (BEAKER) (test code = 379) CHLORIDE (BEAKER) 96 meq/L 98-107 L (test code = 382) CO2 (BEAKER) 35 meq/L 22-29 H (test code = 355) BLOOD UREA 23 mg/dL 7-21 H NITROGEN (BEAKER) (test code = 354) CREATININE 0.90 mg/dL 0.57-1.25 (BEAKER) (test code = 358) GLUCOSE RANDOM 176 mg/dL 70-105 H (BEAKER) (test code = 652) CALCIUM (BEAKER) 9.0 mg/dL 8.4-10.2 (test code = 697) EGFR (BEAKER) 74 Interpretati on of eGFR (test code = mL/min/1.73 values Stage De scription 1092) sq m Result G1 Bina l or high >=90 G2 Mildly decreased 60-89 G3a Mildl y to moderately 45-5 9 G3b Moderately to s everely 30-44 G4 Severl y decreased 15-29 G5 Kidney failure <15Reported eGF R is based on the CKD-EPI 2020 equation that d oes not use a race coefficientEsti mated GFR is not as accur ate as Creatinine Radha piero in predicting glom erular filtration rate . Estimated GFR is not appl icable for dialysis patien ts Instructor Of Spanish ID - [id number] 21:33:43 Test Item Value Reference Range Interpretation Comments MAGNESIUM (BEAKER) (test code = 1.7 mg/dL 1.6-2.6 627) Instructor Of Spanish ID - BSBLOOD GAS, [id number] 20:44:31 Test Item Value Reference Range Interpretation Comments PH VENOUS (BEAKER) (test code = 7.49 7.32-7.42 H 701) PCO2 VENOUS (BEAKER) (test code = 52 mm Hg 41-51 H 755) PO2 VENOUS (BEAKER) (test code = 83 mm Hg 25-40 H 702) O2 SATURATION VENOUS (BEAKER) 96.7 % 40.0-70.0 H (test code = 703) HCO3 VENOUS (BEAKER) (test code = 39 mmol/L 21-29 H 705) BASE EXCESS VENOUS (BEAKER) (test 13.4 mmol/L -2.0-3.0 H code = 704) PATIENT TEMPERATURE (BEAKER) 37.0 (test code = 1818) FIO2 (BEAKER) (test code = 1819) 21.0 POCT-GLUCOSE [id number] 20:22:45 Test Item Value Reference Range Interpretation Comments POC-GLUCOSE METER 204 mg/dL 70-110 H : TESTED A T [facility] 6720 (BEAKER) (test code = [place], 1538) [address]: Instructor Of Spanish/Techni roseline ID = [id number] for FISH QUIROZ Transthoracic 2D echo w/ doppler (cw/pw/color)2022-02-08 17:13:29Ejection FractionSLEH ECHO HEARTLAB MKCKESSON [facility] TROPONIN [id number] 16:30:17 Test Item Value Reference Range Interpretation Comments HIGH SENSITIVITY 498 pg/ml See_Comment H [Automated message] TROPONIN I (test code The sy stem which = [id number]) generated this result transmitted ref erence range: <=17. Th e reference range was not used to int erpret this result as normal/abnormal . Instructor Of Spanish ID - BSThe OPTICAL EFFECTS LINE UP PERSON STAT High Sensitivity Troponin-I results should be used in conjunctionwith other diagnostic information such as ECG, clinical observations and information, and patient symptoms to aid in the diagnosis of UT.BLOOD GAS, [id number] 15:44:30 Test Item Value Reference Range Interpretation Comments PH VENOUS (BEAKER) (test code = 7.48 7.32-7.42 H 701) PCO2 VENOUS (BEAKER) (test code = 53 mm Hg 41-51 H 755) PO2 VENOUS (BEAKER) (test code = 63 mm Hg 25-40 H 702) O2 SATURATION VENOUS (BEAKER) 93.1 % 40.0-70.0 H (test code = 703) HCO3 VENOUS (BEAKER) (test code = 38 mmol/L 21-29 H 705) BASE EXCESS VENOUS (BEAKER) (test 12.5 mmol/L -2.0-3.0 H code = 704) PATIENT TEMPERATURE (BEAKER) 37.0 (test code = 1818) FIO2 (BEAKER) (test code = 1819) 21.0 HIGH SENSITIVITY TROPONIN [id number] 12:24:43 Test Item Value Reference Range Interpretation Comments HIGH SENSITIVITY 636 pg/ml See_Comment HH [Automated message] TROPONIN I (test code The sy stem which = [id number]) generated this result transmitted ref erence range: <=17. Th e reference range was not used to int erpret this result as normal/abnormal . Instructor Of Spanish ID - ROLANDO GThe OPTICAL EFFECTS LINE UP PERSON STAT High Sensitivity Troponin-I results should be used in conjunction with other diagnostic information such as ECG, clinical observations and information, and patient symptoms to aid in the diagnosis of UT.[id number] 12:04:16 Test Item Value Reference Range Interpretation Comments MAGNESIUM (BEAKER) 1.8 mg/dL 1.6-2.6 Specimen slightly (test code = 627) hemolyzed Instructor Of Spanish ID - ROLANDO GBASIC METABOLIC [id number] 12:04:16 Test Item Value Reference Range Interpretation Comments SODIUM (BEAKER) 143 meq/L 136-145 (test code = 381) POTASSIUM 3.6 meq/L 3.5-5.1 Specimen slight ly (BEAKER) (test hemolyzed code = 379) CHLORIDE (BEAKER) 98 meq/L 98-107 (test code = 382) CO2 (BEAKER) 32 meq/L 22-29 H (test code = 355) BLOOD UREA 24 mg/dL 7-21 H NITROGEN (BEAKER) (test code = 354) CREATININE 1.09 mg/dL 0.57-1.25 Specimen slight ly (BEAKER) (test hemolyzed code = 358) GLUCOSE RANDOM 198 mg/dL 70-105 H (BEAKER) (test code = 652) CALCIUM (BEAKER) 9.1 mg/dL 8.4-10.2 (test code = 697) EGFR (BEAKER) 59 Interpretatio n of eGFR (test code = mL/min/1.73 values Stage De scription 1092) sq m Result G1 Bina l or high >=90 G2 Mildly decreased 60-89 G3a Mildl y to moderately 45-5 9 G3b Moderately to s everely 30-44 G4 Severl y decreased 15-29 G5 Kidne y failure <15Reported eGF R is based on the CKD-EPI 202 equation that d oes not use a race coefficientEsti mated GFR is not as accur ate as Creatinine Radha piero in predicting glom erular filtration rate . Estimated GFR is not appl icable for dialysis patien ts Instructor Of Spanish ID - ROLANDO GBLOOD GAS, [id number] 11:42:38 Test Item Value Reference Range Interpretation Comments PH VENOUS (BEAKER) (test code = 7.45 7.32-7.42 H 701) PCO2 VENOUS (BEAKER) (test code = 55 mm Hg 41-51 H 755) PO2 VENOUS (BEAKER) (test code = 45 mm Hg 25-40 H 702) O2 SATURATION VENOUS (BEAKER) 81.5 % 40.0-70.0 H (test code = 703) HCO3 VENOUS (BEAKER) (test code = 37 mmol/L 21-29 H 705) BASE EXCESS VENOUS (BEAKER) (test 11.2 mmol/L -2.0-3.0 H code = 704) PATIENT TEMPERATURE (BEAKER) 37.0 (test code = 1818) FIO2 (BEAKER) (test code = 1819) 40.0 RAD, ABDOMEN/KUB, 1 VIEW [id number] 08:53:00Reason for exam:->og tube placementVA [facility] : 1960 Sex: FFINAL REPORT RAD, ABDOMEN/KUB, 1 VIEW AP INDICATION: og tube placement COMPARISON: None TECHNIQUE: Limited portable radiograph of the lower chest and upper abdomen was acquired for purposes of evaluating tube placement FINDINGS/IMPRESSION:NG side-port overlies the stomach Signed: Josephine Pastor Verified Date/Time: 02/08/2022 08:53:39 Reading Location: [address] Reading Room BLOOD GAS, [id number] 08:15:16 Test Item Value Reference Range Interpretation Comments PH VENOUS (BEAKER) (test code = 7.51 7.32-7.42 H 701) PCO2 VENOUS (BEAKER) (test code = 45 mm Hg 41-51 755) PO2 VENOUS (BEAKER) (test code = 55 mm Hg 25-40 H 702) O2 SATURATION VENOUS (BEAKER) 91.1 % 40.0-70.0 H (test code = 703) HCO3 VENOUS (BEAKER) (test code = 35 mmol/L 21-29 H 705) BASE EXCESS VENOUS (BEAKER) (test 10.5 mmol/L -2.0-3.0 H code = 704) PATIENT TEMPERATURE (BEAKER) 37.0 (test code = 1818) FIO2 (BEAKER) (test code = 1819) 21.0 Urinalysis with Microscopic If [id number] 07:51:46 Test Item Value Reference Range Interpretation Comments Color, UA (test code = Colorless 5778-6) Clarity, UA (test code = Clear 5767-9) Specific [place], UA 1.012 1.001-1.035 (test code = 5811-5) pH, UA (test code = 6.0 5.0-8.0 5803-2) Protein, UA (test code = Negative Negative 38379-9) Glucose, UA (test code = Negative Negative 365) Ketones, UA (test code = Negative Negative 2514-8) Bilirubin, UA (test code Negative Negative = 88989-9) Blood, UA (test code = Negative Negative 17427-4) Nitrite, UA (test code = Negative Negative 5802-4) Leukocytes, UA (test Negative Negative code = 5799-2) Urobilinogen, UA (test 0.2 0.2-1.0 code = 79991-8) Specimen Source (test code = 2795) FABIANA (test code = FABIANA) Instructor Of Spanish ID - [auto] [facility]OSCOPIC IF [id number] 07:51:46 Test Item Value Reference Range Interpretation Comments COLOR (BEAKER) (test code = 470) Colorless CLARITY (BEAKER) (test code = 469) Clear SPECIFIC GRAVITY UA (BEAKER) (test 1.012 1.001-1.035 code = 468) PH UA (BEAKER) (test code = 467) 6.0 5.0-8.0 PROTEIN UA (BEAKER) (test code = Negative Negative 464) GLUCOSE UA (BEAKER) (test code = Negative Negative 365) KETONES UA (BEAKER) (test code = Negative Negative 371) BILIRUBIN UA (BEAKER) (test code = Negative Negative 462) BLOOD UA (BEAKER) (test code = 461) Negative Negative NITRITE UA (BEAKER) (test code = Negative Negative 465) LEUKOCYTE ESTERASE UA (BEAKER) Negative Negative (test code = 466) UROBILINOGEN UA (BEAKER) (test code 0.2 0.2-1.0 = 463) SOURCE(BEAKER) (test code = 2795) Instructor Of Spanish ID - [auto]POCT-GLUCOSE [id number] 06:12:02 Test Item Value Reference Range Interpretation Comments POC-GLUCOSE METER 227 mg/dL 70-110 H : TESTED A T [facility] 6720 (BEAKER) (test code = [facility] [employer], 1538) [address]: Instructor Of Spanish/Techni roseline ID = [id number] for VELASQUEZ PURI [id number] 05:27:56 Test Item Value Reference Range Interpretation Comments PARTIAL THROMBOPLASTIN TIME 27.2 seconds 22.5-36.0 (BEAKER) (test code = 760) HIGH SENSITIVITY TROPONIN [id number] 05:19:48 Test Item Value Reference Range Interpretation Comments HIGH SENSITIVITY 580 pg/ml See_Comment HH [Automated message] TROPONIN I (test code The sy stem which = [id number]) generated this result transmitted ref erence range: <=17. Th e reference range was not used to int erpret this result as normal/abnormal . Instructor Of Spanish ID - BSThe OPTICAL EFFECTS LINE UP PERSON STAT High Sensitivity Troponin-I results should be used in conjunctionwith other diagnostic information such as ECG, clinical observations and information, and patient symptoms to aid in the diagnosis of UT.PROTHROMBIN TIME/[id number] 04:33:11 Test Item Value Reference Range Interpretation Comments PROTIME (BEAKER) 14.0 seconds 11.9-14.2 specimen cl otted (test code = 759) [id number] is a corrected resul t. Previous result was 14.0 seconds on 02/08/2022 at 023 2 MULTIFOCAL LENS ASSEMBLER INR (BEAKER) (test 1.14 See_Comment specimen clotted code = 370) [id number] is a corrected resul t. Previous result was 1.14 on 3 at 0232 MULTIFOCAL LENS ASSEMBLER specimen clotted [id number] COUMADIN/WARFARIN INR THERAPY RANGESSTANDARD DOSE: 2.0 - 3.0 Includes: PROPHYLAXIS for venous thrombosis, systemic embolization; TREATMENT for venous thrombosis and/or pulmonary embolus.HIGH RISK: Target INR is 2.5-3.5 for patients with mechanical heart valves.T4, FREE 2022-02-08 03:42:23 Test Item Value Reference Range Interpretation Comments FREE T4 (BEAKER) (test code = 655) 1.01 ng/dL 0.70-1.48 Instructor Of Spanish ID - BSTSH/FREE T4 IF [id number] 03:01:25 Test Item Value Reference Range Interpretation Comments THYROID STIMULATING HORMONE 0.108 uIU/mL 0.350-4.940 L (BEAKER) (test code = 772) Instructor Of Spanish ID - [id number] 02:35:15 Test Item Value Reference Range Interpretation Comments PHOSPHORUS (BEAKER) (test code = 0.9 mg/dL 2.3-4.7 LL 604) Instructor Of Spanish ID - BSPOCT-GLUCOSE [id number] 02:33:44 Test Item Value Reference Range Interpretation Comments POC-GLUCOSE METER 224 mg/dL 70-110 H : TESTED A T [facility] 6720 (BEAKER) (test code = [facility] [employer], 1538) [address]: Instructor Of Spanish/Techni roseline ID = [id number] for Salena Willett B-TYPE NATRIURETIC FACTOR (BNP)2022-02-08 02:32:19 Test Item Value Reference Range Interpretation Comments B-TYPE NATRIURETIC PEPTIDE (BEAKER) 105 pg/mL 0-100 H (test code = 700) Instructor Of Spanish ID - BSHIGH SENSITIVITY TROPONIN [id number] 02:31:59 Test Item Value Reference Range Interpretation Comments HIGH SENSITIVITY 406 pg/ml See_Comment H [Automated message] TROPONIN I (test code The sy stem which = [id number]) generated this result transmitted ref erence range: <=17. Th e reference range was not used to int erpret this result as normal/abnormal . Instructor Of Spanish ID - BSThe OPTICAL EFFECTS LINE UP PERSON STAT High Sensitivity Troponin-I results should be used in conjunctionwith other diagnostic information such as ECG, clinical observations and information, and patient symptoms to aid in the diagnosis of UT.HEPATIC FUNCTION [id number] 02:28:01 Test Item Value Reference Range Interpretation Comments TOTAL PROTEIN (BEAKER) (test code = 7.5 gm/dL 6.0-8.3 770) ALBUMIN (BEAKER) (test code = 1145) 3.7 g/dL 3.5-5.0 BILIRUBIN TOTAL (BEAKER) (test code 0.6 mg/dL 0.2-1.2 = 377) BILIRUBIN DIRECT (BEAKER) (test 0.3 mg/dL 0.1-0.5 code = 706) ALKALINE PHOSPHATASE (BEAKER) (test 71 U/L 40-150 code = 346) AST (SGOT) (BEAKER) (test code = 28 U/L 5-34 353) ALT (SGPT) (BEAKER) (test code = 28 U/L 6-55 347) Instructor Of Spanish ID - BSC-REACTIVE [id number] 02:28:01 Test Item Value Reference Range Interpretation Comments C-REACTIVE PROTEIN (BEAKER) (test 2.64 mg/dL 0.00-0.50 H code = 676) Instructor Of Spanish ID - BSBASIC METABOLIC [id number] 02:28:00 Test Item Value Reference Range Interpretation Comments SODIUM (BEAKER) 142 meq/L 136-145 (test code = 381) POTASSIUM 4.2 meq/L 3.5-5.1 (BEAKER) (test code = 379) CHLORIDE (BEAKER) 100 meq/L 98-107 (test code = 382) CO2 (BEAKER) 30 meq/L 22-29 H (test code = 355) BLOOD UREA 23 mg/dL 7-21 H NITROGEN (BEAKER) (test code = 354) CREATININE 1.22 mg/dL 0.57-1.25 (BEAKER) (test code = 358) GLUCOSE RANDOM 237 mg/dL 70-105 H (BEAKER) (test code = 652) CALCIUM (BEAKER) 9.4 mg/dL 8.4-10.2 (test code = 697) EGFR (BEAKER) 51 Interpretatio n of eGFR (test code = mL/min/1.73 values Stage De scription 1092) sq m Result G1 Bina l or high >=90 G2 Mildly decreased 60-89 G3a Mildl y to moderately 45-5 9 G3b Moderately to s everely 30-44 G4 Severl y decreased 15-29 G5 Kidney failure <15Reported eGF R is based on the CKD-EPI 2020 equation that d oes not use a race coefficientEsti mated GFR is not as accur ate as Creatinine Radha piero in predicting glom erular filtration rate . Estimated GFR is not appl icable for dialysis patien ts Instructor Of Spanish ID - [id number] 02:28:00 Test Item Value Reference Range Interpretation Comments MAGNESIUM (BEAKER) (test code = 1.4 mg/dL 1.6-2.6 L 627) Instructor Of Spanish ID - BSLACTIC ACID, [id number] 02:22:19 Test Item Value Reference Range Interpretation Comments LACTATE BLOOD VENOUS 1.66 mmol/L 0.50-2.20 Specime n slightly (2) (BEAKER) (test hemolyzed code = 0412) Instructor Of Spanish ID - BSCBC W/PLT COUNT & AUTO [id number] 02:16:38 Test Item Value Reference Range Interpretation Comments WHITE BLOOD CELL COUNT (BEAKER) 12.4 K/ L 3.5-10.5 H (test code = 775) RED BLOOD CELL COUNT (BEAKER) 4.50 M/ L 3.93-5.22 (test code = 761) HEMOGLOBIN (BEAKER) (test code = 12.0 GM/DL 11.2-15.7 410) HEMATOCRIT (BEAKER) (test code = 41.3 % 34.1-44.9 411) MEAN CORPUSCULAR VOLUME (BEAKER) 92 fL 79-95 (test code = 753) MEAN CORPUSCULAR HEMOGLOBIN 26.7 pg 25.6-32.2 (BEAKER) (test code = 751) MEAN CORPUSCULAR HEMOGLOBIN CONC 29.1 GM/DL 32.2-35.5 L (BEAKER) (test code = 752) RED CELL DISTRIBUTION WIDTH 18.2 % 11.7-14.4 H (BEAKER) (test code = 412) PLATELET COUNT (BEAKER) (test 274 K/CU MM 150-450 code = 756) MEAN PLATELET VOLUME (BEAKER) 9.8 fL 9.4-12.3 (test code = 754) NUCLEATED RED BLOOD CELLS 0 /100 WBC 0-0 (BEAKER) (test code = 413) NEUTROPHILS RELATIVE PERCENT 86 % (BEAKER) (test code = 429) LYMPHOCYTES RELATIVE PERCENT 8 % (BEAKER) (test code = 430) MONOCYTES RELATIVE PERCENT 4 % (BEAKER) (test code = 431) EOSINOPHILS RELATIVE PERCENT 0 % (BEAKER) (test code = 432) BASOPHILS RELATIVE PERCENT 0 % (BEAKER) (test code = 437) NEUTROPHILS ABSOLUTE COUNT 10.69 K/ L 1.56-6.13 H (BEAKER) (test code = 670) LYMPHOCYTES ABSOLUTE COUNT 1.00 K/ L 1.18-3.74 L (BEAKER) (test code = 414) MONOCYTES ABSOLUTE COUNT (BEAKER) 0.51 K/ L 0.24-0.36 H (test code = 415) EOSINOPHILS ABSOLUTE COUNT 0.00 K/ L 0.04-0.36 L (BEAKER) (test code = 416) BASOPHILS ABSOLUTE COUNT (BEAKER) 0.02 K/ L 0.01-0.08 (test code = 417) IMMATURE GRANULOCYTES-RELATIVE 1.30 % 0.00-1.00 H PERCENT (BEAKER) (test code = 2801) BLOOD GAS, [id number] 01:52:11 Test Item Value Reference Range Interpretation Comments PH VENOUS (BEAKER) (test code = 7.39 7.32-7.42 701) PCO2 VENOUS (BEAKER) (test code = 58 mm Hg 41-51 H 755) PO2 VENOUS (BEAKER) (test code = 50 mm Hg 25-40 H 702) O2 SATURATION VENOUS (BEAKER) 83.7 % 40.0-70.0 H (test code = 703) HCO3 VENOUS (BEAKER) (test code = 34 mmol/L 21-29 H 705) BASE EXCESS VENOUS (BEAKER) (test 7.1 mmol/L -2.0-3.0 H code = 704) PATIENT TEMPERATURE (BEAKER) (test 37.0 code = 1818) FIO2 (BEAKER) (test code = 1819) 21.0 RAD, CHEST, 1 VIEW, NON [id number] 01:44:00Reason for exam:->ET tube confirmationShould this be performed at the bedside?->Yes [facility] CENTERName: HAMILTON ORNELAS : 1960 Sex: FFINAL REPORT History: ET tube confirmation. Comparison: 01/27/2021 Findings: A single view of the chest is submitted. The cardiac silhouette is stable in its enlargement. The patient has undergone prior left subclavian, dual-lead pacemaker placement. There is central vascular engorgement. Perihilar interstitial coarsening suggests interstitial edema. A small left pleural effusion ispresent. Retrocardiac opacity may reflect a combination of atelectasis, effusion and edema. Pneumonitis should be excluded clinically. There is no pneumothorax or acute bony abnormality. The tip of an endotracheal tube is 3 cm above the tamara. An enteric tube traverses examination to the upper abdomen. Signed: Taylor [facility]oto [facility] Verified Date/Time: 02/08/2022 01:44:53 ELLANEOUS LAB [id number] 09:26:42 Test Item Value Reference Range Interpretation Comments SCAN RESULT (test code = 3212545) POCT-GLUCOSE [id number] 12:32:49 Test Item Value Reference Range Interpretation Comments POC-GLUCOSE METER 139 mg/dL 70-110 H : TESTED A T [facility] 6720 (BEAKER) (test code = [place], 1538) [address]: Instructor Of Spanish/Techni roseline ID = [id number] for Desi Cxo POCT-GLUCOSE [id number] 08:13:43 Test Item Value Reference Range Interpretation Comments POC-GLUCOSE METER 171 mg/dL 70-110 H : TESTED A T [facility] 6720 (BEAKER) (test code = [facility] [employer], 1538) [address]: Instructor Of Spanish/Techni roseline ID = [id number] for ARA MAZA POCT-GLUCOSE [id number] 17:39:20 Test Item Value Reference Range Interpretation Comments POC-GLUCOSE METER 251 mg/dL 70-110 H : TESTED A T [facility] 6720 (BEAKER) (test code = [facility] [employer], 1538) 31033: Instructor Of Spanish/Techni roseline ID = [id number] for Nallely Benoit RAD, CHEST, 1 VIEW, NON [id number] 15:39:00Reason for exam:->pacemaker implantShould this be performed at the bedside?->Yes [facility] : 1960 Sex: FFINAL REPORT [...] edema. No significant pleural effusion.. Signed: Macy Sol Verified Date/Time: 01/27/2021 15:39:28 Reading Location: [facility] B1 [id number] Consult Reading Room POCT-GLUCOSE [id number] 10:00:32 Test Item Value Reference Range Interpretation Comments POC-GLUCOSE METER 137 mg/dL 70-110 H : TESTED A T [facility] 6720 (BEAKER) (test code = RICH Lopez [place], 1538) 75477: Instructor Of Spanish/Techni roseline ID = [id number] for [place] Fry [id number] 08:10:27 Test Item Value Reference Range Interpretation Comments PHOSPHORUS (BEAKER) (test code = 4.9 mg/dL 2.3-4.7 H 604) Instructor Of Spanish ID - BETTIE MLIPID [id number] 08:10:27 Test Item Value Reference Range Interpretation [...] Borderline 130-159 High 160-189 Very High >=190 Instructor Of Spanish ID - BETTIE [id number] 08:10:26 Test Item Value Reference Range Interpretation Comments MAGNESIUM (BEAKER) (test code = 1.5 mg/dL 1.6-2.6 L 627) Instructor Of Spanish ID - BETTIE MBASIC METABOLIC [id number] 08:10:25 Test Item Value Reference Range Interpretation [...] 697) EGFR (BEAKER) (test 77 mL/min/1.73 ESTIMA CITLALI GFR IS code = 1092) sq m NOT ACCURATE CREATININE CLEARANCE IN PREDICTING GLOMERULAR FILTRATION RATE . ESTIMATED GFR I S NOT APPLICABLE FOR DIALYSIS PATIEN TS. Instructor Of Spanish ID - BETTIE MPROTHROMBIN TIME/[id number] 04:58:03 Test Item Value Reference Range Interpretation Comments PROTIME (BEAKER) 14.6 seconds 11.9-14.2 H (test code = 759) INR (BEAKER) (test 1.16 See_Comment [Automat ed message] code = 370) The system Twiigg generated this result transmitted ref erence range: <=5.90. The reference range was not used to int erpret this result as normal/abnormal . RECOMMENDED COUMADIN/WARFARIN INR THERAPY RANGESSTANDARD DOSE: 2.0 - 3.0 Includes: PROPHYLAXIS for venous thrombosis, systemic embolization; TREATMENT for venous thrombosis and/or pulmonary embolus.HIGH RISK: Target INR is 2.5-3.5 for patients with mechanical heart valves.CBC W/PLT COUNT & AUTO [id number] 04:49:23 Test Item Value Reference Range Interpretation [...] PERCENT (BEAKER) (test code = 2801) SARS-COV2/RT-PCR ([facility])2021-01-26 22:45:28 Test Item Value Reference Range Interpretation Comments SARS-COV2/RT-PCR (test Negative Not Detected, Negative, code = 7613198) See external report for linked test SARS-COV-2 PERFORMING LAB [facility] (test code = 5519234) Negative result for this test determines that [...] of the Act.Fact Sheet for Healthcare Prov iders:https://www.Muzy/sites/default/files/product/documents/Fact_Sheet_HC _Pcmzbgzzu_Xrda_TZYV-WmR-5.pdfFact Sheet for Healthcare Patients:https://www.Muzy/sites/default/files/product/docume nts/Gfoy_Moyof_Ciqtfhjv_Skdk_QWQH-OgU-9.pdfPerforming Laboratory:[facility], [place] [address]YCVM-[id number] METER 2021-01-26 21:59:27 Test Item Value Reference Range Interpretation Comments POC-GLUCOSE METER 153 mg/dL 70-110 H : TESTED Grant Juan [facility] 6720 (BEAKER) (test code = MARY ELLENSPENCER Lopez [employer], 1538) [address]: Instructor Of Spanish/Techni roseline ID = [id number] for MADHURI CRISTINA HEMOGLOBIN [id number] 21:33:53 Test Item Value Reference Range Interpretation Comments HEMOGLOBIN A1C (BEAKER) (test code = 10.3 % 4.3-6.1 H 368) TSH/FREE T4 IF [id number] 18:15:41 Test Item Value Reference Range Interpretation Comments THYROID STIMULATING HORMONE 0.816 uIU/mL 0.350-4.940 (BEAKER) (test code = 772) Instructor Of Spanish ID - [id number] 17:57:59 Test Item Value Reference Range Interpretation Comments MAGNESIUM (BEAKER) (test code = 1.5 mg/dL 1.6-2.6 L 627) Instructor Of Spanish ID - [id number] 17:57:59 Test Item Value Reference Range Interpretation Comments PHOSPHORUS (BEAKER) (test code = 3.1 mg/dL 2.3-4.7 604) Instructor Of Spanish ID - BSBASIC METABOLIC [id number] 17:57:58 Test Item Value Reference Range Interpretation [...] 697) EGFR (BEAKER) (test 70 mL/min/1.73 ESTIMA CITLALI GFR IS code = 1092) sq m NOT ACCURATE CREATININE CLEARANCE IN PREDICTING GLOMERULAR FILTRATION RATE . ESTIMATED GFR I S NOT APPLICABLE FOR DIALYSIS PATIEN TS. Instructor Of Spanish ID - BSPOCT-GLUCOSE [id number] 17:44:45 Test Item Value Reference Range Interpretation Comments POC-GLUCOSE METER 199 mg/dL 70-110 H : Notified RN/: (BEAKER) (test code = TESTED AT [facility] [id number]) [facility], [id number]: Instructor Of Spanish/Techni roseline ID = [id number] for GABI MYLES
[2022-02-15 14:40] LABS: Arterial Blood Carboxyhemoglob 3.1 % (0-1.5); Blood O2 Saturation 47.1 % (92-98.5)
[2022-02-15 14:44] LABS: Absolute Lymphocytes (CBC) 1.1 K/uL (0.7-4.9); Hematocrit 38.2 % (36.0-45.0); Lymphocytes % 9.8 % (15.3-44.8); MCV 87.3 fL (80-100); MPV 8.4 fL (7.6-11.3); RBC Red Blood Cell Count 4.37 M/uL (3.86-4.86)
--- NOTE | 2022-02-15 15:09 | RAD REPORT ---
EXAM DESCRIPTION: RAD - Chest Single View - 02/15/2022 3:02 pm CLINICAL HISTORY: COUGH COMPARISON: <Comparisons> FINDINGS: Lines: Pacemaker. Lungs: Mild pulmonary edema persists. Patient has been extubated. Pleural: No significant pleural effusions or pneumothorax. Cardiac: Cardiomegaly. Mediastinum: Within normal limits. Bones: No acute fractures. Other: None IMPRESSION: Mild pulmonary edema. Interval extubation.
[2022-02-15 15:10] LABS: Potassium 5.2 mmol/L (3.5-5.1); Troponin High Sensitivity 45.4 pg/mL (<58.9)
--- NOTE | 2022-02-15 15:48 | EDPHYS ---
Physician Documentation [facility] Name: Harriet Perera Age: 61 yrs Sex: Female : 1960 Arrival Date: 02/15/2022 Time: 14:15 Bed 3 Private MD: ED Physician Jacek Medina HPI: 02/15 14:54 This 61 yrs old Female presents to ER via EMS with complaints of SOB and altered mental sp3 status. 14:54 61-year-old female with history of COPD and CHF recently seen by Dr. Gallego as well sp3 as myself at shift change approximately 1 week ago who was then intubated for a respiratory acidosis and subsequently transferred to [facility]. Patient returns via EMS for chief complaint of shortness of breath and reported altered mental status by home health aide. Patient has been alert and oriented for EMS but did have some hypoxia in route. Patient's baseline O2 is 4 L via nasal cannula. Patient currently denies any fever, headache, back pain, chest pain, abdominal pain, nausea, vomiting, diarrhea, any other symptoms. Patient arrives quite upset saying "none of you all are going to transfer me anywhere" and also "you will not intubate me". I assured her that we are only here to help and we will evaluate her objectively.. Historical: - Allergies: 14:18 Motrin; ld1 14:18 surgical tape; ld1 - PMHx: 14:18 Chronic obstructive lung disease; Congestive heart failure; Diabetes - NIDDM; ld1 Hypercholesterolemia; Hypertension; - PSHx: 14:18 Cholecystectomy; Pacemaker; ld1 - Immunization history:: Adult Immunizations up to date. - Social history:: Smoking status: Patient denies any tobacco usage or history of. Patient/guardian denies using alcohol. ROS: 14:56 Eyes: Negative for injury, pain, redness, and discharge, Neck: Negative for injury, sp3 pain, and swelling, Cardiovascular: Negative for chest pain, palpitations, and edema, Abdomen/GI: Negative for abdominal pain, nausea, vomiting, diarrhea, and constipation, MS/Extremity: Negative for injury and deformity, Skin: Negative for injury, rash, and discoloration, Neuro: Negative for headache, weakness, numbness, tingling, and seizure, Psych: Negative for depression, anxiety, suicide ideation, homicidal ideation, and hallucinations, Allergy/Immunology: Negative for hives, rash, and allergies, Endocrine: Negative for neck swelling, polydipsia, polyuria, polyphagia, and marked weight changes. 14:56 All other systems are negative. Exam: 14:57 Constitutional: This is a well developed, well nourished patient who is awake, alert, sp3 and in no acute distress. Head/Face: Normocephalic, atraumatic. Eyes: Pupils equal round and reactive to light, extra-ocular motions intact. Lids and lashes normal. Conjunctiva and sclera are non-icteric and not injected. Cornea within normal limits. Periorbital areas with no swelling, redness, or edema. Neck: Trachea midline, no thyromegaly or masses palpated, and no cervical lymphadenopathy. Supple, full range of motion without nuchal rigidity, or vertebral point tenderness. No Meningismus. Chest/axilla: Normal chest wall appearance and motion. Nontender with no deformity. No lesions are appreciated. Cardiovascular: Regular rate and rhythm with a normal S1 and S2. No gallops, murmurs, or rubs. Normal PMI, no JVD. No pulse deficits. MS/ Extremity: Pulses equal, no cyanosis. Neurovascular intact. Full, normal range of motion. Neuro: Awake and alert, GCS 15, oriented to person, place, time, and situation. Cranial nerves II-XII grossly intact. Motor strength 5/5 in all extremities. Sensory grossly intact. Cerebellar exam normal. Normal gait. Psych: Awake, alert, with orientation to person, place and time. Behavior, mood, and affect are within normal limits. 14:57 Respiratory: Scattered wheezes and coarse breath sounds bilaterally.. 15:00 ECG was reviewed by the Attending Physician. EKG demonstrates normal sinus rhythm at 81 sp3 bpm with a first-degree AV block with a MN interval of 220, right bundle branch block, and nonspecific diffuse ST/T changes without evidence of acute ischemia. Vital Signs: 14:16 Weight 140.16 kg; ld1 14:28 Pulse 83; Resp 21; Pulse Ox 96% on 4 lpm NC; Height 5 ft. 8 in. (172.72 cm); Pain 0/10; ld1 14:45 Temp 97.7(O); ld1 14:54 BP 179 / 126; Pulse 82; Resp 16; Pulse Ox 100% on BiPAP; ld1 16:20 BP 79 / 44; Pulse 82; Resp 16; Pulse Ox 100% on BiPAP; ld1 16:40 BP 92 / 45; Pulse 72; Resp 13; Pulse Ox 100% on BiPAP; ld1 17:05 BP 81 / 49; Pulse 80; Resp 13; Pulse Ox 89% on BiPAP; ld1 17:25 BP 79 / 38; Pulse 78; Resp 19; Pulse Ox 98% on BiPAP; ld1 17:25 BP 85 / 38; Pulse 81; Resp 16; Pulse Ox 100% on BiPAP; ld1 17:59 Temp 97.9(O); ld1 14:28 Body Mass Index 46.98 (140.16 kg, 172.72 cm) ld1 Procedures: 17:14 Central Line: the site was prepped with Betadine, in sterile fashion, a triple lumen sp3 catheter was inserted, in the right internal jugular vein, in 1 attempts. placement was verified, by CXR, by blood return, Ultrasound guided, the site was dressed with using sterile technique, Dressing Kit, the patient tolerated the procedure, well, CXR Pending. MDM: 14:44 Patient medically screened. sp3 14:57 Data reviewed: vital signs, nurses notes, EMS record, lab test result(s), EKG, sp3 radiologic studies. ED course: 61-year-old female with COPD and CHF now in respiratory distress with pH of 7.17 and PCO2 of 84.6% with pulse oxygenation at 94% on 4 L nasal cannula. We will start BiPAP /5 and admit patient. Remainder of blood work including BNP is pending. We will hold antibiotics until chest x-ray and remainder of work-up reviewed.. 15:26 ED course: Blood gas demonstrates pH of 7.18 with a PCO2 of 85. Lactate is mildly sp3 elevated at 3.2 and creatinine is significantly increased to 6. Patient is fluid retaining and given the creatinine we will not give additional fluids. Patient has extensive history of CHF in the past and also has an elevated BNP. Will discuss with hospital medicine for admission. BiPAP is been started at 14/5.. 02/15 14:20 Order name: Basic Metabolic Panel; Complete Time: 15:25 sp3 02/15 14:20 Order name: CBC with Diff; Complete Time: 15:02 3 02/15 14:20 Order name: Troponin HS; Complete Time: 15:25 sp3 02/15 14:20 Order name: BNP; Complete Time: 15:25 3 02/15 14:24 Order name: ABG: VBG!; Complete Time: 15:02 sp3 02/15 14:29 Order name: Lactate w/ 2H reflex if indic.; Complete Time: 15:25 3 02/15 14:29 Order name: Blood Culture Adult (2) 3 02/15 15:39 Order name: SARS RAPID ld1 02/15 16:53 Order name: CBC with Automated Diff EDMS 02/15 16:53 Order name: CBC with Automated Diff EDMS 02/15 16:53 Order name: Comprehensive Metabolic Panel EDMS 02/15 16:53 Order name: Comprehensive Metabolic Panel EDMS 02/15 16:53 Order name: Troponin High Sensitivity EDMS 02/15 16:53 Order name: Troponin High Sensitivity EDMS 02/15 14:20 Order name: CXR XRAY; Complete Time: 15:25 3 02/15 16:53 Order name: Echo with Doppler EDMS 02/15 17:00 Order name: Urinalysis W/Microscopic EDMS 02/15 17:02 Order name: Basic Metabolic Panel EDMS 02/15 17:02 Order name: Cortisol EDMS 02/15 17:02 Order name: Creatine Phosphokinase EDMS 02/15 17:02 Order name: Lactate w/ 2H reflex if indic. EDMS 02/15 17:02 Order name: Magnesium EDMS 02/15 17:02 Order name: NT PRO-BNP EDMS 02/15 17:02 Order name: Procalcitonin EDMS 02/15 17:02 Order name: T4 Free EDMS 02/15 17:02 Order name: Thyroid Stimulating Hormone EDMS 02/15 18:17 Order name: Lactate Sepsis 2 HR Follow-up EDMS 02/15 19:16 Order name: Liver (Hepatic) Function EDMS 02/15 19:39 Order name: Protime (+INR) EDMS 02/15 19:39 Order name: PTT, Activated Partial Thromb EDMS 02/15 14:20 Order name: EKG; Complete Time: 14:21 3 02/15 14:20 Order name: Cardiac monitoring; Complete Time: 14:21 3 02/15 14:20 Order name: EKG - Nurse/Tech; Complete Time: 14:28 sp3 02/15 14:20 Order name: IV Saline Lock; Complete Time: 14:28 sp3 02/15 14:20 Order name: Labs collected and sent; Complete Time: 14:28 sp3 02/15 14:20 Order name: O2 Sat Monitoring; Complete Time: 14:21 sp3 02/15 15:58 Order name: Diet Renal; Complete Time: 15:58 ld1 02/15 16:33 Order name: Watkins; Complete Time: 16:33 ld1 02/15 16:53 Order name: CONS Physician Consult EDFL 02/15 16:53 Order name: CONS Physician Consult EDFL 02/15 16:53 Order name: Renal EDFL 02/15 16:53 Order name: Renal Ultrasound-Complete EDMS 02/15 17:13 Order name: XRAY Chest (1 view) 02/15 18:10 Order name: RAD EDMS Administered Medications: No medications were administered Disposition Summary: 02/15/22 15:48 Hospitalization Ordered Hospitalization Status: Inpatient Admission sp3 Provider: Ezequiel Tafoya sp3 Condition: Fair sp3 Problem: an acute exacerbation sp3 Symptoms: have worsened sp3 Bed/Room Type: Standard sp3 Location: Intensive Care Unit(02/15/22 23:57) cg Room Assignment: 6-(02/15/22 23:57) cg Diagnosis - Respiratory distress, hypercarbia, fluid overload, kidney failure sp3 Forms: - Medication Reconciliation Form sp3 - SBAR form sp3 Signatures: Dispatcher [employer] EDShante Marie RN RN cg Anya Park RN RN ld1 Jacek Medina MD MD sp3 Corrections: (The following items were deleted from the chart) 23:57 15:48 Telemetry/MedSurg (Inpatient) sp3 cg 23:57 15:48 sp3 cg
--- NOTE | 2022-02-15 15:48 | ER ---
Nurse's Notes [facility] Name: Harriet Perera Age: 61 yrs Sex: Female : 1960 Arrival Date: 02/15/2022 Time: 14:15 Bed 3 Private MD: Diagnosis: Respiratory distress, hypercarbia, fluid overload, kidney failure Presentation: 02/15 14:16 Chief complaint: EMS states: toned out to pt home for respiratory failure per home ld1 health nurse. Upon arrival pt was on personal bipap machine - SpO2 74% on home bipap. EMS placed pt on cpap machine - SpO2 99%. Coronavirus screen: At this time, the client does not indicate any symptoms associated with coronavirus-19. Ebola Screen: No symptoms or risks identified at this time. Risk Assessment: Do you want to hurt yourself or someone else? Patient reports no desire to harm self or others. Onset of symptoms was February 15, 2022. 14:16 Method Of Arrival: EMS: [facility] ld1 14:16 Acuity: CHRIS 2 ld1 Triage Assessment: 14:18 General: Appears in no apparent distress. comfortable, Behavior is calm, cooperative, ld1 appropriate for age. Pain: Denies pain. EENT: No signs and/or symptoms were reported regarding the EENT system. Neuro: Level of Consciousness is awake, alert, obeys commands, Oriented to person, place, time, situation, Appropriate for age. Cardiovascular: Capillary refill < 3 seconds Patient's skin is warm and dry. . Respiratory: Airway is patent Respiratory effort is even, unlabored. GI: Abdomen is round non-distended. : No signs and/or symptoms were reported regarding the genitourinary system. Derm: No signs and/or symptoms reported regarding the dermatologic system. Historical: - Allergies: 14:18 Motrin; ld1 14:18 surgical tape; ld1 - PMHx: 14:18 Chronic obstructive lung disease; Congestive heart failure; Diabetes - NIDDM; ld1 Hypercholesterolemia; Hypertension; - PSHx: 14:18 Cholecystectomy; Pacemaker; ld1 - Immunization history:: Adult Immunizations up to date. - Social history:: Smoking status: Patient denies any tobacco usage or history of. Patient/guardian denies using alcohol. Screenin:20 [facility] ED Fall Risk Assessment (Adult) History of falling in the last 3 months, ld1 including since admission No falls in past 3 months (0 pts). Abuse screen: Denies threats or abuse. Denies injuries from another. Nutritional screening: No deficits noted. Tuberculosis screening: No symptoms or risk factors identified. Assessment: 14:20 Reassessment: See triage assessment. ld1 14:33 Respiratory: Patient placed on BiPAP: Inspiratory Pressure: 14 Expiratory (EPAP) ld1 Pressure: 5 FiO2%: 50 Respiratory Rate: 14. 14:54 Reassessment: Purewick in place. Pt denies pain at this time. ld1 16:00 Reassessment: No changes from previously documented assessment. Patient and/or family ld1 updated on plan of care and expected duration. Pain level reassessed. 17:00 Reassessment: Patient appears in no apparent distress at this time. Patient and/or ld1 family updated on plan of care and expected duration. Pain level reassessed. ERP at bedside - central line placement. Vital Signs: 14:16 Weight 140.16 kg; ld1 14:28 Pulse 83; Resp 21; Pulse Ox 96% on 4 lpm NC; Height 5 ft. 8 in. (172.72 cm); Pain 0/10; ld1 14:45 Temp 97.7(O); ld1 14:54 BP 179 / 126; Pulse 82; Resp 16; Pulse Ox 100% on BiPAP; ld1 16:20 BP 79 / 44; Pulse 82; Resp 16; Pulse Ox 100% on BiPAP; ld1 16:40 BP 92 / 45; Pulse 72; Resp 13; Pulse Ox 100% on BiPAP; ld1 17:05 BP 81 / 49; Pulse 80; Resp 13; Pulse Ox 89% on BiPAP; ld1 17:25 BP 79 / 38; Pulse 78; Resp 19; Pulse Ox 98% on BiPAP; ld1 17:25 BP 85 / 38; Pulse 81; Resp 16; Pulse Ox 100% on BiPAP; ld1 17:59 Temp 97.9(O); ld1 14:28 Body Mass Index 46.98 (140.16 kg, 172.72 cm) ld1 ED Course: 14:15 Patient arrived in ED. bd 14:18 Jacek Medina MD is Attending Physician. sp3 14:18 Triage completed. ld1 14:18 Arm band placed on right wrist. ld1 14:20 Patient has correct armband on for positive identification. Placed in gown. Bed in low ld1 position. Call light in reach. Side rails up X2. childhood development teacher on. Pulse ox on. NIBP on. Door closed. Noise minimized. 14:21 Anya Park, RN is Primary Nurse. ld1 14:28 Inserted saline lock: 20 gauge in left antecubital area, using aseptic technique. Blood ld1 collected. 14:39 EKG done, by ED staff, reviewed by Jacek Medina MD. em1 15:04 CXR XRAY In Process Unspecified. EDMS 15:47 Ezequiel Tafoya is Hospitalizing Provider. sp3 16:00 Notified ED physician of Notified primary nurse of vital signs. ld1 16:33 Watkins cath inserted, using sterile technique, 16 Fr., by nd, balloon inflated, to ld1 gravity drainage, Patient tolerated well. 16:34 SARS RAPID Sent. ld1 17:21 Assisted provider with central line placement. Set up central line tray. Triple lumen ld1 line placed in right subclavian. Line placed by Jcaek Medina MD Placement verified by CXR, blood return, Dressed with Tegaderm, Blood was collected. Patient tolerated well. 19:44 Primary Nurse role handed off by Anya Park RN 19:45 Mic Pradhan, RN is Primary Nurse. as6 Administered Medications: No medications were administered Medication: 14:20 VIS not applicable for this client. ld1 Outcome: 15:48 Decision to Hospitalize by Provider. sp3 02/16 01:25 Patient left the ED. kd3 Signatures: Dispatcher Med[employer] EDMS Nia Gong Eric em1 Anya Park, RN RN ld1 Soha Merida Jacek Medina MD MD sp3 Mic Pradhan RN RN as6 Minoo Maxwell RN RN kd3 Corrections: (The following items were deleted from the chart) 02/15 17:22 14:20 No provider procedures requiring assistance completed. ld1 ld1 17:59 17:37 Temp 97.7F Oral; ld1 ld1
[2022-02-15] MEDS ORDERED: NA CHLORIDE 0.9% 500 ML ONE (16:40)
[2022-02-15] MEDS ORDERED: SOD BICARB 8.4% PEDI 10 mEq/10 mL SYR IVP ONE (16:40)
[2022-02-15] MEDS ORDERED: SODIUM BICARB 50 MEQ/50ML VIAL ONE (16:42)
[2022-02-15] MEDS ORDERED: ONDANSETRON 4 MG/2 ML VIAL IV PRN (16:44)
[2022-02-15 16:48] LABS: SARS-CoV-2 Antigen Rapid Res Negative (Negative)
--- NOTE | 2022-02-15 16:58 | P.HP ---
Certification for Inpatient Patient admitted to: Inpatient With expected LOS: >2 Midnights Patient will require the following post-hospital care: None Practitioner: I am a practitioner with admitting privileges, knowledge of patient current condition, hospital course, and medical plan of care. Services: Services provided to patient in accordance with Admission requirements found in Title 42 Section 412.3 of the Code of Federal Regulations Patient History Date of Service: 02/15/22 Reason for admission: Respiratory distress; metabolic acidosis; acute kidney injury History of Present Illness: Patient is a 61-year-old female who was at a hospital on February 07, 2022 and was intubated. Patient was transferred to [facility]. Patient was there until this past February 10. Patient was discharged after she stated that she was diuresed aggressively. She was sent home with diuretics. They do not have the home medications available at this time. She comes in with acute renal failure with severe metabolic acidosis and respiratory distress. The patient had a venous blood gas done which showed a pH of 7.2 PCO2 of 70s and venous oxygen of 30. Patient's bicarb was 30. Normal bicarb is in the 40s. Patient will be admitted to the hospital and will start on IV fluids. Patient will have a bicarb drip given. We have discussed with the emergency room physician regarding central line placement as patient is hemodynamically stable. Patient is not really a candidate for a PICC line placement because of her acute renal failure. Renal ultrasound and echocardiogram are pending. I discussed the case with nephrology and pulmonary as well. Patient will be accepted to the ICU as long as we have ICU beds available. Allergies ibuprofen Allergy (Intermediate, Verified 07/14/14 22:01) Hives/Rash surgical tape Allergy (Uncoded 05/11/16 08:10) Unknown Home Medications: Furosemide [Lasix*] 20 mg PO DAILY 07/09/17 Gabapentin [Neurontin*] 300 mg PO BID 07/09/17 Metformin HCl 500 mg PO BID 07/09/17 Metoprolol Tartrate [Lopressor*] 50 mg PO BID 07/09/17 Tramadol HCl [Ultram] 50 mg PO BID PRN 07/09/17 Zolpidem Tartrate [Ambien*] 10 mg PO BEDTIME 07/09/17 buPROPion HCL [Bupropion HCl] 100 mg PO DAILY 07/09/17 lisinopriL [Lisinopril] 20 mg PO DAILY 07/09/17 acetaZOLAMIDE [Diamox*] 125 mg PO BID #60 tab 07/11/17 - Past Medical/Surgical History Diabetic: Yes -: HTN -: CHRONIC BACK PAIN -: Type 2 diabetes -: Tobacco abuse -: obstructive sleep apnea -: obesity -: anxiety -: back pain -: oxygen use at night -: Laparoscopic cholecystectomy - Family History Mother Notes: DENIES ANY FAMILY HISTORY - Social History Alcohol use: Yes CD- Drugs: Yes Caffeine use: Yes Review of Systems 10-point ROS is otherwise unremarkable Physical Examination - Vital Signs Temperature: 98 F Blood Pressure: 70/40 Pulse: 100 Respirations: 26 Pulse Ox (%): 90 - Physical Exam General: Moderate distress, Other (Patient is lethargic but responsive.) HEENT: Atraumatic, PERRLA, Mucous membr. moist/pink, EOMI, Sclerae nonicteric Neck: Supple, 2+ carotid pulse no bruit, No LAD, Without JVD or thyroid abnormality Respiratory: Diminished Cardiovascular: Regular rate/rhythm, Normal S1 S2 Gastrointestinal: Normal bowel sounds, Soft and benign, Non-distended, No tenderness Musculoskeletal: No clubbing, No swelling, No tenderness Integumentary: No rashes Neurological: Normal speech, Normal tone, Sensation intact, Cranial nerves 3-12 intact, Normal affect, Abnormal gait, Abnormal strength Lymphatics: No axilla or inguinal lymphadenopathy - Studies Laboratory Data (last 24 hrs) 02/15/22 14:25: WBC 11.30 H, Hgb 11.6 L, Hct 38.2, Plt Count 236 02/15/22 14:25: Sodium 135 L, Potassium 5.2 H, BUN 94 H, Creatinine 6.08 H*, Glucose 131 H Assessment & Plan - Problems (Diagnosis) (1) Acute kidney injury Current Visit: Yes Status: Acute (2) Obesity hypoventilation syndrome Current Visit: Yes Status: Acute (3) High anion gap metabolic acidosis Current Visit: Yes Status: Acute (4) Lactic acidosis Current Visit: Yes Status: Acute (5) Acute respiratory distress Current Visit: Yes Status: Acute (6) Dependence on non-invasive ventilation Current Visit: Yes Status: Acute (7) Pulmonary edema Current Visit: Yes Status: Acute (8) Hypotension Current Visit: Yes Status: Acute (9) Sepsis Current Visit: Yes Status: Acute - Plan Plan: 1. IV fluids-bicarb drip as patient with a metabolic acidosis and hypotensive 2. IV antibiotic therapy(patient was hypotensive, tachypneic, tachycardic, and with elevated lactic acid- Type A lactic acidosis); cultures pending. Broad- spectrum antibiotic and patient just discharged from the hospital 3. Hopefully, we can get blood pressure up with hydration. Hopefully we can refrain from using vasopressors to prevent tissue hypoxemia 4. Nephrology and pulmonary consultation 5. Echocardiogram and renal ultrasound 6. BiPAP support-repeat ABGs 7. Renal diet at the time 8. Current interventions that will be needed immediately will be central line placement-hemodynamic support, Watkins catheter-renal failure and strict I's and O's, and BiPAP support for patient's respiratory acidosis. We may need intubation if patient's neurologic status worsens and she is no longer able to protect her airway. Otherwise we will continue with using BiPAP 9. GI and DVT prophylaxis - Advance Directives Does patient have a Living Will: No Does patient have a Durable POA for Healthcare: No
[2022-02-15] MEDS ORDERED: NA CHLORIDE 0.9% 1,000 ML IV SCH (17:00)
[2022-02-15] MEDS ORDERED: SODIUM CHLORIDE 0.9% 10ML INJ IV PRN (17:23)
[2022-02-15] MEDS ORDERED: HYDROCORTISONE SUC 100 MG INJ ONE (17:38)
[2022-02-15] MEDS ORDERED: NA CHLORIDE 0.9% 100 ML IV ONE (17:39)
[2022-02-15] MEDS ORDERED: NA CHLORIDE 0.9% 1,000 ML ONE (17:39)
[2022-02-15] MEDS ORDERED: Levofloxacin500mg IV 500 MG/100 ML BAG IV ONE ×2 (17:39→18:00)
[2022-02-15] MEDS ORDERED: CEFEPIME 1 GM/VIAL ONE (17:39)
[2022-02-15] MEDS ORDERED: D5W 1,000 ML with NA BICARB 8.4% 100 MEQ IV SCH ×2 (18:00)
[2022-02-15] MEDS: CEFEPIME 1 GM in NA CHLORIDE 0.9% 100 ML IV SCH (18:00)
[2022-02-15] MEDS ORDERED: HYDROCORTISONE SUC 100 MG INJ IV ONE (18:00)
--- NOTE | 2022-02-15 18:03 | RAD REPORT ---
EXAM DESCRIPTION: US - Renal Ultrasound-Complete - 02/15/2022 5:46 pm CLINICAL HISTORY: NALINI COMPARISON: CT ABD PELVIS W CONTRAST dated 07/14/2014 FINDINGS: Both kidneys are normal in size, shape and echotexture. The right kidney measures 10.1 cm. Grossly, no hydronephrosis, focal mass or perinephric fluid. Somew hat limited view of the right kidney as the patient was intubated and unable to reposition. The left kidney measures 10.3 cm. No hydronephrosis, focal mass or perinephric fluid. Bladder decompressed, not well assessed. IMPRESSION: No evidence of hydronephrosis. Portions of the right kidney obscured by bowel and unable to reposition the patient due to sedation.
--- NOTE | 2022-02-15 18:10 | RAD REPORT ---
EXAM DESCRIPTION: RAD - Chest Single View - 02/15/2022 6:01 pm CLINICAL HISTORY: s/p central line placement COMPARISON: C Spine Ap/Lat dated 06/18/2017Chest Single View dated 02/15/2022; Chest Single View dated 02/07/2022; Chest Single View dated 02/07/2022; Chest Single View dated 01/26/2021 FINDINGS: Lines: Right IJ approach central venous line with tip overlying the right atrium. Lungs: Widespread pulmonary opacities. Pacemaker. Pleural: Small effusions difficult to exclude. Cardiac: Cardiomegaly. Mediastinum: Within normal limits. Bones: No acute fractures. Other: None IMPRESSION: 1. Right IJ approach central venous line with tip overlying the right atrium. No pneumot horax. 2. Decreased lung volumes and possible increasing pulmonary edema.
[2022-02-15] MEDS ORDERED: NOREPINEPHRINE BITARTRATE/D5W 4 MG/250 ML BAG IV ONE (18:16)
[2022-02-15] MEDS: NOREPINEPHRINE BITARTRATE/D5W 4 MG/250 ML BAG IV PRN (18:23)
[2022-02-15 18:38] LABS: Magnesium 2.6 mg/dL (1.6-2.4); Potassium 5.5 mmol/L (3.5-5.1); Thyroid Stimulating Hormone 0.573 uIU/mL (0.358-3.740)
[2022-02-15 19:15] LABS: ALT/SGPT 27 U/L (13-56); AST/SGOT 35 U/L (15-37); Albumin 2.9 g/dL (3.4-5.0); Alkaline Phosphatase 74 U/L (45-117); Bilirubin Total 0.2 mg/dL (0.2-1.0); Protein, Total 7.2 g/dL (6.4-8.2)
[2022-02-15 19:16] LABS: Bilirubin Direct < 0.1 mg/dL (0-0.2)
[2022-02-15 19:39] LABS: Protime INR 0.96
[2022-02-15] MEDS: HEPARIN 5000 UNIT/ML 1 ML VIAL SQ SCH (21:00)
[2022-02-15] MEDS: PANTOPRAZOLE 40 MG INJ IVP SCH (21:00)
[2022-02-15] MEDS ORDERED: HEPARIN 5000 UNIT/ML 1 ML VIAL ONE (23:38)
[2022-02-15] MEDS ORDERED: PANTOPRAZOLE 40 MG INJ ONE (23:38)
[2022-02-15] MEDS ORDERED: FENTANYL CITR 100 MCG/2 ML ONE (23:57)
[2022-02-16] MEDS: FENTANYL CITR 100 MCG/2 ML IV PRN (00:10)
[2022-02-16] MEDS ORDERED: LORazepam 2 MG/ML VIAL IV PRN (00:43)
[2022-02-16] MEDS: NOREPINEPHRINE BITARTRATE/D5W 4 MG/250 ML BAG IV PRN ×4 (01:34→14:00)
[2022-02-16 05:27] LABS: Absolute Lymphocytes (CBC) 1.4 K/uL (0.7-4.9); Hematocrit 36.8 % (36.0-45.0); Lymphocytes % 10.9 % (15.3-44.8); MCV 86.2 fL (80-100); MPV 8.7 fL (7.6-11.3); RBC Red Blood Cell Count 4.27 M/uL (3.86-4.86)
[2022-02-16 05:43] LABS: Albumin 2.8 g/dL (3.4-5.0); Bilirubin Total 0.2 mg/dL (0.2-1.0); Protein, Total 7.3 g/dL (6.4-8.2); Troponin High Sensitivity 37.6 pg/mL (<58.9)
[2022-02-16] MEDS ORDERED: VANCOMYCIN 1 GM in NA CHLORIDE 0.9% 250 ML IVPB SCH (08:04)
[2022-02-16] MEDS ORDERED: dexAMETHasone 10 MG/ML VIAL IV ONE (08:04)
[2022-02-16] MEDS: ALBUTEROL 2.5 MG/3 ML NEB SOL IH SCH ×3 (08:05→20:10)
--- NOTE | 2022-02-16 08:13 | P.CNS ---
Date of Consult: 02/16/22 Reason for Consult: Respiratory failure shock Chief Complaint: Respiratory distress; metabolic acidosis; acute kidney injury History of Present Illness: Patient is 61 years of age was admitted intubated and was transferred to [facility] with his discharge diuresed him back again with acute renal failure metabolic acidosis respiratory distress started on bicarb drip with IV fluid patient is very alert responsive cooperative on BiPAP vasopressors renal func tion is improving/patient is very alert responsive cooperative oriented x3 currently she was taking diuretics at home Allergies ibuprofen Allergy (Intermediate, Verified 07/14/14 22:01) Hives/Rash surgical tape Allergy (Uncoded 05/11/16 08:10) Unknown Home Medications: Furosemide [Lasix*] 20 mg PO DAILY 07/09/17 Gabapentin [Neurontin*] 300 mg PO BID 07/09/17 Metformin HCl 500 mg PO BID 07/09/17 Metoprolol Tartrate [Lopressor*] 50 mg PO BID 07/09/17 Tramadol HCl [Ultram] 50 mg PO BID PRN 07/09/17 Zolpidem Tartrate [Ambien*] 10 mg PO BEDTIME 07/09/17 buPROPion HCL [Bupropion HCl] 100 mg PO DAILY 07/09/17 lisinopriL [Lisinopril] 20 mg PO DAILY 07/09/17 acetaZOLAMIDE [Diamox*] 125 mg PO BID #60 tab 07/11/17 - Past Medical/Surgical History Diabetic: Yes -: HTN -: CHRONIC BACK PAIN -: Type 2 diabetes -: Tobacco abuse -: obstructive sleep apnea -: obesity -: anxiety -: back pain -: oxygen use at night -: Laparoscopic cholecystectomy - Family History Mother Notes: DENIES ANY FAMILY HISTORY - Social History Smoking Status: Current every day smoker Alcohol use: Yes CD- Drugs: Yes Caffeine use: Yes Review of Systems 10-point ROS is otherwise unremarkable General: Weakness Respiratory: Shortness of Breath Physical Examination Temp Pulse Resp BP Pulse Ox 97.6 F 85 20 124/62 98 02/16/22 04:00 02/16/22 06:45 02/16/22 06:45 02/16/22 06:45 02/16/22 06:45 General: Alert, In no apparent distress, Oriented x3 Respiratory: Clear to auscultation bilaterally, Friction rub Cardiovascular: Regular rate/rhythm, Normal S1 S2, Edema (Minimal edema) Gastrointestinal: Soft and benign Integumentary: No rashes, No breakdown Laboratory Data (last 24 hrs) 02/15/22 14:25: WBC 11.30 H, Hgb 11.6 L, Hct 38.2, Plt Count 236 02/15/22 14:25: Sodium 135 L, Potassium 5.2 H, BUN 94 H, Creatinine 6.08 H*, Glucose 131 H - Problems (1) Shock Current Visit: Yes Status: Acute Plan: Patient is 61 years of age admitted with respiratory failure shock acute renal failure probably likely volume depletion continue with IV fluids renal function is improved 1 dose of Decadron serum cortisol level add vancomycin he is at risk for hospital-acquired infections she recently was discharged from [facility] serum cortisol level is normal procalcitonin is mildly elevated continue with IV fluid boluses increase the rate of IV fluids changed to normal saline chest x- ray shows some cardiomegaly may be some infiltrates in the left side possibly volume overload or an infection
[2022-02-16] MEDS ORDERED: NA CHLORIDE 0.9% 1,000 ML IV SCH (09:00)
[2022-02-16] MEDS ORDERED: NA CHLORIDE 0.9% 500 ML IV SCH (09:00)
[2022-02-16] MEDS ORDERED: D5W 1,000 ML with NA BICARB 8.4% 100 MEQ IV SCH ×2 (09:00)
[2022-02-16] MEDS ORDERED: VANCOMYCIN 2 GM in NA CHLORIDE 0.9% 500 ML IVPB SCH (09:00)
[2022-02-16] MEDS: CEFEPIME 1 GM in NA CHLORIDE 0.9% 100 ML IV SCH (09:08)
[2022-02-16] MEDS: PANTOPRAZOLE 40 MG INJ IVP SCH ×2 (09:08→20:41)
[2022-02-16] MEDS: HEPARIN 5000 UNIT/ML 1 ML VIAL SQ SCH ×2 (09:24→20:41)
[2022-02-16 10:03] LABS: Specific Gravity 1.008 (1.005-1.030); Transitional Epithelial <5 /HPF (None Seen); Urine Bacteria None Seen /HPF (<20); Urine Bilirubin NEGATIVE (Negative); Urine Blood 3+ (OVER) (Negative); Urine Clarity Turbid (Clear); Urine Color Colorless (Yellow); Urine Crystals Unidentified Few /HPF (None Seen); Urine Glucose 4+ (Negative); Urine Mucus 2+ /HPF (None Seen); Urine Protein TRACE (Negative); Urine RBC >50 /HPF (None Seen); Urine Urobilinogen Normal (Normal)
--- NOTE | 2022-02-16 14:23 | EKG ---
Test Date: 2022-02-15 Test Time: 14:28:07 Patient Care Specialist: IZAIAH MEASUREMENT RESULTS: Intervals: Rate: 81 [place]: 220 QRSD: 176 QT: 406 QTc: 471 [place]: P: [place]: 220 QRS: 98 T: -56 INTERPRETIVE STATEMENTS: Sinus rhythm with 1st degree AV block Right bundle branch block Inferior infarct, age undetermined T wave abnormality, consider lateral ischemia Abnormal ECG Compared to ECG 02/07/2022 15:01:35 First degree AV block now present Myocardial infarct finding now present T-wave abnormality still present Possible ischemia still present Electronically Signed On 02-16-22 14:21:30 [employer]MENT [employer] by James Peña
--- NOTE | 2022-02-16 14:25 | ECHO ---
HEIGHT: 5 ft 8 in WEIGHT: 308 lb 0 oz DATE OF STUDY: 02/16/[address]: Adriano Manriquez MD 2-DIMENSIONAL: YES M.MODE: YES DOPPLER: YES COLOR FLOW: YES TDS: YES PORTABLE: CHRIS DEFINITY: BUBBLE STUDY: DIAGNOSIS: CONGESTIVE HEART FAILURE CARDIAC HISTORY: CATHERIZATION: SURGERY: PROSTHETIC VALVE: PACEMAKER: MEASUREMENTS (cm) DIASTOLIC (NORMALS) SYSTOLIC (NORMALS) IVSd 1.4 (0.6-1.2) LA Diam 3.9 (1.9-4.0) LVEF 69% LVIDd 4.3 (3.5-5.7) LVIDs 2.6 (2.0-3.5) %FS 39% LVPWd 1.9 (0.6-1.2) Ao Diam 2.7 (2.0-3.7) 2 DIMENSIONAL ASSESSMENT: RIGHT ATRIUM: NORMAL LEFT ATRIUM: ENLARGED RIGHT VENTRICLE: PACEMAKER WIRE LEFT VENTRICLE: NORMAL TRICUSPID VALVE: MODERATE TRICUSPID REGURGITATION MITRAL VALVE: NOT WELL SEEN PULMONIC VALVE: NORMAL AORTIC VALVE: NORMAL PERICARDIAL EFFUSION: NONE AORTIC ROOT: NORMAL LEFT VENTRICULAR WALL MOTION: NORMAL DOPPLER/COLOR FLOW: SEE BELOW COMMENTS: 1. VERY POOR STUDY (LIMITED WINDOWS) 2. OVERALL LEFT VENTRICULAR EJECTION FRACTION IS NORMAL, GREATER THAN 60% 3. SEVERE PULMONARY HYPERTENSION WITH RIGHT VENTRICULAR SYSTOLIC PRESSURE GREATER THAN 60 mmHg AND RIGHT ATRIAL PRESSURE IS GREATER THAN 20 mmHg 4. MODERATE TO SEVERE TRICUSPID REGURGITATION TECHNOLOGIST: YUMIKO ALFONSO
--- NOTE | 2022-02-16 15:44 | P.CNS ---
Date of Consult: 02/16/22 Reason for Consult: ARF Chief Complaint: Respiratory distress; metabolic acidosis; acute kidney injury History of Present Illness: Patient with history of hypertension, COPD, CHF status post recent hospitalization with acute pulmonary edema requiring aggressive diuresis during ICU stay for respiratory failure requiring intubation. Patient creatinine was 0.9-1.2 at the time of discharge. She presented now because of weakness noted with creatinine elevation to 6.0. Renal consulted for azotemia. She has been started on gentle IV fluid and her creatinine improving to 4.0 now. She was also hypotensive and requiring IV pressors. Allergies ibuprofen Allergy (Intermediate, Verified 07/14/14 22:01) Hives/Rash surgical tape Allergy (Uncoded 05/11/16 08:10) Unknown Home Medications: Furosemide [Lasix*] 20 mg PO DAILY 07/09/17 Gabapentin [Neurontin*] 300 mg PO BID 07/09/17 Metformin HCl 500 mg PO BID 07/09/17 Metoprolol Tartrate [Lopressor*] 50 mg PO BID 07/09/17 Tramadol HCl [Ultram] 50 mg PO BID PRN 07/09/17 Zolpidem Tartrate [Ambien*] 10 mg PO BEDTIME 07/09/17 buPROPion HCL [Bupropion HCl] 100 mg PO DAILY 07/09/17 lisinopriL [Lisinopril] 20 mg PO DAILY 07/09/17 acetaZOLAMIDE [Diamox*] 125 mg PO BID #60 tab 07/11/17 - Past Medical/Surgical History Diabetic: Yes -: HTN -: CHRONIC BACK PAIN -: Type 2 diabetes -: Tobacco abuse -: obstructive sleep apnea -: obesity -: anxiety -: back pain -: oxygen use at night -: Laparoscopic cholecystectomy - Family History Mother Notes: DENIES ANY FAMILY HISTORY - Social History Smoking Status: Current every day smoker Alcohol use: Yes CD- Drugs: Yes Caffeine use: Yes Review of Systems 10-point ROS is otherwise unremarkable Physical Examination Temp Pulse Resp BP Pulse Ox 97.5 F 82 17 123/55 L 90 L 02/16/22 08:00 02/16/22 11:45 02/16/22 11:45 02/16/22 11:45 02/16/22 11:45 General: Alert, Oriented x3, Moderate distress, Obese, Other (on high flow 02 ) Neck: Supple, 2+ carotid pulse no bruit Respiratory: Diminished, Crackles/rales Cardiovascular: Normal pulses, Regular rate/rhythm, Normal S1 S2, Edema Gastrointestinal: Normal bowel sounds, Soft and benign, Non-distended Musculoskeletal: No clubbing, No swelling, Swelling Neurological: Normal speech, Cranial nerves 3-12 intact - Problems (1) Acute kidney injury Current Visit: Yes Status: Acute (2) Acute respiratory distress Current Visit: Yes Status: Acute (3) Dependence on non-invasive ventilation Current Visit: Yes Status: Acute (4) High anion gap metabolic acidosis Current Visit: Yes Status: Acute Physician Review Additional Text: Acute kidney injurylikely due to ATN from hypotension with superimposed acute rhabdomyolysis History of CHF Acute rhabdomyolysis History of COPD Hypotension Rule out sepsis Plan Creatinine improving to 4.2 Obtain urine studies for fractional secretion of sodium Likely due to ATN rather than overdiuresis Still elevated BNP of greater than 3800, CXR wih rising pulmonary edema restart Lasix, DC IV fluids Continue to maintain MAP greater than 70 add midodrine tid po 10 mg CK level elevated at greater than 1000, follow daily CK level with diuresis Renally dose all meds Avoid nephrotoxins BMP every 12 Borderline potassium level, avoid lactated Ringer's of potassium continue solutions
[2022-02-16] MEDS ORDERED: FUROSEMIDE 40 MG/4 ML VIAL IV ONE (17:00)
[2022-02-16 17:11] LABS: Blood O2 Saturation 76.4 % (92-98.5)
[2022-02-16 17:12] LABS: Arterial Blood Carboxyhemoglob 1.5 % (0-1.5); Blood Gas Oxyhemoglobin 74.1 % (94-97)
[2022-02-16] MEDS: MIDODRINE HCL 5 MG TABLET PO SCH (17:16)
[2022-02-17] MEDS: MIDODRINE HCL 5 MG TABLET PO SCH ×3 (01:20→16:13)
[2022-02-17] MEDS: ALBUTEROL 2.5 MG/3 ML NEB SOL IH SCH ×4 (01:50→19:45)
[2022-02-17] MEDS: FENTANYL CITR 100 MCG/2 ML IV PRN ×3 (05:18→20:34)
[2022-02-17 05:41] LABS: Albumin 2.6 g/dL (3.4-5.0); Bilirubin Total 0.4 mg/dL (0.2-1.0); Magnesium 1.9 mg/dL (1.6-2.4); Potassium 4.5 mmol/L (3.5-5.1); Protein, Total 6.8 g/dL (6.4-8.2)
--- NOTE | 2022-02-17 06:31 | P.PN ---
Subjective Date of Service: 02/16/22 Subjective: No new changes, No C/O voiced, Improving Review of Systems 10-point ROS is otherwise unremarkable Physical Examination - Vital Signs Temperature: 98 F Blood Pressure: 70/40 Pulse: 100 Respirations: 26 Pulse Ox (%): 90 - Physical Exam General: Alert, In no apparent distress, Oriented x3 Respiratory: Clear to auscultation bilaterally, Normal air movement Cardiovascular: Regular rate/rhythm, Normal S1 S2, Systolic murmur Gastrointestinal: Normal bowel sounds, Soft and benign, Non-distended, No tenderness Musculoskeletal: No clubbing, No swelling, No tenderness Neurological: Sensation intact, Cranial nerves 3-12 intact, Abnormal strength - Studies Medications List Reviewed: Yes Assessment & Plan - Problems (Diagnosis) (1) Acute kidney injury Current Visit: Yes Status: Acute (2) Obesity hypoventilation syndrome Current Visit: Yes Status: Acute (3) High anion gap metabolic acidosis Current Visit: Yes Status: Acute (4) Lactic acidosis Current Visit: Yes Status: Acute (5) Acute respiratory distress Current Visit: Yes Status: Acute (6) Dependence on non-invasive ventilation Current Visit: Yes Status: Acute (7) Pulmonary edema Current Visit: Yes Status: Acute (8) Hypotension Current Visit: Yes Status: Acute (9) Sepsis Current Visit: Yes Status: Acute - Plan Plan: Continue with POC as mentioned below: 1. IV fluids-bicarb drip as patient with a metabolic acidosis and hypotensive; [place] in the AM 2. IV antibiotic therapy(patient was hypotensive, tachypneic, tachycardic, and with elevated lactic acid- Type A lactic acidosis); cultures pending. Broad- spectrum antibiotic as patient just discharged from the hospital 3. Hopefully, we can get blood pressure up with hydration. On Levophed 4. Nephrology and pulmonary consultation 5. Echocardiogram and renal ultrasound with severe pulm HTN; Severe TR; Renal US WNL 6. BiPAP support prn 7. Renal diet at the time 8. GI and DVT prophylaxis - Advance Directives Does patient have a Living Will: No Does patient have a Durable POA for Healthcare: No
--- NOTE | 2022-02-17 06:32 | P.PN ---
Date of Service: 02/17/22 Subjective Patient is clinically doing well. Patient denies any new complaints. She actually want to go home today. She is oxygenating much better. Renal function has improved. Anticipate discharge home tomorrow. She has home oxygen and she has a noninvasive ventilator as well. Review of Systems 10-point ROS is otherwise unremarkable Physical Examination - Vital Signs reviewed - Physical Exam General: Alert, In no apparent distress, Oriented x3 Respiratory: Clear to auscultation bilaterally, Normal air movement Cardiovascular: Regular rate/rhythm, Normal S1 S2, Systolic murmur Gastrointestinal: Normal bowel sounds, Soft and benign, Non-distended, No tenderness Musculoskeletal: No clubbing, No swelling, No tenderness Neurological: Sensation intact, Cranial nerves 3-12 intact, Abnormal strength - Studies Medications List Reviewed: Yes Assessment & Plan - Problems (Diagnosis) (1) Acute kidney injury Current Visit: Yes Status: Acute (2) Obesity hypoventilation syndrome Current Visit: Yes Status: Acute (3) High anion gap metabolic acidosis Current Visit: Yes Status: Acute (4) Lactic acidosis Current Visit: Yes Status: Acute (5) Acute respiratory distress Current Visit: Yes Status: Acute (6) Dependence on non-invasive ventilation Current Visit: Yes Status: Acute (7) Pulmonary edema Current Visit: Yes Status: Acute (8) Hypotension Current Visit: Yes Status: Acute (9) Sepsis Current Visit: Yes Status: Acute - Plan Continue with POC as mentioned below: 1. IV [id number] IV 2. IV antibiotic therapy; weaned off of vasopressor. Volume status is stabilized 3. Hep-Lock IV 4. Nephrology and pulmonary consultation appreciated 5. Echocardiogram and renal ultrasound with severe pulm HTN; Severe TR; Renal US WNL 6. BiPAP support prn; patient not really wearing at night as she should. We reinforced this with her. 7. Renal diet at the time 8. GI and DVT prophylaxis - Advance Directives Does patient have a Living Will: No Does patient have a Durable POA for Healthcare: No
[2022-02-17] MEDS: HEPARIN 5000 UNIT/ML 1 ML VIAL SQ SCH ×2 (08:17→20:35)
[2022-02-17] MEDS: FUROSEMIDE 20 MG/ 2ML VIAL IV SCH ×2 (08:17→20:34)
[2022-02-17] MEDS: PANTOPRAZOLE 40 MG INJ IVP SCH ×2 (08:17→20:34)
[2022-02-17] MEDS: CEFEPIME 1 GM in NA CHLORIDE 0.9% 100 ML IV SCH (08:17)
[2022-02-17] MEDS: GUAIFENESIN/CODEINE 5ML UCUP PO ONE ×2 (08:17→08:36)
[2022-02-17] MEDS ORDERED: GUAIFENESIN/CODEINE 5ML UCUP PO ONE (08:35)
[2022-02-17] MEDS ORDERED: CEFEPIME 2 GM in NA CHLORIDE 0.9% 100 ML IV SCH (09:00)
[2022-02-17] MEDS ORDERED: Levofloxacin 750mg IV 750 MG/150 ML BAG IV SCH (09:00)
[2022-02-17] MEDS ORDERED: CEFEPIME 1 GM in NA CHLORIDE 0.9% 100 ML IV ONE (09:45)
[2022-02-17] MEDS: ACETAMINOPHEN 500 MG TAB PO PRN ×2 (10:27→21:54)
[2022-02-17] MEDS ORDERED: VANCOMYCIN 1.75 GM in NA CHLORIDE 0.9% 500 ML IVPB SCH (11:00)
[2022-02-17] MEDS ORDERED: FAMOTIDINE 20 MG TAB PO ONE (11:26)
--- NOTE | 2022-02-17 15:12 | P.PN ---
Subjective Date of Service: 02/17/22 Chief Complaint: Respiratory distress; metabolic acidosis; acute kidney injury Subjective: No new changes (making urine) Physical Examination - Vital Signs Temperature: 96.6 F Blood Pressure: 117/65 Pulse: 65 Respirations: 13 Pulse Ox (%): 94 - Physical Exam General: Alert, In no apparent distress, Oriented x3, Mild distress HEENT: Normocephalic Neck: 2+ carotid pulse no bruit, JVD not distended Respiratory: Diminished, Crackles/rales Cardiovascular: Normal pulses, Regular rate/rhythm, Edema Gastrointestinal: Normal bowel sounds, Soft and benign, Non-distended Musculoskeletal: No clubbing, No swelling Integumentary: No rashes, No breakdown Neurological: Normal speech, Normal strength at 5/5 x4 extr, Sensation intact, Cranial nerves 3-12 intact - Studies Medications List Reviewed: Yes Assessment And Plan - Current Problems (Diagnosis) (1) Acute kidney injury Current Visit: Yes Status: Acute (2) Acute respiratory distress Current Visit: Yes Status: Acute (3) Dependence on non-invasive ventilation Current Visit: Yes Status: Acute (4) High anion gap metabolic acidosis Current Visit: Yes Status: Acute Physician Review: Patient Assessed, Agree with Above Assessment and Plan Physician Review Additional Text: 02/17/22 15:11 NALINI - due to ATN Fluid overload /pleural effusions Hypotension Acute resp failure r/o sepsis plan cr improving to 1.15 9 from adm cr 6.2) - continue diuretics to help with resp status -avoid nephrotoxins -renally dose all meds
[2022-02-17] MEDS ORDERED: Levofloxacin 250mg IV 250 MG/50 ML BAG IV SCH (18:00)
[2022-02-17] MEDS ORDERED: CEFEPIME 2 GM VIAL ONE (20:32)
[2022-02-17] MEDS: CEFEPIME 2 GM in NA CHLORIDE 0.9% 100 ML IV SCH (20:33)
[2022-02-17] MEDS ORDERED: NA CHLORIDE 0.9% 100 ML ONE (20:33)
[2022-02-17] MEDS: DOXYCYCLINE 100 MG in NA CHLORIDE 0.9% 100 ML IVPB SCH (20:36)
[2022-02-18] MEDS: MIDODRINE HCL 5 MG TABLET PO SCH ×2 (00:21→08:08)
[2022-02-18] MEDS: HYDROCODONE/APAP 7.5/325 MG TAB PO PRN ×2 (00:56→05:57)
[2022-02-18] MEDS: ALBUTEROL 2.5 MG/3 ML NEB SOL IH SCH ×2 (02:00→10:00)
[2022-02-18 05:27] VITALS: TEMP 97
[2022-02-18 05:42] LABS: Albumin 3.1 g/dL (3.4-5.0); Bilirubin Total 0.6 mg/dL (0.2-1.0); Potassium 4.2 mmol/L (3.5-5.1); Protein, Total 7.8 g/dL (6.4-8.2)
[2022-02-18 06:20] VITALS: BMI 44.6
[2022-02-18] MEDS: FUROSEMIDE 20 MG/ 2ML VIAL IV SCH ×2 (08:06→09:00)
[2022-02-18] MEDS: CEFEPIME 2 GM in NA CHLORIDE 0.9% 100 ML IV SCH (08:06)
[2022-02-18] MEDS: HEPARIN 5000 UNIT/ML 1 ML VIAL SQ SCH (08:06)
[2022-02-18] MEDS: PANTOPRAZOLE 40 MG INJ IVP SCH (08:08)
[2022-02-18] MEDS: DOXYCYCLINE 100 MG in NA CHLORIDE 0.9% 100 ML IVPB SCH (08:09)
[2022-02-18] MEDS ORDERED: Magnesium Sulfate 2gm IVPB 2 G/50 ML BAG IV ONE ×2 (09:57→11:00)
[2022-02-18 10:03] VITALS: BP 117/64
[2022-02-18 10:21] VITALS: O2SAT 100
--- NOTE | 2022-02-18 11:45 | P.PN ---
Subjective Date of Service: 02/18/22 Chief Complaint: COPD status of diuresis And is doing great she is feeling better she is eating talking communicating very jovial denies any shortness of breath probably over diuresed her kidney function is now normal there is no evidence of active ongoing sepsis Review of Systems Unremarkable Physical Examination - Vital Signs Temperature: 97 F Blood Pressure: 117/64 Pulse: 84 Respirations: 20 Pulse Ox (%): 96 - Physical Exam General: Alert, Oriented x3 Respiratory: Clear to auscultation bilaterally, Diminished Cardiovascular: No edema, Normal S1 S2 - Studies Medications List Reviewed: Yes Assessment And Plan - Current Problems (Diagnosis) (1) Pulmonary hypertension Current Visit: Yes Status: Acute Plan: Patient has severe pulmonary hypertension I suspect is secondary to diastolic dysfunction and was apparently overdiuresis developed acute renal failure doing much better changed to p.o. spironolactone continue to monitor may need sildenafil at a later date patient has bronchodilators at home has a history of sleep apnea vies to use an CPAP daily signs oxygenation satisfactory with Lasix as needed stable for discharge follow-up with me next week patient has bronchodilators at home no evidence of active sepsis Physician Review: Patient Assessed, Agree with Above Assessment and Plan
[2022-02-19] MEDS ORDERED: SPIRONOLACTONE 25 MG TABLET PO SCH (09:00)
--- NOTE | 2022-02-19 17:53 | P.PN ---
Subjective Date of Service: 02/18/22 Chief Complaint: COPD status of diuresis Subjective: No new changes Physical Examination - Vital Signs Temperature: 97 F Blood Pressure: 117/64 Pulse: 84 Respirations: 20 Pulse Ox (%): 96 - Physical Exam General: Oriented x3 HEENT: Atraumatic, Normocephalic Neck: Supple Respiratory: Normal air movement, Diminished Cardiovascular: Regular rate/rhythm, Normal S1 S2, Edema Musculoskeletal: No clubbing, Swelling Integumentary: No rashes Neurological: Normal strength at 5/5 x4 extr, Cranial nerves 3-12 intact - Studies Medications List Reviewed: Yes Assessment And Plan - Current Problems (Diagnosis) (1) Acute kidney injury Status: Acute (2) Acute respiratory distress Status: Acute (3) Dependence on non-invasive ventilation Status: Acute (4) High anion gap metabolic acidosis Status: Acute Physician Review: Patient Assessed, Agree with Above Assessment and Plan Physician Review Additional Text: 02/17/22 15:11 NALINI - due to ATN Fluid overload /pleural effusions Hypotension Acute resp failure r/o sepsis plan cr improving - continue diuretics to help with resp status -avoid nephrotoxins -renally dose all meds
== END 2022-02-18 13:25 | disposition home or self-care (01) | DRG 871 ==
LOC: ER 14:09 → ERHOLD 16:44 → 3RD-ICU 02-16 00:10
PROVIDERS: ADMIT Hospitalist; ATTEND Hospitalist
PROC: 5A09457 Assistance with Respiratory Ventilation, 24-96 Consecutive Hours, Continuous Positive Airway Pressure (ICD-10-PCS; principal; 2022-02-15)
PROC: 02H633Z Insertion of Infusion Device into Right Atrium, Percutaneous Approach (ICD-10-PCS; 2022-02-15)
DX: A41.9 Sepsis, unspecified organism (principal); I50.31 Acute diastolic (congestive) heart failure; J96.01 Acute respiratory failure with hypoxia; N17.9 Acute kidney failure, unspecified; Z68.42 Body mass index [BMI] 45.0-49.9, adult; E87.21 Acute metabolic acidosis; M62.82 Rhabdomyolysis; E66.2 Morbid (severe) obesity with alveolar hypoventilation; R65.20 Severe sepsis without septic shock; I11.0 Hypertensive heart disease with heart failure; I44.0 Atrioventricular block, first degree; E11.9 Type 2 diabetes mellitus without complications; G89.29 Other chronic pain; M54.9 Dorsalgia, unspecified; I45.10 Unspecified right bundle-branch block; I27.20 Pulmonary hypertension, unspecified; J44.9 Chronic obstructive pulmonary disease, unspecified; R34 Anuria and oliguria; F17.200 Nicotine dependence, unspecified, uncomplicated; Z95.0 Presence of cardiac pacemaker; Z88.8 Allergy status to other drugs, medicaments and biological substances; Z99.89 Dependence on other enabling machines and devices; Z90.49 Acquired absence of other specified parts of digestive tract; Z91.048 Other nonmedicinal substance allergy status; Z79.899 Other long term (current) drug therapy
CPT/HCPCS: 36415; 51702; 71045; 76770; 80048; 80053; 80076; 80202; 81001; 82533; 82550; 82570; 82805; 83605; 83735; 83880; 84145; 84300; 84439; 84443; 84484; 85025; 85610; 85730; 87040; 87086; 87088; 87811; 93005; 93306; 94002; 94003; 94640; 94660; 97116; 97161; 97530; 99285; C9113; J0692; J1100; J1644; J1720; J1940; J3010; J3370; J3475; J7030; J7040; J7613

== ENCOUNTER 2022-06-09 03:44 | Emergency (ER) | payer OTHER ==
--- OUTSIDE RECORDS SUMMARY | 2022-06-09 03:49 | XMS REPORT | Continuity of Care Document ---
:1960 Author Organization [facility] t Address [address] [place] [address] [place] [id number] Care Team Providers Name Role Phone SAMM MONROE Attending Clinician Unavailable Jacky Morgan RN Attending Clinician Unavailable Sima Beverly Attending Clinician Unavailable Samm Monroe MD Attending Clinician Merchant MESSINA, Patricia Tinsley Attending Clinician [phone] Zeinab Nova MD Attending Clinician Rhea Schmidt MD Attending Clinician [phone] Felisa MESSINA, Kkio Abrams Attending Clinician RHEA SCHMIDT Attending Clinician Unavailable ARMIDA GIBSON Attending Clinician Unavailable DALY PENN Attending Clinician Unavailable SAMM MONROE Admitting Clinician Unavailable GRISEL GARCIA Admitting Clinician Unavailable Payers Payer Name Policy Type Policy Number Effective Date Expiration Date Danielle SMITH [id number] 2020 00:00:00 Problems Condition Condition Condition Status Onset Resolution Last Treating Co mments Source Name Details Category Date Date Treatment Clinician Date Respirator Respirator Disease Recurre [facility] failure [facility] Hypertensi Hypertensi Disease Recurre 2020-[address] [facility] [address] [facility] nce 03[facility]29 [facility] Type 2 Type 2 Disease Recurre 2020-[address] [facility] [address] diabetes diabetes nce 2 [facility] mellitus mellitus 00:00: Medica l 00 Center Diabetic Diabetic Disease Recurre 2020-[address] neuropathy neuropathy nce 2 [facility] 00:[facility]: [facility] 00 Center Tobacco Tobacco Disease Recurre 2020-[address] [facility] abuse abuse nce 03-29 [facility] Chronic Chronic Disease Recurre 2020-[address] respirator respirator nce 2 [facility] y failure y failure 00:00: Medi yung with with 00 Center hypoxia hypoxia AV block AV block Disease Active 2020-02 [facility] Center Allergies, Adverse Reactions, Alerts Allergy Allergy Status Severity Reaction(s) Onset Inactive Treating Comm ents Source Name Type Date Date Clinician Adhesive Propensi Active Anaphylaxis 2022- [facility] - [facility] adverse 00:00: Medical reaction 00 Center s Ibuprofe Propensi Active Anaphylaxis [facility] n ty to 02-08 [facility] adverse 00:00: Medical reaction 00 Center s ADHESIVE Allergy Active High Anaphylaxis 2022-[address] TAPE 1-04 [facility] 00:00: Medical 00 [place] IBUPROFE Allergy Active High Anaphylaxis 2022-[address] N -04 [facility] 00:00: Medical 00 [place] IBUPROFE Allergy Active Low Itching 2020-02 [facility] N-OXYCOD 2- ONE 00:00: 00 NO KNOWN Allergy Active [facility] Social History Social Habit Start Date Stop Date Quantity Comments Source History SDOH [facility] Alcohol Comment Medical C enter History SDOH [facility] Alcohol Std Drinks Medica l Center History SDOH [facility] Alcohol Binge Medical Alix ter Exposure to 2022-01-31 2022-02-[address] [facility] SARS-CoV-2 (event) 00:00:00 13:06:00 Medica l Center Alcohol intake 2022-02-10 2022-02-[address] [facility] 00:00:00 00:00:00 non-drinker Medical Cente r (finding) History SDOH 2022-02-10 2022-02-[address] [facility] Alcohol Frequency 00:00:00 00:00:00 Medical Center Cigarettes smoked 2021-01-26 2021-01-[address] [facility] current (pack per 00:00:00 00:00:00 Medical Center day) - Reported Cigarette 2021-01-26 2021-01-[address] [facility] pack-years 00:00:00 00:00:00 [facility] Tobacco use and 2021-01-26 2021-01-26 Smokeless [address] [facility] exposure 00:00:00 00:00:00 non-user Medical Center History of tobacco 1979-10-07 2021-01-[address] [facility] use 00:00:00 00:00:00 [facility] Sex Assigned At [address] [facility] 00:00:00 00:00:00 [facility] Center Smoking Status Start Date Stop Date Source Former smoker 2021-01-26 00:00:00 2021-01-26 00:00:00 [facility] Medications Ordered Filled Start Stop Current Ordering Indication Dosage Frequency Signature Comments Components Source Medication Medication Date Date Medication? Clinician (SIG) Name Name lisinopriL Yes 20mg QD Take 1 [facility] (PRINIVIL,Z 1-09 tablet (20 [facility] ESTRIL) 20 00:00: mg total) Me dical MG tablet 00 by mouth Center daily. lisinopriL 0 Yes 20mg QD Take 1 [facility] (PRINIVIL,Z 1-09 tablet (20 [facility] ESTRIL) 20 00:00: mg total) Me dical MG tablet 00 by mouth Center daily. empaglifloz 2023- No 10mg QD Take [address] [facility] in 02-12 tablet (10 [facility] (JARDIANCE) 00:00: 23:59 mg total) Medical 10 mg 00 :00 by mouth Center tablet daily. empaglifloz 2022-0 4- No 10mg QD Take [address] in 02-12 tablet (10 [facility] (JARDIANCE) 00:00: 23:59 mg total) Medical 10 mg 00 :00 by mouth Center tablet daily. levoFLOXaci 2022-2022- No 750mg Q24H Take [address] n 02-12 tablet [facility] (LEVAQUIN) 00:00: 23:59 (750 mg Med ical 750 MG 00 :00 total) by Center tablet mouth daily for 4 days. levoFLOXaci 2023-0 2023- No 750mg Q24H Take [address] [facility] 02-12 tablet [facility] (LEVAQUIN) 00:00: 23:59 (750 mg Med ical 750 MG 00 :00 total) by Center tablet mouth daily for 4 days. levoFLOXaci 2023-0 2023- No 750mg Q24H Take [address] [facility] 02-12 tablet [facility] (LEVAQUIN) 00:00: 00:00 (750 mg Med ical 750 MG 00 :00 total) by Center tablet mouth daily for 4 days. empaglifloz 2023-0 2023- No 10mg QD Take [address] in 02-12 tablet (10 [facility] (JARDIANCE) 00:00: 00:00 mg total) Medical 10 mg 00 :00 by mouth Center tablet daily. levoFLOXaci 2023-0 2023- No 750mg Q24H Take [address] n 02-12 tablet [facility] (LEVAQUIN) 00:00: 00:00 (750 mg Med ical 750 MG 00 :00 total) by Center tablet mouth daily for 4 days. empaglifloz 2023-0 2023- No 10mg QD Take [address] in 02-12 tablet (10 [facility] (JARDIANCE) 00:00: 00:00 mg total) Medical 10 mg 00 :00 by mouth Center tablet daily. metFORMIN 2023-0 Yes 750mg Take [address] [facility] (GLUCOPHAGE 1-07 mg by [facility] -XR) 750 MG 13:02: mouth Medic al 24 hr 58 daily with Center tablet breakfast. gabapentin 2023-0 Yes 300mg Q.5D Take [address] (NEURONTIN) 1-07 mg by [facility] 100 MG 13:02: mouth 2 Medical capsule 58 (two) Center times daily . gabapentin 2023-0 Yes 200mg QD Take [address] (NEURONTIN) 1-07 mg by [facility] 100 MG 13:02: mouth Medical capsule 58 nightly. Center glipiZIDE 2023-0 Yes 10mg Take [address] (GLUCOTROL) 1-07 by mouth 2 [facility] 10 MG 13:02: (two) Medical tablet 58 times Center daily before meals. semaglutide 2023-[address] [facility] (Ozempic) 1-07 subcutaneo Luke [facility] 0.25 mg or 13:02: usly. Medica l 0.5 mg(2 58 Center mg/1.5 mL) PnIj fluticasone 2022-0 Yes QD Inhale [address] -umeclidin- 1-07 Inhalation [facility] vilanter 13:02: by mouth Medic al (Trelegy 58 via Center Ellipta) inhaler 200-62.5-25 daily. mcg DsDv aspirin 81 0 Yes 81mg QD Take [address] MG EC 1-07 by mouth [facility] tablet 13:02: daily. [address] metFORMIN 0 Yes 750mg Take [address] (GLUCOPHAGE [...] MG 13:02: mouth Medical capsule 58 nightly. [place] glipiZIDE Yes 10mg Take [address] (GLUCOTROL) 1-07 by mouth 2 [facility] 10 MG 13:02: (two) Medical tablet 58 times Center daily before meals. semaglutide Yes Inject [facility] (Ozempic) 1-07 subcutaneo Luke [facility] 0.25 mg or 13:02: usly. Medica l 0.5 mg(2 58 Center mg/1.5 mL) PnIj fluticasone 2022-0 Yes QD Inhale [address] -umeclidin- 1-07 Inhalation [facility] vilanter 13:02: by mouth Medic al (Trelegy 58 via Center Ellipta) inhaler 200-62.5-25 daily. mcg DsDv aspirin 81 2022-0 Yes 81mg QD Take [address] MG EC 1-07 by mouth [facility] tablet 13:02: daily. [address] metoprolol 2022-0 2022- No 50mg Q.5D Take [address] tartrate 1-07 01- by mouth 2 [facility] (LOPRESSOR) 12:02: 00:00 (two) Medi yung 50 MG 17 :00 times Center tablet daily. lisinopriL 2022-0 2022- No 20mg QD Take [address] (PRINIVIL,Z 02-11 by mouth Matt es ESTRIL) 20 12:02: 00:00 daily. Medi yung MG tablet 17 :00 Center metoprolol 2022-0 2022- No 50mg Q.5D Take [address] tartrate 02-11 by mouth 2 Luke [facility] (LOPRESSOR) 12:02: 00:00 (two) Medi yung 50 MG 17 :00 times Center tablet daily. lisinopriL 2022-0 2022- No 20mg QD Take [address] (PRINIVIL,Z 02-11 by mouth Matt es ESTRIL) 20 12:02: 00:00 daily. Medi yung MG tablet 17 :00 Center varenicline 2022-0 2022- No .5mg Q.5D Take 0.[address] (CHANTIX) -08 05-07 mg by [facility] 0.5 MG 11:54: 00:00 mouth 2 Medical tablet 16 :00 (two) Center times daily Give with meals and with a full glass of water. . varenicline 2022-0 2022- No .5mg Q.5D Take 0.[address] (CHANTIX) - 01-07 mg by [facility] 0.5 MG 11:54: 00:00 mouth 2 Medical tablet 16 :00 (two) Center times daily Give with meals and with a full glass of water. . metoprolol 3-0 Yes 25mg Q.5D Take 0.[address] tartrate 1-07 tablets [facility] (LOPRESSOR) 00:00: (25 mg Medi yung 50 MG 00 total) by Center tablet mouth 2 (two) times daily. metoprolol 2023-0 Yes 25mg Q.5D Take 0.[address] tartrate 1-07 tablets [facility] (LOPRESSOR) 00:00: (25 mg Medi yung 50 MG 00 total) by Center tablet mouth 2 (two) times daily. torsemide 3-0 4- No 40mg QD Take 2 [facility] (DEMADEX) 1-07 01-07 tablets [facility] 20 MG 00:00: 23:59 (40 mg Medical tablet 00 :00 total) by Center mouth daily. potassium 2022-2023- No 20meq QD Take [address] chloride SA 02-11 tablet (20 L [facility]kes (K-DUR,KLOR 00:00: 23:59 mEq total) Medical -CON-M) 20 00 :00 by mouth Cente r MEQ tablet daily. torsemide 2022-2023- No 40mg QD Take 2 [facility] (DEMADEX) 02-11 tablets [facility] 20 MG 00:00: 23:59 (40 mg Medical tablet 00 :00 total) by Center mouth daily. potassium 2022-2023- No 20meq QD Take [address] chloride SA 02-11 tablet (20 L [facility]kes (K-DUR,KLOR 00:00: 23:59 mEq total) Medical -CON-M) 20 00 :00 by mouth Cente r MEQ tablet daily. torsemide 2022-2022- No 40mg QD Take 2 [facility] (DEMADEX) 02-11 tablets [facility] 20 MG 00:00: 00:00 (40 mg Medical tablet 00 :00 total) by Center mouth daily. potassium 2022-0 2022- No 20meq QD Take [address] chloride SA 02-11 tablet (20 L [facility]kes (K-DUR,KLOR 00:00: 00:00 mEq total) Medical -CON-M) 20 00 :00 by mouth Cente r MEQ tablet daily. torsemide 2022- No 40mg QD Take 2 [facility] (DEMADEX) 02-11 tablets [facility] 20 MG 00:00: 00:00 (40 mg Medical tablet 00 :00 total) by Center mouth daily. potassium 2022-0 2022- No 20meq QD Take [address] chloride SA 02-11 tablet (20 L [facility]kes (K-DUR,KLOR 00:00: 00:00 mEq total) Medical -CON-M) 20 00 :00 by mouth Cente r MEQ tablet daily. atorvastati 2022- Yes 10mg QD Take [address] n (LIPITOR) 02-06 by mouth Luke s 10 MG 00:00: daily. Medical tablet 00 [place] atorvastati Yes 10mg QD Take [address] n (LIPITOR) 1-02 by mouth Luke s 10 MG 00:00: daily. Medical tablet 00 [place] metoprolol 2020-02 Yes 50mg Q.5D Take [address] tartrate 2-24 by mouth 2 [facility] (LOPRESSOR) 12:31: (two) Medic al 50 MG 19 times Center tablet daily. lisinopriL 2020-02 Yes 20mg QD Take [address] (PRINIVIL,Z 2-24 by mouth Luke s ESTRIL) 20 12:31: daily. Medic al MG tablet 19 [place] metFORMIN 2020-02 Yes 750mg Take 750 CHI [...] MG 12:31: mouth Medical capsule 19 nightly. [place] glipiZIDE 2020-02 Yes 10mg Take 10 mg [...] [facility] -umeclidin- 2-24 Inhalation [facility] vilanter 12:31: by mouth Medic al (Trelegy 19 via Center Ellipta) inhaler 200-62.5-25 daily. mcg DsDv aspirin 81 2020-02 Yes 81mg QD Take [address] MG EC 2-24 by mouth [facility] tablet 12:31: daily. [place] [id number] Center furosemide 2020-02 20mg Take [address] [facility] (LASIX) 20 2-24 12-24 tablet (20 [facility] MG tablet 00:00: 23:59 mg total) Me dical 00 :00 by mouth 2 Center (two) times daily. furosemide 2020-02 20mg Take [address] [facility] [address] (LASIX) 20 2-24 12-24 tablet (20 [facility] MG tablet 00:00: 23:59 mg total) Me dical 00 :00 by mouth 2 Center (two) times daily. furosemide 2020-02 20mg Take [address] [facility] (LASIX) 20 2-24 12-24 tablet (20 [facility] MG tablet 00:00: 23:59 mg total) Me dical 00 :00 by mouth 2 Center (two) times daily. HYDROcodone 2020-02 1{tbl} Take [address] -acetaminop 2-24 02-07 tablet by [facility] [place] (NORCO 00:00: 23:59 [...] kg Systolic blood 2022-02-11 11:59:00 96 mm[Hg] [facility] Diastolic blood 2022-02-11 11:59:00 63 mm[Hg] [facility] Heart rate 2022-02-11 11:59:00 95 /min [facility] Body temperature 2022-02-11 11:59:00 36.22 [facility] Respiratory rate 2022-02-11 11:59:00 18 /min [facility] Oxygen saturation 2022-02-11 11:59:00 99 /min [facility] in Arterial blood Medical nter by Pulse oximetry Body height 2022-02-10 08:20:00 167.6 cm 167.6 cm (5' [facility] 6") as of Medical Center 01/26/2021 Body weight 2022-02-09 08:50:00 137.848 kg [facility] BMI 2022-02-09 08:50:00 49.05 kg/m2 [facility] Procedures Procedure Date / Time Performed Performing Clinician Alan young POCT-GLUCOSE METER 2022-02-11 11:57:[address] [facility] POCT-GLUCOSE METER 2022-02-11 06:25:00 Zeinab Nova [facility] CBC W/PLT COUNT & AUTO 2022-02-11 06:11:00 Rosario, Mehdi [facility] CBC W/PLT COUNT & AUTO 2022-02-11 06:11:[address] [facility] BASIC METABOLIC PANEL 2022-02-11 03:56:00 Rosario, [facility] MAGNESIUM 2022-02-11 03:56:00 [facility] CALCIUM, IONIZED 2022-02-11 03:56:[address] [facility] PHOSPHORUS 2022-02-11 03:56:00 Rosario [facility] BLOOD GAS, VENOUS 2022-02-10 21:01:00 Kiko Roberto [facility] BASIC METABOLIC PANEL 2022-02-10 21:01:00 Rosario [facility] MAGNESIUM 2022-02-10 21:01:00 [facility] BASIC METABOLIC PANEL 2022-02-10 12:19:00 [facility] MAGNESIUM 2022-02-10 12:19:00 Rosario, [facility] POCT-GLUCOSE METER 2022-02-10 11:19:00 Zeinab Nova [facility] POCT-GLUCOSE METER 2022-02-10 08:51:[address] [facility] POCT-GLUCOSE METER 2022-02-10 05:44:[address] [facility] BASIC METABOLIC PANEL 2022-02-10 04:21:00 [facility]ario [facility] MAGNESIUM 2022-02-10 04:21:00 Rosario [facility] CALCIUM, IONIZED 2022-02-10 04:21:[address] [facility] PHOSPHORUS 2022-02-10 04:21:00 Rosario [facility] CBC W/PLT COUNT & AUTO 2022-02-10 04:21:00 RosarioMehdi arredondo [facility] BLOOD GAS, VENOUS 2022-02-10 04:21:00 Adhi, [facility] Jose Alberto [facility] CBC W/PLT COUNT & AUTO 2022-02-10 04:21:[address] [facility] POCT-GLUCOSE METER 2022-02-10 00:10:[address] BLOOD GAS, VENOUS 2022-02-09 21:19:00 Adhi Kiko [facility]OLIC PANEL 2022-02-09 21:19:00 Orsario, [facility] MAGNESIUM 2022-02-09 21:19:00 Rosario, [facility] CALCIUM, IONIZED 2022-02-09 21:19:00 Madhuri Aguirre [facility] POCT-GLUCOSE METER 2022-02-09 19:33:[address] POCT-GLUCOSE METER 2022-02-09 12:08:00 Samm Monroe [facility] BASIC METABOLIC PANEL 2022-02-09 10:22:00 Rosario, [facility] MAGNESIUM 2022-02-09 10:22:00 Rosario [facility] PROCALCITONIN 2022-02-09 10:22:00 Gisselle Whitehead [facility] XR CHEST 1 VIEW PORTABLE 2022-02-09 08:16:00 Mehdi Ponce [facility] / BEDSIDE [facility] ECG 12-LEAD 2022-02-09 07:44:27 Unknown, Hl[facility] Doctor [facility] ECG 12-LEAD 2022-02-09 07:44:27 Unknown, H[facility] ECG 12-LEAD 2022-02-09 07:44:05 Unknown, Hl7 Doctor [facility] ECG 12-LEAD 2022-02-09 07:44:05 Unknown, Hl7 Doctor [facility] ECG 12-LEAD 2022-02-09 07:44:05 Unknown, Hl7 Doctor [facility] BLOOD GAS, VENOUS 2022-02-09 06:51:00 LavonAbril [facility] POCT-GLUCOSE METER 2022-02-09 05:46:00 ObSamm mosley [facility] BASIC METABOLIC PANEL 2022-02-09 04:12:00 Rosario, [facility] MAGNESIUM 2022-02-09 04:12[facility] 2022-02-09 04:12[facility] 2022-02-09 04:12:00 Rosario, [facility] CBC W/PLT COUNT & AUTO 2022-02-09 [facility] 2022-02-09 04:12:00 Adhi, [facility]iko [facility] CBC W/PLT COUNT & AUTO 2022-02-09 04:12:[address] [facility] POCT-GLUCOSE METER 2022-02-08 23:48:00 ObSamm mosley [facility] BLOOD GAS, VENOUS 2022-02-08 20:34:00 AdhiKiko [facility] BASIC METABOLIC PANEL 2022-02-08 20:34:00 Rosario, [facility] MAGNESIUM 2022-02-08 20:34:00 Rosario, [facility] POCT-GLUCOSE METER 2022-02-08 20:11:00 ObSamm mosley [facility] HIGH SENSITIVITY TROPONIN 2022-02-08 15:32:00 Regi Longoria [facility] BLOOD GAS, VENOUS 2022-02-08 15:32:00 Regi Longoria [facility] 2D ECHO W/ DOPPLER 2022-02-08 15:30:00 AdhKiko barnhart [facility] (CW/PW/COLOR) [facility] PACEMAKER CHECK 2022-02-08 11:59:28 Michelle Dotson [facility] HIGH SENSITIVITY TROPONIN 2022-02-08 11:18:00 Regi Longoria [facility] BASIC METABOLIC PANEL 2022-02-08 11:18:00 [facility] MAGNESIUM 2022-02-08 11:18:00 [facility] BLOOD GAS, VENOUS 2022-02-08 11:18:00 Candis Leigh [facility] SPUTUM CULTURE + GRAM 2022-02-08 09:51:00 [facility] STAIN [facility] XR ABDOMEN/KUB 1 VIEW 2022-02-08 08:42:00 Regi Longoria [facility] BLOOD GAS, VENOUS 2022-02-08 08:01:00 Adhi, Kiko Abrams [facility] POCT-GLUCOSE METER 2022-02-08 06:00:00 Samm Monroe [facility] MRSA SCREEN 2022-02-08 04:40:00 [facility] APTT 2022-02-08 04:40:00 [facility] URINALYSIS WITH 2022-02-08 04:21:00 [facility] MICROSCOPIC IF INDICATED [facility] HIGH SENSITIVITY TROPONIN 2022-02-08 03:48:00 [facility] BLOOD CULTURE 2022-02-08 03:44:00 [facility] POCT-GLUCOSE METER 2022-02-08 02:22:00 Samm Monroe [facility] BLOOD CULTURE 2022-02-08 01:58:00 [facility] BLOOD CULTURE 2022-02-08 01:56:00 [facility] ECG 12-LEAD 2022-02-08 01:53:38 Unknown, Hl[facility] ECG 12-LEAD 2022-02-08 01:53:38 Unknown, [facility] ECG 12-LEAD 2022-02-08 01:53:38 Unknown, [facility] PROTHROMBIN TIME/INR 2022-02-08 01:52:00 [facility] BASIC METABOLIC PANEL 2022-02-08 01:51:00 [facility] HEPATIC FUNCTION PANEL 2022-02-08 01:51:00 [facility] MAGNESIUM 2022-02-08 01:51:00 [facility] PHOSPHORUS 2022-02-08 01:51:00 [facility] TSH/FREE T4 IF INDICATED 2022-02-08 01:51:00 [facility] HIGH SENSITIVITY TROPONIN 2022-02-08 01:51:00 [facility] B-TYPE NATRIURETIC FACTOR 2022-02-08 01:51:00 [facility] (BNP) [facility] C-REACTIVE PROTEIN 2022-02-08 01:51:00 [facility] CBC W/PLT COUNT & AUTO 2022-02-08 01:51:[address] [facility] LACTIC ACID, VENOUS 2022-02-08 01:51:00 [facility] T4, FREE 2022-02-08 01:51:00 [facility] CBC W/PLT COUNT & AUTO 2022-02-08 01:51:[address] [facility] BLOOD GAS, VENOUS 2022-02-08 01:34:00 [facility] XR CHEST 1 VIEW PORTABLE 2022-02-08 00:57:00 Mac Dalton [facility] EKG-SCANNED 2022-02-08 00:00:00 Provider, Ara [facility] ARRYTHMIA IMPLANT REPORT 2022-02-08 00:00:00 Provider, Default [facility] - SCAN Scanning [facility] Plan of Care Planned Activity Planned Date Details Comments Source Future Scheduled 2024-01-28 Lipid panel (procedure) [facility] Test 00:00:00 [code = 10530082] Medical Ce nter Future Scheduled 2024-01-28 Lipid panel (procedure) [facility] Test 00:00:00 [code = 09888278] Medical Ce nter Future Scheduled 2024-01-28 Lipid panel (procedure) [facility] Test 00:00:00 [code = [id number]] Medical Ce nter Future Scheduled 2023-02-[address] [facility] Test 00:00:00 Counseling [facility] Medical Cente r Screening (12+) [code = Tobacco Cessation Counseling and Screening (12+)] Future Scheduled 2023-02-[address] [facility] Test 00:00:00 Counseling and Medical Cente r Screening (12+) [code = Tobacco Cessation Counseling and Screening (12+)] Future Scheduled 2022-10-[address] [facility] Test 00:00:00 (Season Ended) [code = [facility] INFLUENZA VACCINE (Season Ended)] Future Scheduled 2022-02-[address] [facility] Test 00:00:00 (12+) [code = Medical Center DEPRESSION SCREENING (12+)] Future Scheduled 2022-02-05 DEPRESSION SCREENING [facility] [...] [facility] Test 00:00:00 measurement (procedure) [facility] [code = 63131599] Future Scheduled 2021-04-[address] [facility] Test 00:00:00 measurement (procedure) [facility] [code = 48525698] Future Scheduled 2021-04-[address] [facility] Test 00:00:00 measurement (procedure) [facility] [code = 55056159] Future Scheduled 2021-03-25 COVID-19 VACCINE (4 - [facility] 00:00:00 Booster for Pfizer Medical C enter series) [code = COVID-19 VACCINE (4 - Booster for Pfizer series)] Future Scheduled 2021-02-[address] [facility] Test 00:00:00 (12+) [code = [facility] Center DEPRESSION SCREENING (12+)] Future Scheduled 2012 SHINGLES VACCINES ([address] [facility] 00:00:00 2) [facility] Future Scheduled 2012 SHINGLES VACCINES ([address] [facility] Test 00:00:00 2) [code = SHINGLES [facility] VACCINES (1 of 2)] Future Scheduled 2012 SHINGLES VACCINES ([address] [facility] Test 00:00:00 2) [facility] 2)] Future Scheduled 1983-10-03 Screening for malignant [facility] Test 00:00:00 neoplasm of cervix Medical C enter (procedure) [code = 176759087] Future Scheduled 1983-10-03 Screening for malignant [facility] Test 00:00:00 neoplasm of cervix Medical C enter (procedure) [code = [id number]] Future Scheduled 1983-10-03 Screening for malignant [facility] Test 00:00:00 neoplasm of cervix Medical C enter (procedure) [code = 664556041] Future Scheduled 1981 DTAP/TDAP/TD VACCINES CH I [...] 00:00:00 examination Medical Center (regime/therapy) [code = [id number]] Future Scheduled 1972 Urine screening for [facility] 00:00:00 protein (procedure) Medical Center [code = 410519894] Future Scheduled 1972 DIABETIC EYE EXAM [code [facility] 00:00:00 = DIABETIC EYE EXAM] Medical Center Future Scheduled [address] [facility] Test 00:00:00 examination Medical Center (regime/therapy) [code = 248751190] Future Scheduled 1972 Urine screening for [facility] Test 00:00:00 protein (procedure) Medical Center [code = 944763740] Future Scheduled 1972 DIABETIC EYE EXAM [code [facility] 00:00:00 = DIABETIC EYE EXAM] Medical Center Future Scheduled [address] [facility] Test 00:00:00 examination Medical Center (regime/therapy) [code = 636691699] Future Scheduled 1972 Urine screening for [facility] 00:00:00 protein (procedure) [facility] [code = 257908552] Future Scheduled [address] [facility] breast Medical C enter (procedure) [code = 255044599] Future Scheduled 1962 CT Colonography (combo) [facility] Test 00:00:00 [code = CT Colonography [facility] (combo)] Future Scheduled 1962 Screening for malignant [facility] Test 00:00:00 neoplasm of colon Medical Ce nter (procedure) [code = 752899118] Future Scheduled 1962 Screening for malignant [facility] Test 00:00:00 neoplasm of colon Medical Ce nter (procedure) [code = 432846765] Future Scheduled 1962 Screening for malignant [facility] 00:00:00 neoplasm of colon Medical Ce nter (procedure) [code = 884990950] Future Scheduled 1962 Screening for malignant [facility] Test 00:00:00 neoplasm of colon Medical Ce nter (procedure) [code = 629364154] Future Scheduled 1960 Sigmoidoscopy [facility]code [facility] Screening for malignant [facility] 00:00:00 neoplasm of breast Medical C enter (procedure) [code = 884736583] Future Scheduled 1962 CT Colonography (combo) [facility] 00:00:00 [code = CT [facility] ([facility])] Future Scheduled 1962 Screening for malignant [facility] 00:00:00 neoplasm of colon Medical Ce nter (procedure) [code = 993967647] Future Scheduled 1962 Screening for malignant [facility] 00:00:00 neoplasm of colon Medical Ce nter (procedure) [code = 124498786] Future Scheduled [address] Screening for malignant [facility] 00:00:00 neoplasm of colon Medical Ce nter (procedure) [code = 040065803] Future Scheduled 1962 Screening for malignant [facility] 00:00:00 neoplasm of colon Medical Ce nter (procedure) [code = 312933708] Future Scheduled 1962 Sigmoidoscopy [facility]code = [facility]] [facility] Cent[facility] Future Scheduled 1962 Screening for malignant [facility] 00:00:00 neoplasm of breast Medical C enter (procedure) [code = 053614211] Future Scheduled 1962 CT Colonography (combo) [facility] 00:00:00 [code = CT Colonography [facility] (combo)] Future Scheduled 1962 Screening for malignant [facility] 00:00:00 neoplasm of colon Medical Ce nter (procedure) [code = 997330423] Future Scheduled 1962 Screening for malignant [facility] 00:00:00 neoplasm of colon Medical Ce nter (procedure) [code = 344530420] Future Scheduled [address] Screening for malignant [facility] 00:00:00 neoplasm of colon Medical Ce nter (procedure) [code = 857314532] Future Scheduled 1962 Screening for malignant [facility] 00:00:00 neoplasm of colon Medical Ce nter (procedure) [code = 149584775] Future Scheduled 1960 Sigmoidoscopy [facility]code = [facility]] Medical Cente r Encounters Start End Encounter Admission Attending Care Care Encounter Source Date/Time Date/Time Type Type Clinicians Facility Department ID 2022-03-02 2022-03-02 Outpatient [facility] [id number] SLE 00:00:00 00:00:00 SAMM 2022-03-01 2022-03-01 Orders Jacky Morgan [facility] [id number] [facility] 00[facility]00 Only [facility] 2022-03-01 2022-03-01 Documentyonatan Rush [facility] [id number] [facility] 00:00:00 ion Sima Young [facility] 2022-02-16 2022-02-16 Orders Emirtreasure [facility] [id number] 00:00[facility]00 00:00:00 Only [facility] 2022-02-08 2022-02-11 [facility] [id number] 00[facility]32[facility]00 13:02:00 [facility] Roberto Jose Alberto 2022-02-08 2022-02-11 [facility] [id number] 00:32:00 13:02:00 Encounter Patricia Cardoso [facility] 2022-02-08 2022-02-11 Inpatient ER [facility] [id number] SLE 00:32:00 13:02:00 RHEA 2022-02-10 2022-02-10 Travel [facility] [id number] [facility] 2022-02-10 2022-02-10 Travel [facility] [id number] [facility] 2022-02-09 2022-02-09 Outpatient [facility] [id number] [facility] 00:00:00 23:59:00 [facility] 2022-02-08 2022-02-08 Orders [facility] [id number] 00:00[facility]00 00:00:00 [facility] 2022-02-08 2022-02-08 Orders [facility] [id number] 00:00:00 00:00:00 [facility] 2021-01-26 2021-01-28 [facility] 2 [id number] [facility] 11:30:00 10:48:00 DALY 2021-01-27 2021-01-27 Outpatient [facility] [id number] [facility] 00:00:00 23:59:00 [facility] 2021-01-26 2021-01-26 Outpatient [facility] [id number] [facility] 11:30:00 23:59:00 [facility] [...] recovery and/or detection times of some organisms.BLOOD [id number] 03:00:47 Test Item Value Reference Range Interpretation Comments CULTURE (BEAKER) (test No growth in 5 days code = 1095) BLOOD [id number] 03:00:47 Test Item Value Reference Range Interpretation Comments CULTURE (BEAKER) (test No growth in 5 days code = 1095) POC-Glucose [id number] 12:09:16 Test Item Value Reference Range Interpretation Comments POC-Glucose Meter (test 235 mg/dL 70-110 H : TE STED AT [facility] code = 1538) 6720 [facility], [facility] 30: Sawyer Cork Slabs/Techni roseline ID = [id number] for STEVAN PALMER Lab Interpretation (test Abnormal code = 35023-6) [facility] [id number] 12:09:16 Test Item Value Reference Range Interpretation Comments POC-Glucose Meter (test 235 mg/dL 70-110 H : TE STED AT [facility] code = 1538) 6720 [facility], 770 30: [place] Slabs/Techni roseline ID = [id number] for STEVAN PALMER Lab Interpretation (test Abnormal code = 60570-0) [facility] [id number] 12:09:16 Test Item Value Reference Range Interpretation Comments POC-GLUCOSE METER 235 mg/dL 70-110 H : TESTED A T [facility] 6720 (BEAKER) (test code = RICH Lopez [facility], 1538) [address]: [place] Slabs/Techni roseline ID = [id number] for STEVAN GLASGOW SPUTUM CULTURE + GRAM [id number] 10:55:56 Test Item Value Reference Range Interpretation [...] interpret this result as normal/abnormal . CULTURE ([facility] (test CITROBACTER A <1+ C itrobacter code = 1095) KOSERI papoeri Amikacin (test code = S 1) Aztreonam [...] gram positive (BEAKER) (test code = rods 161732) GRAM STAIN RESULT 1+ gram positive (BEAKER) (test code = cocci in chains, 798809) pairs and clusters 1+ Normal respiratory malcolm presentCBC W/PLT COUNT & AUTO DIFFERENTIAL 2022-02-11 07:52:01 [...] PERCENT (BEAKER) (test code = 2801) POCT-GLUCOSE [id number] 06:37:10 Test Item Value Reference Range Interpretation Comments POC-GLUCOSE METER 236 mg/dL 70-110 H : TESTED A T [facility] 6720 (BEAKER) (test code [facility], = 1538) [address]863: [place] Slabs/Techni roseline ID = [id number] for Hayley Martínez BASIC METABOLIC [id number] 05:47:07 Test Item Value Reference Range Interpretation [...] De scription 1092) sq m Result G1 Norm al or high >=90 G2 Mildly decreased 60-89 [...] not appl icable for dialysis patien ts [place] Slabs ID - CLYDE [id number] 05:45:35 Test Item Value Reference Range Interpretation Comments PHOSPHORUS (BEAKER) 4.5 mg/dL 2.3-4.7 Specimen slightly (test code = 604) hemolyzed [place] Slabs ID - CLYDE [id number] 05:45:34 Test Item Value Reference Range Interpretation Comments MAGNESIUM (BEAKER) 2.5 mg/dL 1.6-2.6 Specimen slightly (test code = 627) hemolyzed [place] Slabs ID Leopoldo TANG LCALCIUM, [id number] 04:42:57 Test Item Value Reference Range Interpretation Comments CALCIUM IONIZED (BEAKER) (test 1.13 mmol/L 1.12-1.27 code = 698) PH, BLOOD (BEAKER) (test code = 7.41 1810) BASIC METABOLIC [id number] 21:29:14 Test Item Value Reference Range Interpretation [...] not appl icable for dialysis patien ts [place] Slabs ID - [id number] 21:27:04 Test Item Value Reference Range Interpretation Comments MAGNESIUM (BEAKER) (test code = 1.5 mg/dL 1.6-2.6 L 627) [place]yer [place] Slabs ID - DARONOOD GAS, [id number] 21:17:20 Test Item Value Reference Range Interpretation [...] (test 37.0 code = 1818) BASIC METABOLIC [id number] 12:49:25 Test Item Value Reference Range Interpretation [...] not appl icable for dialysis patien ts [place] Slabs ID - [id number] 12:49:24 Test Item Value Reference Range Interpretation Comments MAGNESIUM (BEAKER) 2.0 mg/dL 1.6-2.6 Specimen slightly (test code = 627) hemolyzed [place] Slabs ID - MARCOPOCT-GLUCOSE [id number] 11:36:36 Test Item Value Reference Range Interpretation Comments POC-GLUCOSE METER 247 mg/dL 70-110 H : TESTED A T [facility] 6720 (BEAKER) (test code = RICH Lopez [facility], 1538) [address]: [place] Slabs/Techni rsoeline ID = [id number] for Meena Miller MRSA [id number] 11:22:03 Test Item Value Reference Range Interpretation Comments Result (test code = 6463-4) No MRSA isolated [facility] [id number] 11:22:03 Test Item Value Reference Range Interpretation Comments Result (test code = 6463-4) No MRSA isolated [facility] [id number] 11:22:03 Test Item Value Reference Range Interpretation Comments CULTURE (BEAKER) (test code No MRSA isolated = 1095) POCT-GLUCOSE [id number] 09:02:18 Test Item Value Reference Range Interpretation Comments POC-GLUCOSE METER 184 mg/dL 70-110 H : TESTED A T [facility] 6720 (BEAKER) (test code = RICH Lopez [place], 1538) [address]: Sawyer Cork Slabs/Techni roseline ID = [id number] for MAGGI BONILLA (ROLDAN Mayers POCT-GLUCOSE [id number] 05:56:07 Test Item Value Reference Range Interpretation Comments POC-GLUCOSE METER 169 mg/dL 70-110 H : TESTED A T [facility] 6720 (BEAKER) (test code = RICH Lopez [place], 1538) [address]: Sawyer Cork Slabs/Techni roseline ID = [id number] for LEIDA HEBERT BASIC METABOLIC [id number] 05:24:39 Test Item Value Reference Range Interpretation [...] decreased 60-89 G3a Mildl y to moderately 45- 59 G3b Moderately to s everely 30-44 G4 Severl y decreased 15-29 G5 Kidney failure <15Reported eGF R is based on the CKD-EPI 2021 equation that d oes not use a race coefficientEsti mated GFR is not as accur ate as Creatinine Radha piero in predicting glom erular filtration rate . Estimated GFR is not appl icable for dialysis patien ts [place] Slabs ID - [id number] 05:24:39 Test Item Value Reference Range Interpretation Comments MAGNESIUM (BEAKER) (test code = 2.1 mg/dL 1.6-2.6 627) [place]yer [place] Slabs ID - [id number] 05:24:39 Test Item Value Reference Range Interpretation Comments PHOSPHORUS (BEAKER) (test code = 4.9 mg/dL 2.3-4.7 H 604) [place] Slabs ID - MARCOCALCIUM, [id number] 05:05:35 Test Item Value Reference Range Interpretation Comments CALCIUM IONIZED (BEAKER) (test 0.93 mmol/L 1.12-1.27 L code = 698) PH, BLOOD (BEAKER) (test code = 7.43 1810) BLOOD GAS, [id number] 05:05:35 Test Item Value Reference Range Interpretation [...] = 1818) CBC W/PLT COUNT & AUTO [id number] 04:59:55 Test Item Value Reference Range Interpretation [...] PERCENT (BEAKER) (test code = 2801) POCT-GLUCOSE [id number] 00:25:58 Test Item Value Reference Range Interpretation Comments POC-GLUCOSE METER 166 mg/dL 70-110 H : [facility] (BEAKER) (test code = [place], 1538) [address]: Sawyer Cork Slabs/Techni roseline ID = [id number] for LEIDA HEBERT BASIC METABOLIC [id number] 21:59:05 Test Item Value Reference Range Interpretation [...] not appl icable for dialysis patien ts [place] Slabs ID - [id number] 21:59:05 Test Item Value Reference Range Interpretation Comments MAGNESIUM (BEAKER) (test code = 2.4 mg/dL 1.6-2.6 627) [place] Slabs ID - BSBLOOD GAS, [id number] 21:57:24 Test Item Value Reference Range Interpretation [...] (BEAKER) (test code = 1819) 100.0 CALCIUM, [id number] 21:54:48 Test Item Value Reference Range Interpretation Comments CALCIUM IONIZED (BEAKER) (test 0.99 mmol/L 1.12-1.27 L code = 698) PH, BLOOD (BEAKER) (test code = 7.48 1810) POCT-GLUCOSE [id number] 19:44:55 Test Item Value Reference Range Interpretation Comments POC-GLUCOSE METER 211 mg/dL 70-110 H : TESTED A T [facility] 6720 (BEAKER) (test code = [facility], 1538) [address]: Sawyer [place] Slabs/Techni roseline ID = [id number] for VANESSA DAVID POCT-GLUCOSE [id number] 12:20:24 Test Item Value Reference Range Interpretation Comments POC-GLUCOSE METER 224 mg/dL 70-110 H : TESTED A T [facility] 6720 (BEAKER) (test code = [facility], 1538) [address]: [place]yer [place] Slabs/Techni roseline ID = [id number] for MARY SEPULVEDA [id number] 11:22:59 Test Item Value Reference Range Interpretation Comments PROCALCITONIN (BEAKER) (test code = < ng/mL <0.05 3036) SEPSIS RISK (ng/mL)Low: 0.05-0.50Intermediate: 0.51-2.00High: >=2.01MAGNESIUM 2022-02-09 11:13:48 Test Item Value Reference Range Interpretation Comments MAGNESIUM (BEAKER) 1.9 mg/dL 1.6-2.6 Specimen slightly (test code = 627) hemolyzed [place] Slabs ID - MARCOBASIC METABOLIC [id number] 11:13:48 Test Item Value Reference Range Interpretation [...] not appl icable for dialysis patien ts [place] Slabs ID - STEVENBoogie, CHEST, 1 VIEW, NON [id number] 09:44:00Reason for exam:->mechanical ventilation [facility] : 1960 Sex: FFINAL [...] changes. Additional findings: None. Signed: Josephine Pastor Verified Date/Time: 309:44:20 Reading Location: [address] Reading Room BLOOD GAS, [id number] 07:03:23 Test Item Value Reference Range Interpretation [...] (test code = 1819) 40.0 BASIC METABOLIC [id number] 06:37:07 Test Item Value Reference Range Interpretation [...] not appl icable for dialysis patien ts [place] Slabs ID - [id number] 06:37:07 Test Item Value Reference Range Interpretation Comments MAGNESIUM (BEAKER) (test code = 2.0 mg/dL 1.6-2.6 627) [place]yer [place] Slabs ID - [id number] 06:37:07 Test Item Value Reference Range Interpretation Comments PHOSPHORUS (BEAKER) (test code = 3.6 mg/dL 2.3-4.7 604) [place]yer [place] Slabs ID - MARCOPOCT-GLUCOSE [id number] 05:59:22 Test Item Value Reference Range Interpretation Comments POC-GLUCOSE METER 196 mg/dL 70-110 H : Notified RN/MD: (BEAKER) (test code = TESTED AT [facility] 4705 7551) [facility], [address]: [place] Slabs/Techni roseline ID = [id number] for FISH QUIROZ CBC W/PLT COUNT & AUTO [id number] 05:00:22 Test Item Value Reference Range Interpretation [...] (BEAKER) (test code = 2801) BLOOD GAS, [id number] 04:44:59 Test Item Value Reference Range Interpretation [...] (BEAKER) (test code = 1819) 100.0 CALCIUM, [id number] 04:42:39 Test Item Value Reference Range Interpretation Comments CALCIUM IONIZED (BEAKER) (test 0.96 mmol/L 1.12-1.27 L code = 698) PH, BLOOD (BEAKER) (test code = 7.49 1810) POCT-GLUCOSE [id number] 23:59:58 Test Item Value Reference Range Interpretation Comments POC-GLUCOSE METER 183 mg/dL 70-110 H : Notified RN/MD: (BEAKER) (test code = TESTED AT [facility] 6900 9632) [facility], [address]: [place] Slabs/Techni roseline ID = [id number] for FISH QUIROZ BASIC METABOLIC [id number] 21:33:43 Test Item Value Reference Range Interpretation [...] (test code = 697) EGFR (BEAKER) 74 Interpretatio n of eGFR (test code = mL/min/1.73 values Stage De scription 1092) sq m Result G1 Norm al or high >=90 G2 Mildly decreased 60-89 [...] not appl icable for dialysis patien ts [place] Slabs ID - [id number] 21:33:43 Test Item Value Reference Range Interpretation Comments MAGNESIUM (BEAKER) (test code = 1.7 mg/dL 1.6-2.6 627) [place] Slabs ID - BSBLOOD GAS, [id number] 20:44:31 Test Item Value Reference Range Interpretation [...] (BEAKER) (test code = 1819) 21.0 POCT-GLUCOSE [id number] 20:22:45 Test Item Value Reference Range Interpretation Comments POC-GLUCOSE METER 204 mg/dL 70-110 H : TESTED A T [facility] 6720 (BEAKER) (test code = [facility] [place], 1538) [address]: Sawyer [place] Slabs/Techni roseline ID = [id number] for FISH QUIROZ Transthoracic 2D echo w/ doppler (cw/pw/color)2022-02-08 17:13:29Ejection [facility]H [facility]CHO [facility] Transthoracic 2D echo w/ doppler (cw/pw/color)2022-02-08 17:13:29Ejection [facility]SLEH [facility] TROPONIN [id number] 16:30:17 Test Item Value Reference Range Interpretation Comments HIGH SENSITIVITY 498 pg/ml See_Comment H [Automated message] TROPONIN I (test code The sy stem which = [id number]) generated this result transmitted ref erence range: <=17. Th e reference range was not used to int erpret this result as normal/abnormal . [place]yer [place] Slabs ID - BSThe DIRECTOR SEARCH STAT High Sensitivity Troponin-I results should be used in conjunctionwith other diagnostic information such as ECG, clinical observations and information, and patient symptoms to aid in the diagnosis of [facility].BLOOD GAS, [id number] 15:44:30 Test Item Value Reference Range Interpretation [...] code = 1819) 21.0 HIGH SENSITIVITY TROPONIN [id number] 12:24:43 Test Item Value Reference Range Interpretation Comments HIGH SENSITIVITY 636 pg/ml See_Comment HH [Automated message] TROPONIN I (test code The sy stem which = [id number]) generated this result transmitted ref erence range: <=17. Th e reference range was not used to int erpret this result as normal/abnormal . [place]yer [place] Slabs ID - ROLANDO GThe DIRECTOR SEARCH STAT High Sensitivity Troponin-I results should be used in conjunction with other diagnostic information such as ECG, clinical observations and information, and patient symptoms to aid in the diagnosis of [facility].[id number] 12:04:16 Test Item Value Reference Range Interpretation Comments MAGNESIUM (BEAKER) 1.8 mg/dL 1.6-2.6 Specimen slightly (test code = 627) hemolyzed [place] Slabs ID - ROLANDO GBASIC METABOLIC [id number] 12:04:16 Test Item Value Reference Range Interpretation [...] not appl icable for dialysis patien ts [place] Slabs ID - ROLANDO GBLOOD GAS, [id number] 11:42:38 Test Item Value Reference Range Interpretation [...] = 1819) 40.0 RAD, ABDOMEN/KUB, 1 VIEW [id number] 08:53:00Reason for exam:->og tube placementCH[facility] : 1960 Sex: FFINAL REPORT RAD, ABDOMEN/KUB, 1 VIEW AP INDICATION: og tube placement COMPARISON:None TECHNIQUE: Limited portable radiograph of the lower chest and upper abdomen was acquired for purposes of evaluating tube placement FINDINGS/IMPRESSION:NG side-port overlies the stomach Signed: Josephine Pastor MDReport Verified Date/Time: 02/08/2022 08:53:39 Reading Location: [address] Reading Room BLOOD GAS, [id number] 08:15:16 Test Item Value Reference Range Interpretation [...] = 1819) 21.0 Urinalysis with Microscopic If [id number] 07:51:46 Test Item Value Reference Range Interpretation Comments Color, UA (test code = Colorless 5778-6) Clarity, UA (test code = Clear 5767-9) Specific [place], UA 1.012 1.001-1.035 (test code = 5811-5) pH, UA (test code = 6.0 5.0-8.0 5803-2) Protein, UA (test code = Negative Negative 92225-1) Glucose, UA (test code = Negative Negative 365) Ketones, UA (test code = Negative Negative 2514-8) Bilirubin, UA (test code Negative Negative = 13315-1) Blood, UA (test code = Negative Negative 81767-5) Nitrite, UA (test code = Negative Negative 5802-4) Leukocytes, UA (test Negative Negative code = 5799-2) Urobilinogen, UA (test 0.2 0.2-1.0 code = 52882-8) Specimen Source (test code = 2795) FABIANA (test code = FABIANA) Sawyer [place] Slabs ID - [auto] [facility] Center[facility]inal[facility] with Microscopic If [id number] 07:51:46 Test Item Value Reference Range Interpretation Comments Color, UA (test code = Colorless 5778-6) Clarity, UA (test code = Clear 5767-9) Specific [place], UA 1.012 1.001-1.035 (test code = 5811-5) pH, UA (test code = 6.0 5.0-8.0 5803-2) Protein, UA (test code = Negative Negative 14641-9) Glucose, UA (test code = Negative Negative 365) Ketones, UA (test code = Negative Negative 2514-8) Bilirubin, UA (test code Negative Negative = 21803-0) Blood, UA (test code = Negative Negative 72277-8) Nitrite, UA (test code = Negative Negative 5802-4) Leukocytes, UA (test Negative Negative code = 5799-2) Urobilinogen, UA (test 0.2 0.2-1.0 code = 62317-1) Specimen Source (test code = 2795) FABIANA (test code = FABIANA) Sawyer Cork Slabs ID - [auto] [facility] CenterURINALYSIS WITH MICROSCOPIC IF [id number] 07:51:46 Test Item Value Reference Range Interpretation [...] = 463) SOURCE(BEAKER) (test code = 2795) Sawyer [place] Slabs ID - [auto]POCT-GLUCOSE [id number] 06:12:02 Test Item Value Reference Range Interpretation Comments POC-GLUCOSE METER 227 mg/dL 70-110 H : TESTED A T [facility] 6720 (BEAKER) (test code = [place], 1538) [address]: Sawyer Cork Slabs/Techni roseline ID = [id number] for VELASQUEZ PURI [id number] 05:27:56 Test Item Value Reference Range Interpretation Comments PARTIAL THROMBOPLASTIN TIME 27.2 seconds 22.5-36.0 (BEAKER) (test code = 760) HIGH SENSITIVITY TROPONIN [id number] 05:19:48 Test Item Value Reference Range Interpretation Comments HIGH SENSITIVITY 580 pg/ml See_Comment HH [Automated message] TROPONIN I (test code The sy stem which = [id number]) generated this result transmitted ref erence range: <=17. Th e reference range was not used to int erpret this result as normal/abnormal . Sawyer Cork Slabs ID - BSThe DIRECTOR SEARCH STAT High Sensitivity Troponin-I results should be used in conjunctionwith other diagnostic information such as ECG, clinical observations and information, and patient symptoms to aid in the diagnosis of [facility].PROTHROMBIN TIME/[id number] 04:33:11 Test Item Value Reference Range Interpretation Comments PROTIME (BEAKER) 14.0 seconds 11.9-14.2 specimen cl otted (test code = 759) [id number] is a corrected resul t. Previous result was 14.0 seconds on 02/08/2022 at 023 2 PHARMACY PICKING TECHNICIAN INR (BEAKER) (test 1.14 See_Comment specimen clotted code = 370) [id number] is a corrected resul t. Previous result was 1.14 on at 0232 PHARMACY PICKING TECHNICIAN specimen clotted [id number] COUMADIN/WARFARIN INR THERAPY RANGESSTANDARD DOSE: 2.0 - 3.0 Includes: PROPHYLAXIS for venous thrombosis, systemic embolization; TREATMENT for venous thrombosis and/or pulmonary embolus.HIGH RISK: Target INR is 2.5-3.5 for patients with mechanical heart valves.T4, FREE 2022-02-08 03:42:23 Test Item Value Reference Range Interpretation Comments FREE T4 (BEAKER) (test code = 655) 1.01 ng/dL 0.70-1.48 Sawyer [place] Slabs ID - BSTSH/FREE T4 IF [id number] 03:01:25 Test Item Value Reference Range Interpretation Comments THYROID STIMULATING HORMONE 0.108 uIU/mL 0.350-4.940 L (BEAKER) (test code = 772) Sawyer [place] Slabs ID - [id number] 02:35:15 Test Item Value Reference Range Interpretation Comments PHOSPHORUS (BEAKER) (test code = 0.9 mg/dL 2.3-4.7 LL 604) Sawyer Cork Slabs ID - BSPOCT-GLUCOSE [id number] 02:33:44 Test Item Value Reference Range Interpretation Comments POC-GLUCOSE METER 224 mg/dL 70-110 H : TESTED A T [facility] 6720 (BEAKER) (test code = RICH John [facility], 1538) [address]: Sawyer Cork Slabs/Techni roseline ID = [id number] for Salena Willett B-TYPE NATRIURETIC FACTOR (BNP)2022-02-08 02:32:19 Test Item Value Reference Range Interpretation Comments B-TYPE NATRIURETIC PEPTIDE (BEAKER) 105 pg/mL 0-100 H (test code = 700) Sawyer Cork Slabs ID - BSHIGH SENSITIVITY TROPONIN [id number] 02:31:59 Test Item Value Reference Range Interpretation Comments HIGH SENSITIVITY 406 pg/ml See_Comment H [Automated message] TROPONIN I (test code The sy stem which = [id number]) generated this result transmitted ref erence range: <=17. Th e reference range was not used to int erpret this result as normal/abnormal . Sawyer Cork Slabs ID - BSThe DIRECTOR SEARCH STAT High Sensitivity Troponin-I results should be used in conjunctionwith other diagnostic information such as ECG, clinical observations and information, and patient symptoms to aid in the diagnosis of [facility].HEPATIC FUNCTION [id number] 02:28:01 Test Item Value Reference Range Interpretation [...] (test code = 28 U/L 6-55 347) Sawyer Cork Slabs ID - BSC-REACTIVE [id number] 02:28:01 Test Item Value Reference Range Interpretation Comments C-REACTIVE PROTEIN (BEAKER) (test 2.64 mg/dL 0.00-0.50 H code = 676) Sawyer Cork Slabs ID - BSBASIC METABOLIC [id number] 02:28:00 Test Item Value Reference Range Interpretation [...] De scription 1092) sq m Result G1 Norm al or high >=90 G2 Mildly decreased 60-89 [...] not appl icable for dialysis patien ts Sawyer Cork Slabs ID - [id number] 02:28:00 Test Item Value Reference Range Interpretation Comments MAGNESIUM (BEAKER) (test code = 1.4 mg/dL 1.6-2.6 L 627) Sawyer Cork Slabs ID - BSLACTIC ACID, [id number] 02:22:19 Test Item Value Reference Range Interpretation Comments LACTATE BLOOD VENOUS 1.66 mmol/L 0.50-2.20 Specime n slightly (2) (BEAKER) (test hemolyzed code = 5952) Sawyer Cork Slabs ID - BSCBC W/PLT COUNT & AUTO [id number] 02:16:38 Test Item Value Reference Range Interpretation [...] (BEAKER) (test code = 2801) BLOOD GAS, [id number] 01:52:11 Test Item Value Reference Range Interpretation [...] 1819) 21.0 RAD, CHEST, 1 VIEW, NON [id number] 01:44:00Reason for exam:->ET tube confirmationShould this be performed at the bedside?->Yes [facility] 1960 Sex: FFINAL [...] to the upper abdomen. Signed: Taylor Coto MDReport Verified Date/Time: 02/08/2022 01:44:53 ELLANEOUS LAB [id number] 09:26:42 Test Item Value Reference Range Interpretation Comments SCAN RESULT (test code = 1915800) POCT-GLUCOSE [id number] 12:32:49 Test Item Value Reference Range Interpretation Comments POC-GLUCOSE METER 139 mg/dL 70-110 H : TESTED A T [facility] 6720 (BEAKER) (test code = [facility], 1538) 21199: Sawyer Cork Slabs/Techni roseline ID = [id number] for Desi Cox POCT-GLUCOSE [id number] 08:13:43 Test Item Value Reference Range Interpretation Comments POC-GLUCOSE METER 171 mg/dL 70-110 H : TESTED A T [facility] 6720 (BEAKER) (test code = [facility], 1538) [address]: Sawyer Cork Slabs/Techni roseline ID = [id number] for ARA MAZA POCT-GLUCOSE [id number] 17:39:20 Test Item Value Reference Range Interpretation Comments POC-GLUCOSE METER 251 mg/dL 70-110 H : TESTED A T [facility] 6720 (BEAKER) (test code = [facility], 1538) [address]: Sawyer Cork Slabs/Techni roseline ID = [id number] for Nallely Benoit RAD, CHEST, 1 VIEW, NON [id number] 15:39:00Reason for exam:->pacemaker implantShould this be performed at the bedside?->Yes [facility] : 1960 Sex: FFINAL [...] Sol Verified Date/Time: 01/27/2021 15:39:28 Reading Location: [address] Consult Reading Room POCT-GLUCOSE [id number] 10:00:32 Test Item Value Reference Range Interpretation Comments POC-GLUCOSE METER 137 mg/dL 70-110 H : TESTED A T [facility] 6720 (BEAKER) (test code = [facility] [place], 1538) [address]: Sawyer Cork Slabs/Techni roseline ID = [id number] for [place] Fry [id number] 08:10:27 Test Item Value Reference Range Interpretation Comments PHOSPHORUS (BEAKER) (test code = 4.9 mg/dL 2.3-4.7 H 604) Sawyer Cork Slabs ID - BETTIE MLIPID [id number] 08:10:27 Test Item Value Reference Range Interpretation [...] Borderline 130-159 High 160-189 Very High >=190 Sawyer Cork Slabs ID Leopoldo ALEXANDRE [id number] 08:10:26 Test Item Value Reference Range Interpretation Comments MAGNESIUM (BEAKER) (test code = 1.5 mg/dL 1.6-2.6 L 627) Sawyer Cork Slabs ID Leopoldo ALEXANDRE MBASIC METABOLIC [id number] 08:10:25 Test Item Value Reference Range Interpretation [...] S NOT APPLICABLE FOR DIALYSIS PATIEN TS. Sawyer Cork Slabs ID - BETTIE MPROTHROMBIN TIME/[id number] 04:58:03 Test Item Value Reference Range Interpretation Comments PROTIME (BEAKER) 14.6 seconds 11.9-14.2 H (test code = 759) INR (BEAKER) (test 1.16 See_Comment [Automat ed message] code = 370) The system [employer] generated this result transmitted ref erence range: <=5.90. The reference range was not used to int erpret this result as normal/abnormal . RECOMMENDED COUMADIN/WARFARIN INR THERAPY RANGESSTANDARD DOSE: 2.0 - 3.0 Includes: PROPHYLAXIS for venous thrombosis, systemic embolization; TREATMENT for venous thrombosis and/or pulmonary embolus.HIGH RISK: Target INR is 2.5-3.5 for patients with mechanical heart valves.CBC W/PLT COUNT & AUTO [id number] 04:49:23 Test Item Value Reference Range Interpretation [...] PERCENT (BEAKER) (test code = 2801) SARS-COV2/RT-PCR ([facility])2021-01-26 22:45:28 Test Item Value Reference Range Interpretation Comments SARS-COV2/RT-PCR (test Negative Not Detected, Negative, code = 9225364) See external report for linked test SARS-COV-2 PERFORMING LAB [facility] ALLISON (test code = 6397928) Negative result for this test determines that [...] of the Act.Fact Sheet for Healthcare Prov iders:https://www.Outline.15MinutesNOW/sites/default/files/product/documents/Fact_Sheet_HC _Htawnvmuv_Klbz_LIYX-OlV-4.pdfFact Sheet for Healthcare Patients:https://www.Outline.15MinutesNOW/sites/default/files/product/docume nts/Nxaj_Ddhdk_Fhkbzujh_Uylc_KILA-VbJ-9.pdfPerforming Laboratory:[facility], [place] [address]OIUL-OECSKYB METER 2021-01-26 21:59:27 Test Item Value Reference Range Interpretation Comments POC-GLUCOSE METER 153 mg/dL 70-110 H : TESTED A T [facility] 6720 (BEAKER) (test code = [place], 1538) [address]: Sawyer Cork Slabs/Techni roseline ID = [id number] for MADHURI CRISTINA HEMOGLOBIN [id number] 21:33:53 Test Item Value Reference Range Interpretation Comments HEMOGLOBIN A1C (BEAKER) (test code = 10.3 % 4.3-6.1 H 368) TSH/FREE T4 IF [id number] 18:15:41 Test Item Value Reference Range Interpretation Comments THYROID STIMULATING HORMONE 0.816 uIU/mL 0.350-4.940 (BEAKER) (test code = 772) Sawyer Cork Slabs ID - [id number] 17:57:59 Test Item Value Reference Range Interpretation Comments MAGNESIUM (BEAKER) (test code = 1.5 mg/dL 1.6-2.6 L 627) Sawyer Cork Slabs ID - [id number] 17:57:59 Test Item Value Reference Range Interpretation Comments PHOSPHORUS (BEAKER) (test code = 3.1 mg/dL 2.3-4.7 604) Sawyer Cork Slabs ID - BSBASIC METABOLIC [id number] 17:57:58 Test Item Value Reference Range Interpretation [...] S NOT APPLICABLE FOR DIALYSIS PATIEN TS. Sawyer Cork Slabs ID - BSPOCT-GLUCOSE [id number] 17:44:45 Test Item Value Reference Range Interpretation Comments POC-GLUCOSE METER 199 mg/dL 70-110 H : Notified RN/MD: (WAQAS) (test code = TESTED AT [facility] 6720 1538) [facility], [address]: Sawyer Cork Slabs/Techni roseline ID = [id number] for GABI MYLES
[2022-06-09 05:14] LABS: Barbiturates NEGATIVE (NEGATIVE); Benzodiazepines NEGATIVE (NEGATIVE); Cocaine NEGATIVE (NEGATIVE); METHAMPHETAM NEGATIVE (NEGATIVE); Methadone NEGATIVE (NEGATIVE); Opiates NEGATIVE (NEGATIVE); Phencyclidine NEGATIVE (NEGATIVE); THC Cannibis NEGATIVE (NEGATIVE)
[2022-06-09 05:30] LABS: Absolute Lymphocytes (CBC) 1.6 K/uL (0.7-4.9); Hematocrit 44.2 % (36.0-45.0); MPV 9.1 fL (7.6-11.3); RBC Red Blood Cell Count 5.14 M/uL (3.86-4.86)
[2022-06-09 05:43] LABS: Protime INR 0.89
[2022-06-09 05:55] LABS: ALT/SGPT 22 U/L (13-56); AST/SGOT 14 U/L (15-37); Albumin 3.5 g/dL (3.4-5.0); Alkaline Phosphatase 152 U/L (45-117); BUN Blood Urea Nitrogen 15 mg/dL (7-18); Bicarbonate 30 mEq/L (21-32); Bilirubin Direct 0.1 mg/dL (0-0.2); Bilirubin Total 0.4 mg/dL (0.2-1.0); Glomerular Filtration Rate 78 ml/min (=/>90); Potassium 4.3 mEq/L (3.5-5.1); Protein, Total 8.5 g/dL (6.4-8.2); Sodium Level 126 mEq/L (136-145)
[2022-06-09 05:56] LABS: Glucose Level 553 mg/dL (74-106)
[2022-06-09] MEDS ORDERED: INSULIN -REGULAR HUMAN 50 UNIT/0.5 ML ML ONE (07:04)
--- NOTE | 2022-06-09 07:33 | ER ---
Nurse's Notes [facility] Name: Harriet Perera Age: 61 yrs Sex: Female : 1960 Arrival Date: 06/09/2022 Time: 03:44 Bed 17 Private MD: Diagnosis: Hyperglycemia, unspecified;Poisoning by other opioids, accidental (unintentional), initial encounter Presentation: 06/09 03:55 Chief complaint: EMS states: Toned out for an accidental overdose of tramadol, Pt ll3 states she usually has her daily meds in an empty pill container and accidently took the wrong one that contained 500 MG worth of tramadol. pt c/o feeling groggy. Coronavirus screen: Vaccine status: Patient reports receiving the 2nd dose of the covid vaccine. At this time, the client does not indicate any symptoms associated with coronavirus-19. Ebola Screen: No symptoms or risks identified at this time. Initial Sepsis Screen: Does the patient meet any 2 criteria? No. Patient's initial sepsis screen is negative. Does the patient have a suspected source of infection? No. Patient's initial sepsis screen is negative. Risk Assessment: Do you want to hurt yourself or someone else? Patient reports no desire to harm self or others. Onset of symptoms was June 09, 2022. 03:55 Method Of Arrival: EMS: [facility] ll3 03:55 Acuity: CHRIS 3 ll3 04:01 Care prior to arrival: Medication(s) given: Normal saline infusion, 350 ml Glucose ll3 check: 350. Triage Assessment: 03:57 General: Appears comfortable, Behavior is calm, cooperative. Pain: Denies pain. Neuro: ll3 Level of Consciousness is awake, alert, obeys commands, Oriented to person, place, time, situation, Reports feeling "groggy". Cardiovascular: Patient's skin is warm and dry. Rhythm is sinus rhythm. Respiratory: Respiratory effort is even, unlabored, Respiratory pattern is regular, symmetrical. Derm: Skin is pink, warm \\T\\ dry. Historical: - Allergies: 03:57 Motrin; ll3 03:57 surgical tape; ll3 - Home Meds: 03:57 pantoprazole 40 mg oral granules delayed release for susp packet once [Active]; ll3 atorvastatin 10 mg oral tablet daily [Active]; Chantix 1 mg oral tablet [Active]; Metoprolol Tartrate Oral [Active]; Tramadol Oral [Active]; Rybelsus oral [Active]; - PMHx: 03:57 Chronic obstructive lung disease; Congestive heart failure; Diabetes - NIDDM; ll3 Hypercholesterolemia; Hypertension; - PSHx: 03:57 Cholecystectomy; pacemaker; ll3 - Immunization history:: Client reports receiving the 2nd dose of the Covid vaccine. - Social history:: Smoking status: Patient reports the use of cigarette tobacco products, denies chronic smoking, but will smoke occasionally. Screenin:01 [facility] ED Fall Risk Assessment (Adult) History of falling in the last 3 months, ll3 including since admission No falls in past 3 months (0 pts) Confusion or Disorientation No (0 pts) Intoxicated or Sedated No (0 pts) Impaired Gait No (0 pts) Mobility Assist Device Used No (0 pt) Altered Elimination No (0 pt) Score/Fall Risk Level 0 - 2 = Low Risk Oriented to surroundings, Maintained a safe environment, Educated pt \\T\\ family on fall prevention, incl call for assistance when getting out of bed. Abuse screen: Denies threats or abuse. Denies injuries from another. Nutritional screening: No deficits noted. Tuberculosis screening: No symptoms or risk factors identified. Assessment: 03:57 General: See triage assessment. 3 04:08 Reassessment: Poison control , they recommend seizure precautions. 3 07:00 Reassessment: Patient appears in no apparent distress at this time. Patient and/or kc6 family updated on plan of care and expected duration. Pain level reassessed. Patient is alert, oriented x 3, equal unlabored respirations, skin warm/dry/pink. Vital Signs: 03:55 BP 142 / 72; Pulse 82; Resp 18; Temp 97.2(TE); Pulse Ox 97% on R/A; Weight 129.27 kg ll3 (R); Height 5 ft. 5 in. (R); 06:21 BP 139 / 76; Pulse 75; Resp 17; Pulse Ox 98% on R/A; ll3 07:17 BP 131 / 68; Pulse 81; Resp 18 S; Pulse Ox 98% on NC; kc6 03:55 Body Mass Index 47.43 (129.27 kg, 165.1 cm) 3 ED Course: 03:54 Patient arrived in ED. ll3 03:56 Keith Baez MD is Attending Physician. kdr 03:57 Triage completed. ll3 03:57 Arm band placed on Patient placed in an exam room, on a stretcher, on pulse oximetry. ll3 04:01 Patient has correct armband on for positive identification. Placed in gown. Bed in low ll3 position. Call light in reach. Side rails up X 1. Adult w/ patient. 07:00 Report received from Jack Meyer RN. kc6 07:05 Attending Physician role handed off by Keith Baez MD bs3 07:05 Dane Harrison MD is Attending Physician. bs3 07:42 No provider procedures requiring assistance completed. IV discontinued, intact, kc6 bleeding controlled, No redness/swelling at site. Pressure dressing applied. Administered Medications: 06:55 Not Given (Physician Discretion): NS 0.9% IV 1000 ml IV at 1 bolus Per protocol; 1000 ll3 mL bolus 07:07 Drug: Insulin Regular Human IVP 12 units {Co-Signature: ha1 (Erika Ortega RN).} Route: ll3 IVP; Site: left hand; Medication: 07:43 VIS not applicable for this client. kc6 Outcome: 07:32 Discharge ordered by . bs3 07:42 Discharged to home via wheelchair, with significant other. kc6 07:42 Condition: improved 07:42 Discharge instructions given to patient, Instructed on discharge instructions, follow up and referral plans. Demonstrated understanding of instructions, follow-up care. 07:43 Patient left the ED. kc6 Signatures: Keith Baez MD MD kdr Loubet, Lynsea, RN RN 3 Jayshree Perera RN RN kc6 Dane Harrison MD MD 3 Erika Ortega RN ha1
--- NOTE | 2022-06-09 07:33 | EDPHYS ---
Physician Documentation [facility] Name: Harriet Perera Age: 61 yrs Sex: Female : 1960 Arrival Date: 06/09/2022 Time: 03:44 Bed 17 Private MD: ED Physician Dane Harrison HPI: 06/09 07:25 This 61 yrs old Female presents to ER via EMS with complaints of accidental bs3 ingestion . 07:25 pt has a hx of copd, chf, dm not on insulin presents after taking the wrong pills, was bs3 supposed to take her night time meds, but took 10 tramadol instead due to grabbing the wrong pills, no si, hi, or any concerns for wanting to her herself. Per pt, a1c over 12. . 07:25 Pt notes she is o2 dependant. SHe feels tired, but requests to go home and has no other bs3 complaints. . Historical: - Allergies: 03:57 Motrin; ll3 03:57 surgical tape; ll3 - Home Meds: 03:57 pantoprazole 40 mg oral granules delayed release for susp packet once [Active]; ll3 atorvastatin 10 mg oral tablet daily [Active]; Chantix 1 mg oral tablet [Active]; Metoprolol Tartrate Oral [Active]; Tramadol Oral [Active]; Rybelsus oral [Active]; - PMHx: 03:57 Chronic obstructive lung disease; Congestive heart failure; Diabetes - NIDDM; ll3 Hypercholesterolemia; Hypertension; - PSHx: 03:57 Cholecystectomy; pacemaker; ll3 - Immunization history:: Client reports receiving the 2nd dose of the Covid vaccine. - Social history:: Smoking status: Patient reports the use of cigarette tobacco products, denies chronic smoking, but will smoke occasionally. ROS: 07:25 Constitutional: Negative for fever, chills bs3 07:25 All other systems are negative. Exam: 07:25 Constitutional: This is a well developed, well nourished patient who is awake, alert, bs3 and in no acute distress. Head/Face: Normocephalic, atraumatic. Eyes: Pupils equal round and reactive to light, extra-ocular motions intact. Lids and lashes normal. ENT: mmm, no posterior phyarngeal erythema Neck: Trachea midline, no thyromegaly, no neck stiffness Chest/axilla: Normal chest wall appearance and motion. Nontender with no deformity. No lesions are appreciated. Cardiovascular: Regular rate and rhythm with a normal S1 and S2. symmetric pulses in upper extremities Respiratory: Lungs have equal breath sounds bilaterally, clear to auscultation, no respiratory distress Abdomen/GI: Soft, non-tender, no rebound or guarding MS/ Extremity: Pulses equal, no cyanosis. Neurovascular intact. Full, normal range of motion. Neuro: Awake and alert, GCS 15, oriented to person, place, time, and situation. Cranial nerves II-XII grossly intact. Motor strength 5/5 in all extremities. Sensory grossly intact. Psych: Awake, alert, with orientation to person, place and time. Behavior, mood, and affect are within normal limits. Vital Signs: 03:55 BP 142 / 72; Pulse 82; Resp 18; Temp 97.2(TE); Pulse Ox 97% on R/A; Weight 129.27 kg ll3 (R); Height 5 ft. 5 in. (R); 06:21 BP 139 / 76; Pulse 75; Resp 17; Pulse Ox 98% on R/A; ll3 07:17 BP 131 / 68; Pulse 81; Resp 18 S; Pulse Ox 98% on NC; kc6 03:55 Body Mass Index 47.43 (129.27 kg, 165.1 cm) ll3 MDM: 07:25 Differential diagnosis: pt with accidental ingestion, pt appears chronically ill and bs3 older than stated age, she is sitting comfortably on o2, she wants to go home, pt advised that she needs insulin, advised to talk with her SOCIAL WORK ASSISTANT or ask for a referral to a physician given her management. Advised to check glucose and return with any concerning symptoms. Data reviewed: vital signs, EMS record. 07:32 Patient medically screened. bs3 06/09 03:57 Order name: Acetaminophen; Complete Time: 06:49 kdr 06/09 03:57 Order name: Basic Metabolic Panel; Complete Time: 06:49 kdr 06/09 03:57 Order name: CBC with Diff; Complete Time: 06:49 kdr 06/09 03:57 Order name: ETOH Level; Complete Time: 06:49 kdr 06/09 03:57 Order name: Hepatic Function; Complete Time: 06:49 kdr 06/09 03:57 Order name: PT-INR; Complete Time: 06:49 kdr 06/09 03:57 Order name: Ptt, Activated; Complete Time: 06:49 kdr 06/09 03:57 Order name: Salicylate; Complete Time: 06:49 kdr 06/09 03:57 Order name: Urine Drug Screen; Complete Time: 06:49 kdr 06/09 03:57 Order name: IV Saline Lock; Complete Time: 06:21 kdr 06/09 03:57 Order name: Labs collected and sent; Complete Time: 06:21 kdr Administered Medications: 06:55 Not Given (Physician Discretion): NS 0.9% IV 1000 ml IV at 1 bolus Per protocol; 1000 ll3 mL bolus 07:07 Drug: Insulin Regular Human IVP 12 units {Co-Signature: ha1 (Erika Ortega RN).} Route: ll3 IVP; Site: left hand; Disposition Summary: 06/09/22 07:32 Discharge Ordered Location: Home bs3 Problem: new bs3 Symptoms: have improved bs3 Condition: Stable bs3 Diagnosis - Hyperglycemia, unspecified bs3 - Poisoning by other opioids, accidental (unintentional), initial encounter bs3 Followup: bs3 - With: Private Physician - When: 48 Hours - Reason: Re-evaluation by your physician Discharge Instructions: - Discharge Summary Sheet bs3 - Accidental Drug Poisoning, Pediatric bs3 - Hyperglycemia bs3 Forms: - Medication Reconciliation Form bs3 - Thank You Letter bs3 - Antibiotic Education bs3 - Prescription Opioid Use bs3 Signatures: Dispatcher [employer] Keith Valderrama MD MD kdr Loubet, Lynsea RN RN 3 Dane Harrison MD MD 3 Erika Ortega RN ha1
[2022-06-09 07:52] VITALS: TEMP 97.2
[2022-06-09 07:54] VITALS: O2SAT 98
[2022-06-09 07:56] VITALS: BP 131/68
== END 2022-06-09 07:43 | disposition home or self-care (01) ==
LOC: ER 03:44
DX: T40.2X1A Poisoning by other opioids, accidental (unintentional), initial encounter (principal); E11.65 Type 2 diabetes mellitus with hyperglycemia; I10 Essential (primary) hypertension; F17.210 Nicotine dependence, cigarettes, uncomplicated; Z95.0 Presence of cardiac pacemaker; Z88.6 Allergy status to analgesic agent; Z91.048 Other nonmedicinal substance allergy status
CPT/HCPCS: 85025; 80048; 36415; 85610; 82947; 80076; 85730; 80307; 96374; 99284; J1815; G0480 ×3

== ENCOUNTER 2023-08-12 11:46 | Emergency (ER) | payer OTHER ==
[2023-08-12] MEDS ORDERED: ROCURONIUM 50 MG/5 ML VIAL IV ONE (11:47)
[2023-08-12] MEDS ORDERED: ETOMIDATE 20 MG/10 ML VIAL IV ONE ×2 (11:47→13:45)
[2023-08-12] MEDS ORDERED: NOREPINEPHRINE BITARTRATE/D5W 4 MG/250 ML BAG IV ONE (12:08)
[2023-08-12 12:43] LABS: Absolute Lymphocytes (CBC) 1.2 K/uL (0.7-4.9); Absolute Monocytes 0.4 K/uL (0.1-1.3); Absolute Neutrophil 11.8 K/uL (1.8-8.0); Basophils % 0.2 % (0-1.3); Eosinophils % 0.1 % (0-4.4); Hematocrit 33.2 % (36.0-45.0); Lymphocytes % 8.9 % (15.3-44.8); MCH 26.6 pg (27.0-35.0); MCHC 30.2 g/dL (32.0-36.0); MCV 88.1 fL (80-100); MPV 9.7 fL (7.6-11.3); Monocytes % 2.8 % (3.3-12.3); Nucleated Red Blood Cells % 0.1 % (0-0); Platelets 358 thou/uL (152-406); RBC Red Blood Cell Count 3.77 M/uL (3.86-4.86); Red Cell Distribution Width 22.7 % (12.1-15.2)
[2023-08-12 12:52] LABS: PT Prothrombin Time 14.2 SECONDS (9.4-12.5); PTT, Activated Partial Thromb 32.9 SECONDS (24.3-36.9); Protime INR 1.3
[2023-08-12] MEDS ORDERED: Magnesium Sulfate 2gm IVPB 2 G/50 ML BAG IV ONE (12:59)
[2023-08-12 13:04] LABS: Anion Gap 13.6 mEq/L (5.0-15.0); Troponin High Sensitivity 33.7 pg/mL (<58.9)
[2023-08-12 13:07] LABS: Potassium 7.6 mEq/L (3.5-5.1)
[2023-08-12] MEDS ORDERED: CALCIUM GLUCONATE 1 GM IVPB 2 GM/100 ML BAG IV ONE (13:09)
[2023-08-12 13:38] LABS: Anion Gap 18.9 mEq/L (5.0-15.0); Potassium 3.9 mEq/L (3.5-5.1)
[2023-08-12] MEDS ORDERED: propofoL 1,000 MG/100 ML VIAL IV ONE (13:38)
[2023-08-12 13:39] LABS: Anisocytosis 2+; Blood Morphology Comment NOTED (NOT SEEN); Macrocytosis 1+; Microcytosis 1+; Platelet Estimate ADEQ; Platelets Clumped NOTED; White Blood Cell Scan OK (OK)
--- NOTE | 2023-08-12 13:39 | EDPHYS ---
Physician Documentation [facility] Name: Harriet Perera Age: 62 yrs Sex: Female : 1960 Arrival Date: 08/12/2023 Time: 11:46 Bed 2 Private MD: ED Physician Luan Figueroa HPI: 08/11 15:30 This 62 yrs old Female presents to ER via EMS with complaints of Unresponsive.ec2 15:30 Patient arrives today for evaluation due to concern for decreased responsiveness. EMS ec2 reports they had noticed low heart rates in the tens to the 30s. Low blood pressures as well. Patient with no complaints, no chest pain or difficulty breathing. Had given 1 mg of atropine with no improvement in symptoms. . Historical: - Allergies: 12:10 Motrin; nj1 12:10 surgical tape; nj1 - PMHx: 12:10 Chronic obstructive lung disease; Congestive heart failure; Diabetes - NIDDM; nj1 Hypercholesterolemia; Hypertension; - PSHx: 12:10 Cholecystectomy; pacemaker; nj1 - Immunization history:: Adult Immunizations unknown. - Infectious Disease History:: unable to obtain at this time. - Social history:: Smoking status: unknown. - Code Status:: Full code. ROS: 15:30 Constitutional: as per hpi ec2 Exam: 15:30 Constitutional: GEN: NAD Head: atraumatic Eyes: EOMI Ears: External ears are ec2 normal. CV: Bradycardia, no lower extremity edema. LUNGS: no respiratory distress ABD: non-distended SKIN: no evidence of rashes MSK: no evidence of trauma NEURO: Drowsy individual moves all extremities and arouses to verbal and painful stimuli. Vital Signs: 11:53 Pulse 24; Resp 24; Pulse Ox 93% on 15 lpm Non-rebreather mask; Weight 140 kg (M); nj1 12:08 BP 66 / 49; Pulse 12; Resp 26 S; Pulse Ox 96% on BiPAP; kc6 12:12 BP 49 / 15; Pulse 12; Resp 26 S; Pulse Ox 99% on BiPAP; kc6 12:16 BP 94 / 82; Pulse 25; Resp 20 S; Pulse Ox 94% on BiPAP; kc6 12:18 BP 81 / 53; Pulse 27; Resp 20 S; Pulse Ox 98% on BiPAP; kc6 12:21 BP 62 / 31; Pulse 22; Resp 21 S; Pulse Ox 96% on BiPAP; kc6 12:33 BP 60 / 35; Pulse 22; Resp 19 S; Pulse Ox 99% on BiPAP; kc6 12:49 BP 118 / 82; Pulse 40; Resp 16 S; Pulse Ox 100% on BiPAP; kc6 12:51 BP 129 / 78; Pulse 40; Resp 16 S; Pulse Ox 100% on BiPAP; kc6 12:54 BP 185 / 86; Pulse 92; Resp 20 S; Pulse Ox 100% on BiPAP; kc6 13:15 BP 157 / 36; Pulse 70; Resp 23 S; Pulse Ox 100% on BiPAP; kc6 13:21 BP 178 / 44; Pulse 47; Resp 18 S; Pulse Ox 100% on BiPAP; kc6 13:24 BP 183 / 37; Pulse 48; Resp 18 S; Pulse Ox 100% on BiPAP; kc6 13:27 BP 187 / 32; Pulse 48; Resp 17 S; Pulse Ox 100% on BiPAP; kc6 13:33 BP 154 / 74; Pulse 38; Resp 21 S; Pulse Ox 100% on BiPAP; kc6 13:36 BP 167 / 97; Pulse 56; Resp 15 S; Pulse Ox 100% on BiPAP; kc6 13:39 BP 139 / 34; Pulse 26; Resp 15 S; Pulse Ox 100% on BiPAP; kc6 13:45 BP 173 / 61; Pulse 45; Resp 19 S; Pulse Ox 99% on BiPAP; kc6 13:48 BP 184 / 66; Pulse 64; Resp 19 S; Pulse Ox 97% on BiPAP; kc6 13:51 BP 203 / 60; Pulse 63; Resp 12 A; Pulse Ox 93% on ETT ambu; kc6 13:54 BP 208 / 75; Pulse 47; Resp 12 A; Pulse Ox 100% on ETT vent; kc6 13:57 BP 219 / 85; Pulse 48; Resp 12 A; Pulse Ox 98% on ETT vent; kc6 14:00 BP 208 / 79; Pulse 47; Resp 18 A; Pulse Ox 99% on ETT vent; kc6 Procedures: 15:35 Intubation: Intubated orally using # 4 Jose F blade with 7.5 mm ETT. was successful ec2 on first attempt. Ventilated with ventilator. Cricoid pressure applied during procedure. Tube secured with ETT simpson Placement verified by CXR, CO2 detector with (+) color change, auscultating bilateral breath sounds, Patient tolerated well. MDM: 12:21 Patient medically screened. ec2 15:30 Data reviewed: vital signs. ED course: Patient arrives today due to concern of ec2 unresponsiveness with initial blood pressures noted to be markedly bradycardic. Patient also with hypertensive blood pressures on arrival. Patient noted to have significant drowsiness, initial blood gas with respiratory acidosis. I started the patient on Levophed to improve the patient's heart rate with some improvement, added on dobutamine to help as well. Ultimately was able to improve the patient's bradycardia as well as symptomatic bradycardia and alertness status. I placed the patient on BiPAP given the respiratory acidosis with improvement in respiratory status and mental status as well.. 15:32 ED course: Multiple EKGs, most pertinent was initial EKG that was independently ec2 reviewed and interpreted by me that showed significant bradycardia with no ST elevations. After reassessing the patient I obtained a repeat EKG that showed concern for STEMI with heart rate at 79, ST elevation in the inferior leads as well as V1, with ST depressions in the lateral leads. I discussed the case with cardiology at [facility] who did not feel this met STEMI criteria. He recommended continuing symptomatic bradycardia management at this time. Accordingly we would not aggressively treat with thrombolytics at this time. Additional EKG obtained and independently reviewed and interpreted by me, shows bradycardia with a rate of 48, no acute ST segment elevations, intervals nonconcerning.. 15:34 ED course: I discussed the case with cardiology at [facility], discussed the ec2 case with motor man at [facility], ultimately we all agreed that we would proceed with symptomatic bradycardia management. We did not activate the Metal Furnace Operator. Patient with waxing and waning mental status, I decided to electively intubate the patient. Intubated without issue. Patient on epinephrine and dobutamine with normotensive blood pressures as well as detectable pulse in the 70s. Family updated at the bedside. Patient transferred to [facility] for continued care, symptomatic bradycardia, further electrophysiology management and evaluation as well. Overall patient is a critically ill individual who has symptomatic bradycardia with been stabilized to the best of her capabilities. I did not place a central line due to increment weather and concern for inability to transfer the patient to definitive care. Family expressed understanding. Transferring physicians also expressed understanding. . 15:36 ED course: Presentation chest x-ray independently reviewed and interpreted by me, shows ec2 appropriately placed ET tube. . 15:36 ED course: Additionally patient also noted to have dysrhythmia with possible torsades, ec2 give the patient calcium, magnesium. . 15:38 ED course: Additionally patient with markedly abnormal lab work. Noted to have ec2 hyperkalemia with potassium of 7.6, patient given potassium stabilizing agents. Was also called regarding possible marked hyperglycemia at 1700 however this does not appear to be consistent with clinical picture, patient with fingersticks that are within more appropriate and reasonable ranges. . 08/11 12:14 Order name: Glucose, Ancillary Testing; Complete Time: 12:46 EDMS 08/11 12:21 Order name: Basic Metabolic Panel; Complete Time: 13:14 ec2 08/11 12:21 Order name: CBC with Diff; Complete Time: 13:44 ec2 08/11 12:21 Order name: NT PRO-BNP; Complete Time: 13:14 ec2 08/11 12:21 Order name: PT-INR; Complete Time: 13:14 ec2 08/11 12:21 Order name: Troponin HS; Complete Time: 13:14 ec2 08/11 12:21 Order name: Ptt, Activated; Complete Time: 13:14 ec2 08/11 13:08 Order name: BMP; Complete Time: 13:55 ec2 08/11 13:40 Order name: CBC Smear Scan; Complete Time: 13:44 EDMS 08/11 14:09 Order name: Glucose, Ancillary Testing; Complete Time: 15:37 EDMS 08/11 12:12 Order name: XRAY Chest (1 view); Complete Time: 15:37 eb 08/11 12:21 Order name: Cardiac monitoring; Complete Time: 12:42 ec2 08/11 12:21 Order name: EKG - Nurse/Tech; Complete Time: 12:46 ec2 08/11 12:21 Order name: IV Saline Lock; Complete Time: 12:46 ec2 08/11 12:21 Order name: Labs collected and sent; Complete Time: 12:42 ec2 08/11 12:21 Order name: O2 Per Protocol; Complete Time: 12:43 ec2 08/11 12:21 Order name: O2 Sat Monitoring; Complete Time: 12:43 ec2 Administered Medications: 12:15 Drug: Norepinephrine IV 0.1 mcg/kg/min IV at calculated rate Per protocol; (Standard kc6 concentration 4 mg / 250 mL D5W); Recommended max rate 3 mcg/kg/min; Titrate 0.05 mcg/kg/min as often as every 5 minutes to achieve goal (see titration policy); Goal parameter MAP greater than 65 mmHg. Route: IV; Rate: calculated rate; Site: left antecubital; 12:17 Follow up: Rate change 0.5 mcg/kg/min kc6 12:19 Follow up: Rate change 1 mcg/kg/min kc6 13:23 Follow up: Response: No adverse reaction; IV Status: Completed infusion; IV Intake: kc6 250ml 12:30 Drug: Atropine IVP 1 mg IVP once Route: IVP; Site: right forearm; kc6 12:35 Follow up: Response: No adverse reaction; Cardiac rhythm is unchanged kc6 12:34 Drug: DOBUTamine IV (500 mg/250mL premix) 2.5 mcg/kg/min IV at calculated rate See kc6 Administration Instructions; Recommended max rate 20 mcg/kg/min; Titrate 2.5 mcg/kg/min as often as every 5 minutes to achieve goal (see titration policy); Goal parameter MAP greater than 65 mmHg. Route: IV; Rate: calculated rate; Site: left antecubital; 14:41 Follow up: Response: No adverse reaction; IV Status: Infusion continued upon transfer; kc6 IV Intake: 250ml 12:37 Drug: Calcium Chloride IVP 1 grams IVP once Route: IVP; Site: left antecubital; kc6 12:45 Follow up: Response: No adverse reaction kc6 12:47 CANCELLED (Other Intervention Used): epinephrine (pf)0.01 mcg/kg/min IV at 1 mcg/kg/min kc6 See Administration Instructions; Standard concentration 4 mg / 250 mL D5W; Recommended max rate 2 mcg/kg/min; Titrate 0.01 mcg/kg/min as often as every 3 minutes to achieve goal [see titration policy]; Goal parameter MAP greater than 65 mmHg. 12:55 Drug: EPINEPHrine (PF) IV 0.01 mcg/kg/min IV at calculated rate See Administration kc6 Instructions; Standard concentration 4 mg / 250 mL D5W; Recommended max rate 2 mcg/kg/min; Titrate 0.01 mcg/kg/min as often as every 3 minutes to achieve goal [see titration policy]; Goal parameter MAP greater than 65 mmHg. Route: IV; Rate: calculated rate; Site: left antecubital; 14:41 Follow up: Response: No adverse reaction; Rate change 0.7 mcg/kg/min; IV Status: kc6 Infusion continued upon transfer; IV Intake: 250ml 13:03 Drug: Magnesium Sulfate IVPB 2 grams IVPB once over 2 hrs Route: IVPB; Infused Over: 2 kc6 hrs; Site: right forearm; 13:15 Follow up: Response: No adverse reaction; IV Status: Completed infusion; IV Intake: kc6 100ml 13:10 Drug: Sodium Bicarbonate IVP 2 amp IVP once; (50 mL); equals 50 mEq Route: IVP; Site: [facility] right forearm; 13:15 Follow up: Response: No adverse reaction 6 13:13 Drug: Calcium Gluconate IVPB 2 grams IVPB once over 60 mins; (mix in NS 100 mL) Route: kc6 IVPB; Infused Over: 60 mins; Site: right forearm; 13:30 Follow up: Response: No adverse reaction; IV Status: Completed infusion; IV Intake: kc6 200ml 13:44 CANCELLED (Physician Discretion): ns 0.9% 2000 ml IV at 1 bolus Per protocol; 1000 mL ec2 bolus 13:50 Drug: Etomidate IVP 30 mg IVP once Route: IVP; Site: right forearm; kc6 13:55 Follow up: Response: No adverse reaction; RASS: Deep sedation (-4) [facility] 13:50 Drug: Rocuronium IVP 100 mg IVP once Route: IVP; Site: right forearm; kc6 13:55 Follow up: Response: No adverse reaction kc6 14:11 Drug: Propofol IV 5 mcg/kg/min IV at calculated rate See Administration Instructions; kc6 Standard concentration 1000 mg / 100 mL; Recommended max rate 50 mcg/kg/min; Titrate 2 mcg/kg/min every 5 minutes to achieve goal (see titration policy); Goal parameter RASS score 0 to -2 Route: IV; Rate: calculated rate; Site: right forearm; 14:41 Follow up: Response: No adverse reaction; RASS: Deep sedation (-4); IV Status: Infusion kc6 continued upon transfer; IV Intake: 100ml 14:12 Drug: NS 0.9% IV 1000 ml IV at 1 bolus Per protocol; 1000 mL bolus Route: IV; Rate: 1 kc6 bolus; Site: right wrist; 14:41 Follow up: Response: No adverse reaction; IV Status: Infusion continued upon transfer; kc6 IV Intake: 1000ml Disposition Summary: 08/12/23 13:38 Transfer Ordered Notes: Transfer Location: [facility] ec2 Reason: Higher level of care ec2 Condition: Stable ec2 Problem: new ec2 Symptoms: have improved ec2 Accepting Physician: transferring doc(08/12/23 14:41) kc6 Diagnosis - Bradycardia, unspecified ec2 Forms: - Medication Reconciliation Form ec2 - SBAR form ec2 Critical care time excluding procedures: 15:36 Critical care time: Bedside Care: 75 minutes, Consultation: 20 minutes. Total time: 95 ec2 minutes Signatures: Dispatcher [employer] Jayshree Garsia RN RN kc6 Bina Davis RN RN nj1 Luan Figueroa MD MD ec2 Corrections: (The following items were deleted from the chart) 12:47 12:21 EPINEPHrine (PF) IV 0.01 mcg/kg/min IV at 1 mcg/kg/min See Administration kc6 Instructions; Standard concentration 4 mg / 250 mL D5W; Recommended max rate 2 mcg/kg/min; Titrate 0.01 mcg/kg/min as often as every 3 minutes to achieve goal [see titration policy]; Goal parameter MAP greater than 65 mmHg. ordered. nj1 13:44 13:43 NS 0.9% IV 2000 ml IV at 1 bolus Per protocol; 1000 mL bolus ordered. ec2 ec2 14:41 13:38 transferring doc ec2 kc6
--- NOTE | 2023-08-12 13:39 | ER ---
Nurse's Notes [facility] Name: Harriet Perera Age: 62 yrs Sex: Female : 1960 Arrival Date: 08/12/2023 Time: 11:46 Bed 2 Private MD: Diagnosis: Bradycardia, unspecified Presentation: 08/11 11:53 Chief complaint: EMS states: Not acting right, low heart rate, high blood pressure per nj1 husbands statement. 11:53 Risk Assessment: Do you want to hurt yourself or someone else? Unable to obtain. Onset nj1 of symptoms was August 12, 2023. 11:53 Method Of Arrival: EMS: [facility] nj1 11:53 Acuity: CHRIS 1 nj1 11:53 Coronavirus screen: At this time, the client does not indicate any symptoms associated [facility] with coronavirus-19. Ebola Screen: No symptoms or risks identified at this time. Initial Sepsis Screen: Does the patient meet any 2 criteria? Systolic BP < 90 mmHg. Mean Arterial Pressure (MAP) < 65. Does the patient have a suspected source of infection? No. Patient's initial sepsis screen is negative. 11:53 Care prior to arrival: IV initiated. 20 GA, in the right wrist. kc6 Triage Assessment: 11:53 General: Appears distressed, uncomfortable, obese, well groomed, well developed, 6 Behavior is drowsy. Historical: - Allergies: 12:10 Motrin; nj1 12:10 surgical tape; nj1 - PMHx: 12:10 Chronic obstructive lung disease; Congestive heart failure; Diabetes - NIDDM; nj1 Hypercholesterolemia; Hypertension; - PSHx: 12:10 Cholecystectomy; pacemaker; nj1 - Immunization history:: Adult Immunizations unknown. - Infectious Disease History:: unable to obtain at this time. - Social history:: Smoking status: unknown. - Code Status:: Full code. Screenin:53 [facility] ED Fall Risk Assessment (Adult) History of falling in the last 3 months, kc6 including since admission No falls in past 3 months (0 pts) Confusion or Disorientation No (0 pts) Intoxicated or Sedated No (0 pts) Impaired Gait No (0 pts) Mobility Assist Device Used No (0 pt) Altered Elimination No (0 pt) Score/Fall Risk Level 0 - 2 = Low Risk. Abuse screen: Denies threats or abuse. Denies injuries from another. Nutritional screening: No deficits noted. Tuberculosis screening: No symptoms or risk factors identified. Assessment: 11:50 General: Appears distressed, uncomfortable, obese, well groomed, well developed, kc6 Behavior is drowsy. Pain: Denies pain. Neuro: Level of Consciousness is obeys commands, obtunded, Oriented to person. Cardiovascular: Denies chest pain, shortness of breath, Capillary refill is > 3 seconds Rhythm is variable bradycardia at 12-34bpm. Respiratory: Airway is patent Trachea midline Respiratory effort is even, labored, Respiratory pattern is regular, symmetrical. GI: No signs and/or symptoms were reported involving the gastrointestinal system. : No signs and/or symptoms were reported regarding the genitourinary system. EENT: No signs and/or symptoms were reported regarding the EENT system. Derm: Skin with poor turgor Skin is dry, Skin is dusky, cyanotic Skin temperature is cool Rash noted that is red, on pelvis. Musculoskeletal: No signs and/or symptoms reported regarding the musculoskeletal system. Circulation, motion, and sensation intact. Capillary refill is > 3 seconds, Range of motion: intact in all extremities. 11:50 Reassessment: pt on a NRB at 15L/min by EMS, pt appears to be dusky and cyanotic upon kc6 transfer from EMS to ER stretcher. RT called, pt placed on BIPAP and ZOLL monitor at this time. 12:50 Reassessment: Patient appears in no apparent distress at this time. No changes from kc6 previously documented assessment. Patient and/or family updated on plan of care and expected duration. Pain level reassessed. 13:50 Reassessment: Patient appears in no apparent distress at this time. No changes from kc6 previously documented assessment. Patient and/or family updated on plan of care and expected duration. Pain level reassessed. 14:41 Reassessment: Patient appears in no apparent distress at this time. No changes from kc6 previously documented assessment. Patient and/or family updated on plan of care and expected duration. Pain level reassessed. Vital Signs: 11:53 Pulse 24; Resp 24; Pulse Ox 93% on 15 lpm Non-rebreather mask; Weight 140 kg (M); nj1 12:08 BP 66 / 49; Pulse 12; Resp 26 S; Pulse Ox 96% on BiPAP; kc6 12:12 BP 49 / 15; Pulse 12; Resp 26 S; Pulse Ox 99% on BiPAP; kc6 12:16 BP 94 / 82; Pulse 25; Resp 20 S; Pulse Ox 94% on BiPAP; kc6 12:18 BP 81 / 53; Pulse 27; Resp 20 S; Pulse Ox 98% on BiPAP; kc6 12:21 BP 62 / 31; Pulse 22; Resp 21 S; Pulse Ox 96% on BiPAP; kc6 12:33 BP 60 / 35; Pulse 22; Resp 19 S; Pulse Ox 99% on BiPAP; kc6 12:49 BP 118 / 82; Pulse 40; Resp 16 S; Pulse Ox 100% on BiPAP; kc6 12:51 BP 129 / 78; Pulse 40; Resp 16 S; Pulse Ox 100% on BiPAP; kc6 12:54 BP 185 / 86; Pulse 92; Resp 20 S; Pulse Ox 100% on BiPAP; kc6 13:15 BP 157 / 36; Pulse 70; Resp 23 S; Pulse Ox 100% on BiPAP; kc6 13:21 BP 178 / 44; Pulse 47; Resp 18 S; Pulse Ox 100% on BiPAP; kc6 13:24 BP 183 / 37; Pulse 48; Resp 18 S; Pulse Ox 100% on BiPAP; kc6 13:27 BP 187 / 32; Pulse 48; Resp 17 S; Pulse Ox 100% on BiPAP; kc6 13:33 BP 154 / 74; Pulse 38; Resp 21 S; Pulse Ox 100% on BiPAP; kc6 13:36 BP 167 / 97; Pulse 56; Resp 15 S; Pulse Ox 100% on BiPAP; kc6 13:39 BP 139 / 34; Pulse 26; Resp 15 S; Pulse Ox 100% on BiPAP; kc6 13:45 BP 173 / 61; Pulse 45; Resp 19 S; Pulse Ox 99% on BiPAP; kc6 13:48 BP 184 / 66; Pulse 64; Resp 19 S; Pulse Ox 97% on BiPAP; kc6 13:51 BP 203 / 60; Pulse 63; Resp 12 A; Pulse Ox 93% on ETT ambu; kc6 13:54 BP 208 / 75; Pulse 47; Resp 12 A; Pulse Ox 100% on ETT vent; kc6 13:57 BP 219 / 85; Pulse 48; Resp 12 A; Pulse Ox 98% on ETT vent; kc6 14:00 BP 208 / 79; Pulse 47; Resp 18 A; Pulse Ox 99% on ETT vent; kc6 ED Course: 11:53 Maintain EMS IV. Dressing intact. Good blood return noted. Site clean \T\ dry. Gauge \T\ feli 6 site: 20G R WRIST. IV is patent, is intact, with fluids infusing freely, with good blood return. 11:53 Arm band placed on. kc6 11:53 Patient has correct armband on for positive identification. Placed in gown. Bed in low kc6 position. Call light in reach. Side rails up X2. security monitor on. Pulse ox on. NIBP on. Warm blanket given. Pillow given. 11:53 One-on-one care X 180 minutes. kc6 11:57 Patient arrived in ED. eb 12:05 Luan Figueroa MD is Attending Physician. eb 12:10 Triage completed. nj1 12:20 Inserted saline lock: 18 gauge in left antecubital area, using aseptic technique. hb 12:24 initiated a transfer with Jena Coello from the [facility]/. eb 12:43 CBC with Diff Sent. hb 12:43 Basic Metabolic Panel Sent. hb 12:44 Jayshree Perera, SARA is Primary Nurse. kc6 12:45 connected the router machine operator instrument mechanic weapons system for [facility] with Dr. Figueroa for patient eb transfer consultation. 13:14 Inserted saline lock: 18 gauge in right forearm, using aseptic technique. kc6 13:14 Inserted saline lock: 20 gauge in left forearm, using aseptic technique. kc6 13:[address] Beck the data processing mechanic instrument mechanic weapons system for [facility] with Dr. Figueroa for eb patient transfer consultation. 13:18 administrative approval given by Jena Coello Rn/ patient has been accepted to [facility] CCU bed 3/ Dr. Cardoso has accepted the patient in transfer/ report to be called to [phone]. 13:24 BMP Sent. kc6 13:41 Notified ED physician of a critical lab result(s). Dr Figueroa notified of abnormal lab tl4 results called by Jose from lab. Sodium 92, Glucose 1,705, Calcium 6.2, Potassium 7.4. 13:50 Assisted provider with intubation using 7.5 mm ETT via oral route. ET tube secured at kc6 24cm at the teeth. Set up intubation tray. Intubated by Luan Figueroa MD Placement verified by CO2 detector w/ + color change, auscultating bilateral breath sounds, End-tidal CO2 montioring CXR, Patient tolerated well. 13:52 NGT: inserted 16 Fr. via left nare. verified placement of air over stomach, verified kc6 return of gastric contents, Placement verified by X-ray, to intermittent suction. Returned gastric contents. Patient tolerated well. 14:19 Patient transferred, IV remains in place. kc6 14:23 XRAY Chest (1 view) In Process Unspecified. EDMS Administered Medications: 12:15 Drug: Norepinephrine IV 0.1 mcg/kg/min IV at calculated rate Per protocol; (Standard kc6 concentration 4 mg / 250 mL D5W); Recommended max rate 3 mcg/kg/min; Titrate 0.05 mcg/kg/min as often as every 5 minutes to achieve goal (see titration policy); Goal parameter MAP greater than 65 mmHg. Route: IV; Rate: calculated rate; Site: left antecubital; 12:17 Follow up: Rate change 0.5 mcg/kg/min kc6 12:19 Follow up: Rate change 1 mcg/kg/min kc6 13:23 Follow up: Response: No adverse reaction; IV Status: Completed infusion; IV Intake: kc6 250ml 12:30 Drug: Atropine IVP 1 mg IVP once Route: IVP; Site: right forearm; kc6 12:35 Follow up: Response: No adverse reaction; Cardiac rhythm is unchanged kc6 12:34 Drug: DOBUTamine IV (500 mg/250mL premix) 2.5 mcg/kg/min IV at calculated rate See kc6 Administration Instructions; Recommended max rate 20 mcg/kg/min; Titrate 2.5 mcg/kg/min as often as every 5 minutes to achieve goal (see titration policy); Goal parameter MAP greater than 65 mmHg. Route: IV; Rate: calculated rate; Site: left antecubital; 14:41 Follow up: Response: No adverse reaction; IV Status: Infusion continued upon transfer; kc6 IV Intake: 250ml 12:37 Drug: Calcium Chloride IVP 1 grams IVP once Route: IVP; Site: left antecubital; kc6 12:45 Follow up: Response: No adverse reaction [facility] 12:47 CANCELLED (Other Intervention Used): epinephrine (pf)0.01 mcg/kg/min IV at 1 mcg/kg/min kc6 See Administration Instructions; Standard concentration 4 mg / 250 mL D5W; Recommended max rate 2 mcg/kg/min; Titrate 0.01 mcg/kg/min as often as every 3 minutes to achieve goal [see titration policy]; Goal parameter MAP greater than 65 mmHg. 12:55 Drug: EPINEPHrine (PF) IV 0.01 mcg/kg/min IV at calculated rate See Administration kc6 Instructions; Standard concentration 4 mg / 250 mL D5W; Recommended max rate 2 mcg/kg/min; Titrate 0.01 mcg/kg/min as often as every 3 minutes to achieve goal [see titration policy]; Goal parameter MAP greater than 65 mmHg. Route: IV; Rate: calculated rate; Site: left antecubital; 14:41 Follow up: Response: No adverse reaction; Rate change 0.7 mcg/kg/min; IV Status: kc6 Infusion continued upon transfer; IV Intake: 250ml 13:03 Drug: Magnesium Sulfate IVPB 2 grams IVPB once over 2 hrs Route: IVPB; Infused Over: 2 kc6 hrs; Site: right forearm; 13:15 Follow up: Response: No adverse reaction; IV Status: Completed infusion; IV Intake: kc6 100ml 13:10 Drug: Sodium Bicarbonate IVP 2 amp IVP once; (50 mL); equals 50 mEq Route: IVP; Site: [facility] right forearm; 13:15 Follow up: Response: No adverse reaction [facility] 13:13 Drug: Calcium Gluconate IVPB 2 grams IVPB once over 60 mins; (mix in NS 100 mL) Route: kc6 IVPB; Infused Over: 60 mins; Site: right forearm; 13:30 Follow up: Response: No adverse reaction; IV Status: Completed infusion; IV Intake: kc6 200ml 13:44 CANCELLED (Physician Discretion): ns 0.9% 2000 ml IV at 1 bolus Per protocol; 1000 mL ec2 bolus 13:50 Drug: Etomidate IVP 30 mg IVP once Route: IVP; Site: right forearm; [facility] 13:55 Follow up: Response: No adverse reaction; RASS: Deep sedation (-4) kc6 13:50 Drug: Rocuronium IVP 100 mg IVP once Route: IVP; Site: right forearm; kc6 13:55 Follow up: Response: No adverse reaction kc6 14:11 Drug: Propofol IV 5 mcg/kg/min IV at calculated rate See Administration Instructions; kc6 Standard concentration 1000 mg / 100 mL; Recommended max rate 50 mcg/kg/min; Titrate 2 mcg/kg/min every 5 minutes to achieve goal (see titration policy); Goal parameter RASS score 0 to -2 Route: IV; Rate: calculated rate; Site: right forearm; 14:41 Follow up: Response: No adverse reaction; RASS: Deep sedation (-4); IV Status: Infusion kc6 continued upon transfer; IV Intake: 100ml 14:12 Drug: NS 0.9% IV 1000 ml IV at 1 bolus Per protocol; 1000 mL bolus Route: IV; Rate: 1 kc6 bolus; Site: right wrist; 14:41 Follow up: Response: No adverse reaction; IV Status: Infusion continued upon transfer; kc6 IV Intake: 1000ml Medication: 14:19 VIS not applicable for this client. kc6 Intake: 13:15 IV: 100ml; Total: 100ml. kc6 13:23 IV: 250ml; Total: 350ml. kc6 13:30 IV: 200ml; Total: 550ml. kc6 14:41 IV: 250ml; Total: 800ml. kc6 14:41 IV: 250ml; Total: 1050ml. kc6 14:41 IV: 1000ml; Total: 2050ml. kc6 14:41 IV: 100ml; Total: 2150ml. kc6 Outcome: 13:38 ER care complete, transfer ordered by . ec2 14:19 Transferred by [facility] to [facility], Transfer form completed. kc6 Note: report called to SARA Del Cid. pt with [facility] 14:19 critical 14:19 Instructed on the need for transfer, 14:41 Patient left the ED. kc6 Signatures: Dispatcher [employer] EDMS Arabella Izaguirre RN RN Leticia Benjamin Kaitlyn, RN RN kc6 Bina Davis RN RN nj1 Luan Figueroa MD MD ec2 Logdahl, Henry, RN RN tl4 Corrections: (The following items were deleted from the chart) 16:00 11:50 Reassessment: pt on a NRB at 15L/min by EMS, pt appears to be dusky and cyanotic kc6 upon transfer from EMS to ER stretcher. RT called, pt placed on BIPAP at this time. kc6
[2023-08-12] MEDS ORDERED: DOBUTAMINE 250 MG/250 ML BAG IV PRN (13:51)
[2023-08-12 14:54] VITALS: BP 157/36; O2SAT 100
--- NOTE | 2023-08-12 14:58 | RAD REPORT ---
EXAM DESCRIPTION: Binh Single View08/12/2023 2:21 pm CLINICAL HISTORY: Device placement endotracheal tube placement IMPRESSION: An endotracheal tube has been inserted with its tip just above the level of the aortic a rch. Nasogastric tube has been placed into the stomach.
[2023-08-12 15:15] LABS: Arterial Blood Carboxyhemoglob 1.1 % (0-1.5); Blood Gas THB 10.3 g/dl (12-18); Blood O2 Saturation 91.7 % (92-98.5)
--- NOTE | 2023-08-15 12:18 | EKG ---
Test Date: 2023-08-12 Test Time: 12:17:15 Drivability Technician: FABIOLA MEASUREMENT RESULTS: Intervals: Rate: 22 WA: QRSD: 144 QT: 776 QTc: 469 Zearing: P: WA: QRS: 20 T: 97 INTERPRETIVE STATEMENTS: Idioventricular rhythm with premature supraventricular complexes in a pattern of bigeminy and premature ventricular complexes o Left bundle branch block Abnormal ECG Compared to ECG 02/15/2022 14:28:07 Atrial premature complex(es) now present Ventricular premature complex(es) now present Left bundle-branch block now present Sinus rhythm no longer present First degree AV block no longer present Right bundle-branch block no longer present Myocardial infarct finding no longer present T-wave abnormality no longer present Possible ischemia no longer present Electronically Signed On 08-15-23 12:13:10 CDT by Flynn Hanson
== END 2023-08-12 14:41 | disposition short-term general hospital (02) ==
LOC: ER 11:46
DX: R00.1 Bradycardia, unspecified (principal); J44.9 Chronic obstructive pulmonary disease, unspecified; I50.9 Heart failure, unspecified; I10 Essential (primary) hypertension; Z95.0 Presence of cardiac pacemaker
CPT/HCPCS: 93005; 85025; 80048 ×2; 36415; 85610; 82947 ×2; 85730; 84484; 83880; 71045; 82805; 31500; 99291; 99292; 36600; 94660; J2704; J3475; J0612; J0171 ×3; J7060 ×3; J1250

== ENCOUNTER 2023-10-03 16:36 | Emergency (ER) | payer OTHER ==
--- NOTE | 2023-10-03 17:08 | ER ---
Nurse's Notes [facility] Name: Harriet Perera Age: 63 yrs Sex: Female : 1960 Arrival Date: 10/03/2023 Time: 16:36 Bed 2 Private MD: Diagnosis: Presence of cardiac pacemaker;Complete heart block Presentation: 10/02 16:50 Chief complaint: EMS states: toned out for bradycardia. HR is dropping down to 30s and me1 40s with a pacemaker. Patient states she just had a pacemaker malfunction and had to get it reset. No distress noted. 22 g R hand with about 200 ml of NS administered. Coronavirus screen: Vaccine status: Patient reports receiving the 2nd dose of the covid vaccine. Ebola Screen: No symptoms or risks identified at this time. Initial Sepsis Screen: Does the patient meet any 2 criteria? No. Patient's initial sepsis screen is negative. Does the patient have a suspected source of infection? No. Patient's initial sepsis screen is negative. Risk Assessment: Do you want to hurt yourself or someone else? Patient reports no desire to harm self or others. Onset of symptoms is unknown. 16:50 Method Of Arrival: EMS: [facility] me1 16:50 Acuity: CHRIS 3 me1 18:11 Acuity: CHRIS 2 ph Historical: - Allergies: 16:55 Motrin; me1 16:55 surgical tape; me1 16:55 Ibuprofen; me1 - PMHx: 16:55 Chronic obstructive lung disease; Congestive heart failure; Diabetes - NIDDM; me1 Hypertension; Hypercholesterolemia; - PSHx: 16:55 Cholecystectomy; pacemaker; me1 - Immunization history:: Adult Immunizations up to date. - Infectious Disease History:: Denies. - Social history:: Smoking status: Patient reports the use of cigarette tobacco products, smokes one-half pack cigarettes per day. Screenin:07 [facility] ED Fall Risk Assessment (Adult) History of falling in the last 3 months, me1 including since admission No falls in past 3 months (0 pts) Confusion or Disorientation No (0 pts) Intoxicated or Sedated No (0 pts) Impaired Gait No (0 pts) Mobility Assist Device Used No (0 pt) Altered Elimination No (0 pt) Score/Fall Risk Level 0 - 2 = Low Risk Maintained a safe environment, Provided non-skid footwear, Hourly rounding (assess needs \T\ fall precautionary measures) done. Abuse screen: Denies threats or abuse. Nutritional screening: No deficits noted. Tuberculosis screening: No symptoms or risk factors identified. Assessment: 17:07 General: Appears comfortable, obese, well groomed, well developed, Behavior is calm, me1 cooperative, appropriate for age. Pain: Denies pain. Neuro: Level of Consciousness is awake, alert, obeys commands, Oriented to person, place, time, situation, Appropriate for age. Cardiovascular: Denies chest pain, shortness of breath, Patient's skin is warm and dry. Respiratory: Airway is patent Respiratory effort is even, unlabored, Respiratory pattern is regular, symmetrical. GI: No signs and/or symptoms were reported involving the gastrointestinal system. : No signs and/or symptoms were reported regarding the genitourinary system. EENT: No signs and/or symptoms were reported regarding the EENT system. Derm: Skin is intact, is healthy with good turgor, Skin is pink, warm \T\ dry. Musculoskeletal: No signs and/or symptoms reported regarding the musculoskeletal system. 19:15 General: Appears in no apparent distress. comfortable, Behavior is calm, cooperative. al5 Pain: Denies pain. Neuro: Level of Consciousness is awake, alert, obeys commands, Oriented to person, place, time, situation. Cardiovascular: Reports low hr, pacemaker not firing correctly. Denies chest pain, shortness of breath, Patient's skin is warm and dry. Respiratory: Airway is patent Respiratory effort is even, unlabored, Respiratory pattern is regular, symmetrical. GI: No signs and/or symptoms were reported involving the gastrointestinal system. : No signs and/or symptoms were reported regarding the genitourinary system. EENT: No signs and/or symptoms were reported regarding the EENT system. Derm: Skin is intact, Skin is pink, warm \T\ dry. normal. Musculoskeletal: No signs and/or symptoms reported regarding the musculoskeletal system. Vital Signs: 16:50 BP 115 / 65; Pulse 38; Resp 16; Temp 97.6; Pulse Ox 100% on 4 lpm NC; Weight 107.5 kg; me1 Height 5 ft. 5 in. ; Pain 0/10; 17:30 BP 100 / 75; Pulse 37; Resp 19; Pulse Ox 100% on 4 lpm NC; me1 19:00 BP 113 / 31; Pulse 38; Resp 16; Pulse Ox 100% on R/A; al5 19:18 BP 116 / 45; Pulse 36; Resp 15; Pulse Ox 100% on R/A; al5 19:30 BP 124 / 62; Pulse 27; Resp 14; Pulse Ox 99% on R/A; al5 20:00 BP 119 / 30; Pulse 70; Resp 20; Pulse Ox 100% on R/A; al5 20:15 BP 99 / 49; Pulse 33; Resp 15; Pulse Ox 100% on R/A; al5 20:30 BP 113 / 31; Pulse 35; Resp 14; Pulse Ox 100% ; al5 16:50 Body Mass Index 39.44 (107.50 kg, 165.1 cm) me1 16:50 Pain Scale: Adult [facility] ED Course: 16:44 Patient arrived in ED. iw 16:46 Tamiko Skinner, RN is Primary Nurse. me1 16:47 Radhames Beal DO is Attending Physician. ms3 16:55 Triage completed. me1 16:55 Arm band placed on Patient placed in an exam room. me1 17:07 Patient has correct armband on for positive identification. Bed in low position. Call [facility] light in reach. Side rails up X2. Provided Education on: POC. Verbalized understanding. . Client placed on continuous cardiac and pulse oximetry monitoring. NIBP monitoring applied. night monitor on. Pulse ox on. NIBP on. 17:07 No provider procedures requiring assistance completed. Maintain EMS IV. Dressing [facility] intact. Good blood return noted. Site clean \T\ dry. Gauge \T\ site: 22 R hand. Flushed with 10 mL NS. 17:15 spoke with Allan at [facility]. bc6 17:24 Basic Metabolic Panel Sent. me1 17:24 CBC with Diff Sent. me1 17:24 Magnesium Sent. me1 17:24 NT PRO-BNP Sent. me1 17:24 Troponin HS Sent. me1 17:24 Initial lab(s) drawn, by hi, sent to lab. me1 17:26 XRAY Chest (1 view) In Process Unspecified. EDMS 18:20 received acceptance with allan for [facility] ED. bc6 19:09 Primary Nurse role handed off by Tamiko Skinner, RN al5 19:09 Anastasiia Stratton, RN is Primary Nurse. al5 19:26 [id number]. 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 20:59 Patient transferred, IV remains in place. al5 Administered Medications: 19:00 Drug: DOPamine 5 mcg/kg/min IV at mcg/kg/min continuous Route: IV; Rate: mcg/kg/min; ph Site: left hand; 21:02 Follow up: Response: No adverse reaction; No change in condition; IV Status: Infusion al5 continued upon transfer Medication: 17:07 VIS not applicable for this client. me1 Outcome: 17:08 ER care complete, transfer ordered by . ms3 21:01 Transferred by ground EMS to [facility], Transfer form completed. al5 21:01 Condition: stable 21:01 Instructed on the need for transfer, 21:14 Patient left the ED. al5 Signatures: Dispatcher [employer] EDShayna Green, SARA RUIZ Diane Bunch RN RN Radhames Beal DO DO ms3 ReenaStephanie munroeana 6 Tamiko Skinner, SARA RN me1 Floridalma Lopez Anastasiia Stratton, SARA RN al5 Corrections: (The following items were deleted from the chart) 17:48 16:50 BP 115 / 65; Pulse 38bpm; Resp 16bpm; Pulse Ox 100%; Temp 97.6F; 107.5 kg; Height me1 5 ft. 5 in.; BMI: 39.4; Pain 0/10, Adult; me1
--- NOTE | 2023-10-03 17:08 | EDPHYS ---
Physician Documentation [facility] Name: Harriet Perera Age: 63 yrs Sex: Female : 1960 Arrival Date: 10/03/2023 Time: 16:36 Bed 2 Private MD: ED Physician Radhames Beal HPI: 10/02 18:01 This 63 yrs old Female presents to ER via EMS with complaints of slow heart rate. ms3 18:01 63-year-old female past medical history of COPD, congestive heart failure, diabetes, ms3 hypertension presents to the emergency department for slow heart rate. Patient states she was being evaluated by her home health nurse today when she noted her heart to be slow. Patient states she was admitted to [facility] in August and her pacemaker had to be rebooted.. Historical: - Allergies: 16:55 Motrin; me1 16:55 surgical tape; me1 16:55 Ibuprofen; me1 - PMHx: 16:55 Chronic obstructive lung disease; Congestive heart failure; Diabetes - NIDDM; me1 Hypertension; Hypercholesterolemia; - PSHx: 16:55 Cholecystectomy; pacemaker; me1 - Immunization history:: Adult Immunizations up to date. - Infectious Disease History:: Denies. - Social history:: Smoking status: Patient reports the use of cigarette tobacco products, smokes one-half pack cigarettes per day. ROS: 18:01 Constitutional: Negative for fever, and chills. ms3 18:01 Respiratory: Negative for shortness of breath, cough, wheezing, and pleuritic chest pain, Abdomen/GI: Negative for abdominal pain, nausea, vomiting, diarrhea, and constipation, MS/Extremity: Negative for injury and deformity, Skin: Negative for injury, rash, and discoloration, 18:01 Cardiovascular: Positive for Bradycardia, Exam: 18:01 Constitutional: This is a well developed, well nourished patient who is awake, alert, ms3 and in no acute distress. Respiratory: Lungs have equal breath sounds bilaterally, clear to auscultation and percussion. No rales, rhonchi or wheezes noted. No increased work of breathing, no retractions or nasal flaring. Abdomen/GI: Soft, non-tender, with normal bowel sounds. No distension or tympany. No guarding or rebound. No evidence of tenderness throughout. Skin: Warm, dry with normal turgor. Normal color with no rashes, no lesions, and no evidence of cellulitis. MS/ Extremity: Pulses equal, no cyanosis. Neurovascular intact. Full, normal range of motion. 18:01 Cardiovascular: Rate: bradycardic, Rhythm: regular, Pulses: no pulse deficits are appreciated, Heart sounds: normal, normal S1and S2, Vital Signs: 16:50 BP 115 / 65; Pulse 38; Resp 16; Temp 97.6; Pulse Ox 100% on 4 lpm NC; Weight 107.5 kg; me1 Height 5 ft. 5 in. ; Pain 0/10; 17:30 BP 100 / 75; Pulse 37; Resp 19; Pulse Ox 100% on 4 lpm NC; me1 19:00 BP 113 / 31; Pulse 38; Resp 16; Pulse Ox 100% on R/A; al5 19:18 BP 116 / 45; Pulse 36; Resp 15; Pulse Ox 100% on R/A; al5 19:30 BP 124 / 62; Pulse 27; Resp 14; Pulse Ox 99% on R/A; al5 20:00 BP 119 / 30; Pulse 70; Resp 20; Pulse Ox 100% on R/A; al5 20:15 BP 99 / 49; Pulse 33; Resp 15; Pulse Ox 100% on R/A; al5 20:30 BP 113 / 31; Pulse 35; Resp 14; Pulse Ox 100% ; al5 16:50 Body Mass Index 39.44 (107.50 kg, 165.1 cm) me1 16:50 Pain Scale: Adult me1 MDM: 16:56 Patient medically screened. ms3 18:01 ED course: Discussed transfer with Karl in transfer center and she is awaiting ms3 Cardiology callback.. 18:01 Differential diagnosis: abnormal EKG, Heart block vs Electrolyte abnormality. ms3 19:08 Data reviewed: vital signs, nurses notes, lab test result(s), EKG, radiologic studies, ms3 and as a result, I will Transfer. Consideration of Admission/Observation Patient transferred to higher level of care. Management of patient was discussed with the following: Passenger [employer] Upholsterer Apprentice: Cardiology. ER physician. I considered the following discharge prescriptions or medication management in the emergency department Medications were administered in the Emergency Department. See MAR. Independent interpretation of the following test(s) in the Emergency Department EKG: See my EKG interpretation above. Counseling: I had a detailed discussion with the patient and/or guardian regarding the historical points, exam findings, and any diagnostic results supporting the discharge/admit diagnosis, lab results, radiology results, the need to transfer to another facility, for higher level of care. ED course: Case was discussed with Dr. Callahan, cardiology at [facility], and he recommends patient to be started on dopamine. Discussed case with the emergency department physician and he accepts the patient.. 10/02 16:57 Order name: Basic Metabolic Panel; Complete Time: 17:58 ms3 10/02 16:57 Order name: CBC with Diff; Complete Time: 17:58 ms3 10/02 16:57 Order name: Magnesium; Complete Time: 17:58 ms3 10/02 16:57 Order name: NT PRO-BNP; Complete Time: 17:58 ms3 10/02 16:57 Order name: Troponin HS; Complete Time: 17:58 ms3 10/02 16:57 Order name: XRAY Chest (1 view) ms3 10/02 16:57 Order name: Cardiac monitoring; Complete Time: 17:07 ms3 10/02 16:57 Order name: EKG - Nurse/Tech; Complete Time: 17:07 ms3 10/02 16:57 Order name: IV Saline Lock; Complete Time: 17:07 ms3 10/02 16:57 Order name: Labs collected and sent; Complete Time: 17:24 ms3 10/02 16:57 Order name: O2 Per Protocol; Complete Time: 17:07 ms3 10/02 16:57 Order name: O2 Sat Monitoring; Complete Time: 17:07 ms3 Administered Medications: 19:00 Drug: DOPamine 5 mcg/kg/min IV at mcg/kg/min continuous Route: IV; Rate: mcg/kg/min; ph Site: left hand; 21:02 Follow up: Response: No adverse reaction; No change in condition; IV Status: Infusion al5 continued upon transfer Disposition: 19:08 Critical Care:. ms3 Disposition Summary: 10/03/23 17:08 Transfer Ordered Notes: Transfer Location: [facility] ms3 Reason: Higher level of care ms3 Condition: Stable ms3 Problem: new ms3 Symptoms: are unchanged ms3 Accepting Physician: (10/03/23 21:14) al5 Diagnosis - Presence of cardiac pacemaker ms3 - Complete heart block ms3 Forms: - Medication Reconciliation Form ms3 - SBAR form ms3 Critical care time excluding procedures: 19:08 Critical care time: Bedside Care: 40 minutes, Consultation: 10 minutes, Family ms3 Intervention: 10 minutes. Total time: 60 minutes Signatures: Dispatcher [employer] EDMS Diane Bunch RN RN [facility] [place], Radhames, DO DO ms3 Tamiko Skinner RN RN me1 Anastasiia Stratton RN RN al5 Corrections: (The following items were deleted from the chart) 16:57 16:57 BASIC METABOLIC PANEL+C.LAB.BRZ ordered. EDMS EDMS 16:57 16:57 CBC+H.LAB.BRZ ordered. EDMS EDMS 16:57 16:57 MAGNESIUM+C.LAB.BRZ ordered. EDMS EDMS 16:57 16:57 PROBNP+C.LAB.BRZ ordered. EDMS EDMS 16:57 16:57 Troponin High Sensitivity+C.LAB.BRZ ordered. EDMS EDMS 16:57 16:57 Chest Single View+RAD.RAD.BRZ ordered. EDMS EDMS 21:14 17:08 ms3 al5
[2023-10-03 17:31] LABS: Absolute Basophils 0.1 K/uL (0-0.5); Absolute Eosinophils 0.2 K/uL (0-0.5); Absolute Lymphocytes (CBC) 2.3 K/uL (0.7-4.9); Absolute Monocytes 0.9 K/uL (0.1-1.3); Absolute Neutrophil 9.9 K/uL (1.8-8.0); Basophils % 0.5 % (0-1.3); Eosinophils % 1.5 % (0-4.4); Hematocrit 35.9 % (36.0-45.0); Hemoglobin 11.6 g/dL (12.0-15.0); Lymphocytes % 16.9 % (15.3-44.8); MCHC 32.3 g/dL (32.0-36.0); MCV 86.7 fL (80-100); MPV 7.9 fL (7.6-11.3); Monocytes % 6.9 % (3.3-12.3); Neutrophils % 74.2 % (41.7-73.7); Nucleated Red Blood Cells % 0.1 % (0-0); Platelets 325 thou/uL (152-406); RBC Red Blood Cell Count 4.14 M/uL (3.86-4.86); Red Cell Distribution Width 16.2 % (12.1-15.2)
--- NOTE | 2023-10-03 17:33 | RAD REPORT ---
EXAM DESCRIPTION: RAD - Chest Single View - 10/03/2023 5:24 pm CLINICAL HISTORY: bradycardia Chest pain. COMPARISON: Chest Single View dated 08/12/2023; Chest Single View dated 02/15/2022; Chest Single View d ated 02/15/2022; Chest Single View dated 02/07/2022 FINDINGS: Portable technique limits examination quality. Mild pulmonary edema. The heart is moderately enlarged in size. No displaced fractures.Dual lead pace r device is present. IMPRESSION: Mild CHF.
[2023-10-03 17:51] LABS: Anion Gap 9.9 mEq/L (5.0-15.0); Magnesium 2.3 mg/dL (1.6-2.4); Potassium 3.9 mEq/L (3.5-5.1); Troponin High Sensitivity 27.4 pg/mL (<58.9)
[2023-10-03] MEDS ORDERED: DOPAMINE/D5W 400 MG/250 ML BAG IV ONE (18:50)
[2023-10-03 21:19] VITALS: TEMP 97.6
[2023-10-03 21:25] VITALS: O2SAT 100
[2023-10-03 21:27] VITALS: BP 113/31
== END 2023-10-03 21:14 | disposition short-term general hospital (02) ==
LOC: ER 16:36
DX: I44.2 Atrioventricular block, complete (principal); Z95.0 Presence of cardiac pacemaker; F17.210 Nicotine dependence, cigarettes, uncomplicated; I10 Essential (primary) hypertension; I50.9 Heart failure, unspecified; J44.9 Chronic obstructive pulmonary disease, unspecified
CPT/HCPCS: 85025; 80048; 36415; 83735; 84484; 83880; 71045; J1265